=== PATIENT | male | born 1950 | race Caucasian/White ===

== ENCOUNTER 2021-06-22 22:54 | Inpatient (IN) | payer MEDICARE, SELFPAY ==
[2021-06-22 22:56] VITALS: BP 96/82; PULSE 131; RESP 24; TEMP 36.8; O2SAT 100; BMI 24.2
--- NOTE | 2021-06-22 23:10 | EKG12_ITS ---
Test Reason : DYSRHYTHMIA Blood Pressure : / mmHG Vent. Rate : 132 BPM Atrial Rate : 144 BPM P-R Int : 000 ms QRS Dur : 082 ms QT Int : 326 ms P-R-T Axes : 000 063 031 degrees QTc Int : 483 ms Atrial fibrillation Abnormal ECG Confirmed by BRIAN WALTER, PABLITO ([id number]), editor sound LOAN WILKS ([id number]) on 06/23/2021 1:55:57 P M Referred By: TOMMIE Confirmed By:JUDY TORRES MD
[2021-06-22] MEDS: 0.9% Normal Saline 1,000 ML 1000 ML IV (23:27)
[2021-06-22 23:36] LABS: Absolute Lymphocyte Count 0.37 X10^3/uL (0.83-4.51); Absolute Neutrophil Count 10.5 X10^3/uL (2.0-7.7); Basophil# 0.01 X10^3/uL; Basophil% 0.1 % (0-1); Eosinophil# 0.03 X10^3/uL; Eosinophils% 0.3 % (0-5); Hematocrit 20.4 % (40-54); Hemoglobin 6.8 g/dL (13.0-16.5); Lymphocyte # 0.37 X10^3/ul (0.83-4.51); Lymphocyte % 3.2 % (19-41); Mean Corp Hgb Conc 33.3 g/dL (32-36); Mean Corpuscular Hgb 27.5 pg (27.0-32.0); Mean Corpuscular Volume 82.6 fL (80-94); Mean Platelet Vol. 11.2 fl (6.2-12.0); Monocyte# 0.51 X10^3/uL; Monocyte% 4.4 % (0-10); NRBC Flagged by Analyzer 0 % (0-5); Neutrophil # 10.53 X10^3/uL (2.7-7.7); Neutrophil % 91.1 % (47-70); POSITIVE DIFFERENTIAL YES; Platelet Count 137 K/mm3 (150-450); RBC Distribution Width CV 16.3 % (11.6-14.6); RBC Distribution Width SD 49.6 fl (35.1-43.9); Red Blood Count 2.47 M/mm3 (4.6-6.2); White Blood Count 11.6 K/mm3 (4.4-11.0)
--- NOTE | 2021-06-22 23:48 | EDS_ITS ---
HPI HPI - GI History of Present Illness Chief Complaint: GI Bleed Informant: EMS and SNF Abdominal Pain/Flank Pain Onset: Today Worsened by: Nothing Relieved by: Nothing Nausea/Vomiting/Emesis GI Symptom: Positive for Nausea and Vomiting Quality: Positive for Hematemesis Diarrhea/Melena/Hematochezia GI Symptom: Positive for Hematochezia Stool Quality: Positive for BRB per rectum Narrative Narrative: Patient presents with gastrointestinal bleeding that was noticed today. Patient is from a [facility] facility. Patient was noted to have hematemesis and bright red rectal bleeding today. Patient is nonverbal and is a poor historian. Patient was also noted to have a low blood pressure upon arrival to the emergency department. [facility] Medical History A-fib CKD (chronic kidney disease) Diabetes type 2, controlled Diabetic nephropathy Diabetic retinopathy Gout Hyperlipemia Hypertension Irregular heart beat Nephrolithiasis Home Medications doxazosin 2 mg PO QHS 06/27/17 [History Last Taken Unknown] metoprolol succinate 50 mg PO DAILY 06/27/17 [History Last Taken 07/04/17 07:30] simvastatin 20 mg PO QHS 06/27/17 [History Last Taken Unknown] albuterol sulfate 2.5 mg INHALATION Q2H PRN 06/22/21 [History Last Taken Unknown] apixaban [Eliquis] 2.5 mg PO BID 06/22/21 [History Last Taken Unknown] dexamethasone 6 mg PO DAILY 06/22/21 [History Last Taken Unknown] diltiazem HCl 180 mg PO DAILY 06/22/21 [History Last Taken Unknown] fluoxetine [Prozac] 20 mg PO DAILY 06/22/21 [History Last Taken Unknown] lisinopril 40 mg PO DAILY 06/22/21 [History Last Taken Unknown] melatonin 3 mg PO QHS 06/22/21 [History Last Taken Unknown] ergocalciferol (vitamin D2) 1,250 mcg PO QWEEK 06/23/21 [History Last Taken Unknown] Allergy/AdvReac Type Severity Reaction Status Date / Time Iodinated Contrast Media Allergy Hives Verified 06/22/21 22:55 [Iodinated Contrast- Oral and IV Dye] Family History (Updated 06/23/21 @ 04:[address] Sheridan Sheridan MD) Mother Heart disease Father Heart disease Surgical History Hx of appendectomy Hx of arteriovenostomy for renal dialysis Hx of cholecystectomy Hx of shoulder surgery Social History (Updated 06/23/21 @ 04:[address] Sheridan Sheridan MD) housing: halfway Smoking Status: Former smoker second hand exposure: No alcohol intake: never substance use type: does not use caffeine: Yes what type of physical activity do you participate in: none seatbelt use: always ROS ROS ED Review of Systems ROS Unobtainable: due to mental condition and due to mental status EXAM Physical Exam Const Vital Signs: 06/22/21 22:56 06/23/21 00:27 06/23/21 02:11 Temperature 98.2 F 96.8 F L Temperature Source Oral Temporal Pulse Rate 131 H 123 H 109 H Respiratory Rate 24 H 21 H 22 H Blood Pressure 96/82 H 78/56 L 60/43 L Blood Pressure Mean 86 63 48 Blood Pressure Source Monitor Blood Pressure Position Pulse Ox 100 100 100 Oxygen Delivery Method Room Air Nasal Cannula Oxygen Flow Rate (L/min) 5 06/23/21 02:24 06/23/21 02:25 06/23/21 02:26 Temperature 96.8 F L 96.2 F L Temperature Source Temporal Temporal Pulse Rate 115 H 115 H 120 H Respiratory Rate 19 H 19 H 24 H Blood Pressure 56/34 L 56/34 L 78/52 L Blood Pressure Mean 41 41 60 Blood Pressure Source Blood Pressure Position Semi-Fowlers Pulse Ox 100 100 100 Oxygen Delivery Method Nasal Cannula Nasal Cannula Nasal Cannula Oxygen Flow Rate (L/min) 5 5 5 06/23/21 03:01 Temperature Temperature Source Pulse Rate 129 H Respiratory Rate 24 H Blood Pressure 96/49 L Blood Pressure Mean 64 Blood Pressure Source Blood Pressure Position Pulse Ox 100 Oxygen Delivery Method Nasal Cannula Oxygen Flow Rate (L/min) Positive well nourished and well developed General Appearance ED: well developed and pallor HEENT Reports moist mucous membranes Neck supple and no JVD Resp normal respiratory effort and clear to auscultation bilaterally Cardio Rate: tachycardic Rhythm: abnormal rhythm irregularly irregular GI non-tender Palpation: soft Neuro CN's II-XII intact bilaterally Sensorium / Orientation: alert and confused Skin General Skin Exam: pallor MDM MDM MDM Narrative Medical decision making narrative: Patient was given IV fluids. CBC shows a hemoglobin of 6.8 and hematocrit of 20.4. White blood cell count is slightly elevated at 11.6. PT with INR were 16.7 and 1.4. PTT was 42.2. Comprehensive metabolic profile showed a BUN of 88 and creatinine of 5.13. EKG was obtained. On my interpretation, it showed atrial fibrillation with a rate of 132. QRS was normal. QTC was normal. Berkley was normal. There are no acute ST or T wave changes. Patient was given a dose of Protonix here. Patient was typed and crossed for a unit of blood. Transfusion was started. Case was discussed with the . She is agreeable to having the patient get a transfusion of blood and endoscopy if needed. She is agreeable to having the patient started on vasopressors. Because of this, a right internal jugular triple-lumen catheter was placed. The right internal jugular area was cleaned and prepped in a sterile manner. 1% lidocaine was infiltrated locally. A triple-lumen catheter was inserted under sterile conditions using ultrasound guidance and Seldinger technique. Patient tolerated the procedure well. Postprocedure chest x-ray was ordered. Case was discussed with the hospitalist. She will admit the patient to ICU. Lab Data Attestation: I reviewed the patient's lab results. Labs: Laboratory Results - last 24 hr 06/22/21 06/22/21 06/22/21 22:34 22:34 22:34 WBC 11.6 H RBC 2.47 L Hgb 6.8 L Hct 20.4 L MCV 82.6 MCH 27.5 MCHC 33.3 RDW Std Deviation 49.6 H RDW Coeff of Rose 16.3 H Plt Count 137 L MPV 11.2 Immature Gran % (Auto) 0.900 Neut % (Auto) 91.1 H Lymph % (Auto) 3.2 L [place] % (Auto) 4.4 Eos % (Auto) 0.3 Baso % (Auto) 0.1 Absolute Neuts (auto) 10.5 H Absolute Lymphs (auto) 0.37 L Nucleated RBC % 0 Hypochromasia 1+ Anisocytosis 1+ Acanthocytes (Spur) RARE PT 16.7 H INR 1.4 APTT 42.2 H Sodium 134 L Potassium 4.2 Chloride 93 L Carbon Dioxide 33.0 H Anion Gap 8 BUN 88 H Creatinine 5.13 H Estim Creat Clear Calc 13.21 Est GFR (MDRD) Af Amer 14 L Est GFR (MDRD) Non-Af 12 L BUN/Creatinine Ratio 17.2 Glucose 266 H Calcium 6.9 L Total Bilirubin 0.40 AST 8 L ALT 7 L Alkaline Phosphatase 69 Troponin I High Sens 7 Total Protein 4.3 L Albumin 1.0 L Globulin 3.3 Albumin/Globulin Ratio 0.3 L Lipase 34 L Blood Type Antibody Screen Crossmatch 06/22/21 23:35 WBC RBC Hgb Hct MCV MCH MCHC RDW Std Deviation RDW Coeff of Rose Plt Count MPV Immature Gran % (Auto) Neut % (Auto) Lymph % (Auto) [place] % (Auto) Eos % (Auto) Baso % (Auto) Absolute Neuts (auto) Absolute Lymphs (auto) Nucleated RBC % Hypochromasia Anisocytosis Acanthocytes (Spur) PT INR APTT Sodium Potassium Chloride Carbon Dioxide Anion Gap BUN Creatinine Estim Creat Clear Calc Est GFR (MDRD) Af Amer Est GFR (MDRD) Non-Af BUN/Creatinine Ratio Glucose Calcium Total Bilirubin AST ALT Alkaline Phosphatase Troponin I High Sens Total Protein Albumin Globulin Albumin/Globulin Ratio Lipase Blood Type O POSITIVE Antibody Screen NEGATIVE Crossmatch See Detail Radiography Diagnostic Testing: Clinical Impression(s) from Imaging Studies Chest X-Ray 06/23/21 03:00 IMPRESSION: Right IJ central catheter terminates over the superior cavoatrial junction. Multifocal pneumonia versus pulmonary edema. Electronically Signed: Lloyd Samuel MD at 4:47 EDT Tel , Service support , Treatment and Re-Evaluation Vital Sign Attestation:: Vital signs were reviewed prior to admission. Patient's blood pressure is improving. Heart rate is improving. Respirations are stable. Patient is afebrile. Procedures Other Procedures Procedure(s): The right anterior neck was cleaned and draped in a sterile manner. 1% lidocaine was infiltrated subcutaneously. Under ultrasound guidance, the right internal jugular vein was cannulated and a guidewire was inserted. A venous dilator was placed over the guidewire and removed. A triple-lumen catheter was then inserted over the guidewire. The guidewire was removed. The triple-lumen catheter was sutured in place. The ports were aspirated and flushed. There is good blood return. Sterile dressing was applied. Patient tolerated the procedure well. Postprocedure chest x-ray was obtained. Discharge Plan Dx/Rx/DC Orders Clinical Impression: Gastrointestinal bleeding, Anemia Disposition Disposition: Acute Care Hospital [facility] Discharge Date/Time: 06/23/21 04:32
[2021-06-22 23:51] LABS: ALB/GLOB Ratio 0.3 RATIO (0.9-2.4); AST(SGOT) 8 U/L (15-37); Alanine Aminotransfer ALT/SGPT 7 U/L (16-61); Alkaline Phosphatase 69 U/L (45-117); Anion Gap 8 (5-15); BUN 88 mg/dL (7-18); BUN/Creat Ratio 17.2 RATIO (10-20); Calcium,Total 6.9 mg/dL (8.5-10.1); Chloride 93 mmol/L (98-107); Creatinine, Serum 5.13 mg/dL (0.70-1.30); EST Glomerular Filtration Rate 12 mL/min (>60); Est Glom Filt Rate - Afr Amer 14 mL/min (>60); Estimated Creatinine Clearance 13.21 ml/min; Globulin 3.3 g/dL (2.2-4.2); Glucose 266 mg/dL (74-106); Lipase 34 U/L (73-393); Potassium 4.2 mmol/L (3.5-5.1); Protein, Total 4.3 g/dL (6.4-8.2); Sodium Level 134 mmol/L (136-145); Troponin-I HS 7 pg/mL (3.0-78.0)
[2021-06-22 23:56] LABS: Differential Indicated SCAN CRITERIA MET
[2021-06-23] VITALS (45 sets, daily range): BP systolic 56–126; BP diastolic 34–72; PULSE 100–147; RESP 15–33; TEMP 35.7–37.1; O2SAT 2–100; BMI 22.4
--- NOTE | 2021-06-23 | IMM_PTH ---
PATIENT: VALENTINA MAHONEY LOC: [facility] U#:[id number] AGE/SX: 70/M ROOM: [facility] RE06/23/[address]: Dr. Janusz Peralta MD : 1950 BED: 1 DIS: 06/30/2021 SPEC #: [id number] RECD: 06/27/21 12:44 STATUS: TRU REQ #: [id number] KENYATTA: 06/23/21 00:[address]: Hermes Interiano DEPT: IMMUNOHISTOCHEMISTRY RECD BY: Yolanda Talamantes ENTERED: 06/27/21 12:45 SP TYPE: IMMUNO OTHR DR: MD Dr. Sheridan Parry MD Dr. Derek Brown, DO Dr. Nicholas F Kotsonis, MD Dr. Paul Nielsen, MD Tissues: Stomach, NOS Procedures: H Pylori (initial) PHYSICIAN & INSTITUTION [place] [id number] SPECIMEN INFORMATION: Tissue Source: 2.1 cm crater ulcer at incisura Clinical Info: GI bleed Specimen Number: [id number] CPT code: 97925 METHODOLOGY: Deparaffinized sections of prefer/formalin-fixed tissue or PAP/DQ stained slides are incubated with monoclonal/polyclonal antibodies/oligonucleotide probes. Localization is made via biotin free immunoperoxidase method. Appropriate controls are performed and reacted as expected. Results on target cell population are indicated in the following table: RESULTS: ANTIBODY / CLONE RESULT H Pylori (polyclonal) negative These tests were developed and their performance characteristics determined by [facility]. They may not have been cleared or approved by the U.S. Food and Drug Administration. The FDA has determined that such clearance or approval is not necessary. The above immunohistochemical/dualISH markers are ordered and reviewed by the Pathologist. INTERPRETATION: Gastric biopsy, ulcer at incisura: Negative for Helicobacter pylori organisms. SJ:cj 06/28/2021
[2021-06-23 00:04] LABS: International Normalized Ratio 1.4; Prothrombin Time (Protime)PT. 16.7 SECONDS (11.7-14.9)
[2021-06-23 00:05] LABS: Partial Thromboplast Time 42.2 Seconds (24.1-36.2)
--- NOTE | 2021-06-23 01:15 | PCM.HP.STD ---
HPI - General General Date of Admission: 06/23/21 Date of Service: 06/23/21 Chief Complaint: Hematemesis, rectal bleeding, hematuria HPI Narrative The patient is a 70 y/o M w/ PMHx: ESRD on HD, HTN, HLD, PAF, Diabetes mellitus type II, Former tobacco use who presents to the [facility] ED on 06/23/21 from [facility] with history of onset significant bouts of hematemesis noted to be bright red as well as bright red rectal bleeding and possibly hematuria with lower blood pressures as well as increased fatigue, malaise and confusion prompting ED referral. No reported history of any fevers, chills, cough or dyspnea at facility. Work-up in the ED included T 98.2, heart rate 131, BP initially 96/82 with most recent repeat 78/56, respiratory rate 24, on her percent on room air, CBC with WBC 11.6, hemoglobin 6.8, platelet 137 with left shift and lymphopenia, coags with PT 16.7, INR 1.4, PTT 42.2, CMP with sodium 134, chloride 93, carbon oxide 33, BUN/creatinine 88/5.13, glucose 266, not marked hepatic profile, lipase 34, type and cross performed per ED physician for 1 unit and discussed with ED with request for 2nd unit also. In the ED patient administered pantoprazole 80 mg IV bolus x1 as well as 1 L normal saline. Also discussed plan for ED to discuss case with Gastroenterology and Kcentra ordered/discussed with Pharmacy. Patient became increasingly hypotension in the ED with central line placement and NEP initiated. [facility] Medical History (Updated 06/23/21 @ 04:[address] Sheridan Sheridan MD) A-fib CKD (chronic kidney disease) Diabetes type 2, controlled Diabetic nephropathy Diabetic retinopathy Gout Hyperlipemia Hypertension Irregular heart beat Nephrolithiasis Home Medications doxazosin 2 mg PO QHS 06/27/17 [History Last Taken Unknown] metoprolol succinate 50 mg PO DAILY 06/27/17 [History Last Taken 07/04/17 07:30] simvastatin 20 mg PO QHS 06/27/17 [History Last Taken Unknown] albuterol sulfate 2.5 mg INHALATION Q2H PRN 06/22/21 [History Last Taken Unknown] apixaban [Eliquis] 2.5 mg PO BID 06/22/21 [History Last Taken Unknown] dexamethasone 6 mg PO DAILY 06/22/21 [History Last Taken Unknown] diltiazem HCl 180 mg PO DAILY 06/22/21 [History Last Taken Unknown] fluoxetine [Prozac] 20 mg PO DAILY 06/22/21 [History Last Taken Unknown] lisinopril 40 mg PO DAILY 06/22/21 [History Last Taken Unknown] melatonin 3 mg PO QHS 06/22/21 [History Last Taken Unknown] Allergy/AdvReac Type Severity Reaction Status Date / Time Iodinated Contrast Media Allergy Hives Verified 06/22/21 22:55 [Iodinated Contrast- Oral and IV Dye] Family History (Updated 06/23/21 @ 04:[address] Sheridan Sheridan MD) Mother Heart disease Father Heart disease Surgical History Hx of appendectomy Hx of arteriovenostomy for renal dialysis Hx of cholecystectomy Hx of shoulder surgery Social History (Updated 06/23/21 @ 04:[address] Sheridan Sheridan MD) housing: [facility] Smoking Status: Former smoker second hand exposure: No alcohol intake: never substance use type: does not use caffeine: Yes what type of physical activity do you participate in: none seatbelt use: always ROS Review of Systems ROS Unobtainable: due to encephalopathy Vital Signs Vital Signs Vital Signs: 06/22/21 22:56 06/23/21 00:27 Temperature 98.2 F Temperature Source Oral Pulse Rate 131 H 123 H Respiratory Rate 24 H 21 H Blood Pressure 96/82 H 78/56 L Blood Pressure Mean 86 63 Pulse Ox 100 100 Oxygen Delivery Method Room Air Weight Weight: 164 lb 0.383 oz Body Mass Index (BMI) 24.2 Physical Exam Narrative Physical Examination: General: Patient awakens to stimuli, not markedly alert, lethargic, not answering orientation questions secondary to fatigue, remains cooperative and following some commands, laying in the ED bed, significantly ill and poor appearing. Skin: Normal color, normal turgor, no icterus, no cyanosis. HEENT: AT/NC, EOMI, PERRLA, dry MM, no carotid bruits or JVD noted. Lungs: Diminished, greater bases, increased respiratory rate, no rales, ronchi or wheezing. Heart: Irregular irregular; no gallop, rub audible. Abdomen: Soft, NTTP, ND, hyperactive BS, no HSM. Extremities: No cyanosis, clubbing, or edema. Neurological: Patient awakens to stimuli, not markedly alert, lethargic, not answering orientation questions secondary to fatigue, remains cooperative and following some commands, cognitive function not baseline intact; pupils equally reactive to light and accommodation, cranial nerves II-XII grossly normal, moving all 4 extremities, no focal deficits, strength severely global decrease secondary to acute presentation. Psychiatric: Affect appears ill-appearing, flat, lethargic no acute evidence of depressive or anxiety feelings. Results Lab / Micro Data Result Diagrams: 06/22/21 22:34 06/22/21 22:34 Labs: Laboratory Results - last 24 hr 06/22/21 22:34: WBC 11.6 H, RBC 2.47 L, Hgb 6.8 L, Hct 20.4 L, MCV 82.6, MCH 27.5, MCHC 33.3, RDW Std Deviation 49.6 H, RDW Coeff of Rose 16.3 H, Plt Count 137 L, MPV 11.2, Immature Gran % (Auto) 0.900, Neut % (Auto) 91.1 H, Lymph % (Auto) 3.2 L, [place] % (Auto) 4.4, Eos % (Auto) 0.3, Baso % (Auto) 0.1, Absolute Neuts (auto) 10.5 H, Absolute Lymphs (auto) 0.37 L, Nucleated RBC % 0 06/22/21 22:34: PT 16.7 H, INR 1.4, APTT 42.2 H 06/22/21 22:34: Sodium 134 L, Potassium 4.2, Chloride 93 L, Carbon Dioxide 33.0 H, Anion Gap 8, BUN 88 H, Creatinine 5.13 H, Estim Creat Clear Calc 13.21, Est GFR (MDRD) Af Amer 14 L, Est GFR (MDRD) Non-Af 12 L, BUN/Creatinine Ratio 17.2, Glucose 266 H, Calcium 6.9 L, Total Bilirubin 0.40, AST 8 L, ALT 7 L, Alkaline Phosphatase 69, Troponin I High Sens 7, Total Protein 4.3 L, Albumin 1.0 L, Globulin 3.3, Albumin/Globulin Ratio 0.3 L, Lipase 34 L 06/22/21 23:35: Blood Type O POSITIVE, Antibody Screen NEGATIVE, Crossmatch See Detail Assessment & Plan Assessment/Plan (1) Hemorrhagic shock: (2) Gastrointestinal bleeding: QUALIFIERS: GI bleed type/associated pathology: unspecified gastrointestinal hemorrhage type Qualified Code(s): K92.2 - Gastrointestinal hemorrhage, unspecified PLAN: The patient is a 70 y/o M w/ PMHx: ESRD on HD, HTN, HLD, PAF, Diabetes mellitus type II, Former tobacco use who presents to the [facility] ED on 06/23/21 from [facility] with history of onset significant bouts of hematemesis noted to be bright red as well as bright red rectal bleeding and possibly hematuria with lower blood pressures as well as increased fatigue, malaise and confusion prompting ED referral. 1. Acute Hemorrhagic Shock secondary to Acute GI Bleed and possibly hematuria w/ resultant Acute Blood Loss Anemia on Chronic Anemia/AOCD and Acute Encephalopathy: Will admit to the ICU, continue consultation with gastroenterology and melter caster, given currently MAP less than 65 will attempt additional aggressive IV fluid bolus, continue planned total 2 u PRBC administration, continue NEP given MAP < 65, maintain on IVFs, will continue IV PPI, n.p.o. status. Holding patient home Eliquis therapy. 2. Paroxysmal atrial fibrillation with RVR: EKG in ED w/ atrial fibrillation with RVR. Will maintain on telemetry, obtain cardiac enzyme serial set, obtain magnesium level, obtain ECHO, obtain TSH level, holding patient Eliquis given presentation as noted above #1, given blood pressure will initiate amnio bolus and drip with continued close vital sign monitoring. 3. Pneumonia, Possible Aspiration, Possible GN/GP Organism: CXR in the ED w/ infiltrate, concern for aspiration given current presentation, obtained following central line placement, awaiting final read. Will maintain on oxygen with wean as tolerated to room air, PRN albuterol, maintained on IV Zosyn and Vancomycin w/ pending MRSA screen and de-escalation as able, HOB, IS parameters w/ pending sputum cultures and urine antigens. Bld cx x 2 requested. This may possibly be related to the hypotension in addition to #1. 4. Diabetes mellitus type II: Hold oral home regimen, continue home insulin regimen, NPO status w/ q 6 hour accu checks w/ ISS. 5. ESRD: Patient with recent dialysis on day prior to current presentation, Sunday, will consult nephrology. 6. Hypertension: Given presentation holding all patient hypertensive regimen, add back once appropriate. 7. Hyperlipidemia: Continue home statin regimen. 8. Anxiety and depression: We will continue patient home fluoxetine regimen. 9. DVT prophylaxis: SCDs, holding patient home Eliquis regimen given acute presentation as noted #1. 10. CODE status: Patient at facility is DNR CCA no intubation status which was discussed with patient's spouse who confirmed this. Discussed CODE status at length including difference between FULL code, DNR-CCA and DNR-CC status. Following discussions about the differences in these status, requested DNR CCA?no intubation however patient's would like patient to receive medical interventions including placement of central line, pressor therapy, potential endoscopies. Advanced Care Planning Face to Face Time: 16 minutes. Charges/Coding Visit Charges Inpatient E&M: 25658 Init Hosp L3 Procedures Hospitalists Procedures: 13917 Advncd Care Plan 30 Min
[2021-06-23 01:30] LABS: Acanthocytes RARE; Anisocytosis 1+; Hypochromasia 1+
--- NOTE | 2021-06-23 02:24 | ED.RN ---
PT NOW HAVING LOW GI BLEED. PT SLOWLY OOZING BLOODY FECAL MATERIAL WHEN NEW BRIEF WAS APPLIED.
--- NOTE | 2021-06-23 03:00 | RAD_ITS ---
STUDY: X-RAY CHEST REASON FOR EXAM: Male, 70 years old. LINE PLACEMENT TECHNIQUE: Portable, semierect, AP chest radiograph COMPARISON: None. FINDINGS: Bilateral perihilar and infrahilar pulmonary infiltrates. There is no demonstrated pleural abnormality. There is borderline cardiomegaly. Normal mediastinum and astrid. Normal visualized pulmonary arteries. Normal visualized aortic arch and descending thoracic aorta. There is no demonstrated abnormality of the visualized soft tissue structures of the upper abdomen. RAD/CXR for Line Placement IMPRESSION: Right IJ central catheter terminates over the superior cavoatrial junction. Multifocal pneumonia versus pulmonary edema. Electronically Signed: Lloyd Samuel MD at 4:47 EDT Tel , Service support ,
[2021-06-23] MEDS: HUMAN PROTHROMBIN COMPLX(PCC) 3,500 UNIT in Viaflex Bag 1 BAG 500 UNIT IV (04:15)
[2021-06-23 04:17] LABS: Magnesium 1.7 mg/dL (1.6-2.6); Phosphorus 1.1 mg/dL (2.5-4.9)
--- NOTE | 2021-06-23 04:48 | ECHOD_ITS ---
Reason For Study: PAF Procedure This was a 2D Doppler, Color Flow transthoracic echocardiogram. Exam performed portable in ICU/CCU. Left Ventricle Normal LV size. The estimated ejection fraction is 60 %. Unable to assess diastolic dysfunction. No regional wall motion abnormalities noted. Right Ventricle Normal RV size. Normal systolic function. Atria The left atrium is mildly enlarged. Normal right atrium. No doppler evidence for ASD. Mitral Valve There is no mitral valve stenosis. Trivial mitral valve insufficiency. Tricuspid Valve There is no tricuspid stenosis. No tricuspid valve insufficiency. Unable to estimate RV systolic pressure due to inadequate jet, pulmonary artery pressure probably normal. Aortic Valve Trisinus/trileaflet aortic valve. Aortic sclerosis, no stenosis. There is no aortic stenosis. No aortic valve insufficiency. Pulmonic Valve There is no pulmonic valvular stenosis. No pulmonic valve insufficiency. Great Vessels Normal aortic root. Pericardium/Pleural No pericardial effusion. MMode/2D Measurements & Calculations LVIDd: 4.3 cm IVSd: 1.1 cm Ao root diam: 3.6 cm LVIDs: 3.0 cm LVPWd: 1.1 cm RVDd: 3.5 cm FS: 31.1 % LAV(MOD-bp): 92.6 ml LVAd ap4: 33.0 cm2 LVAd ap2: 35.9 cm2 LAV(MOD-bp) Indexed: 50.4 ml/m2 LVLd ap4: 9.5 cm LVLd ap2: 10.0 cm LAV(MOD-sp2): 72.1 ml EDV(MOD-sp4): 96.5 ml EDV(MOD-sp2): 108.7 ml LAV(MOD-sp4): 120.1 ml EDV(sp4-el): 96.8 ml EDV(sp2-el): 109.7 ml LVAs ap4: 21.0 cm2 LVAs ap2: 23.9 cm2 LVLs ap4: 8.7 cm LVLs ap2: 8.8 cm ESV(MOD-sp4): 45.3 ml ESV(MOD-sp2): 55.8 ml ESV(sp4-el): 43.2 ml ESV(sp2-el): 54.9 ml EF(MOD-sp4): 53.1 % EF(MOD-sp2): 48.7 % EF(sp4-el): 55.4 % SV(MOD-sp4): 51.2 ml SV(MOD-sp2): 52.9 ml SV(sp4-el): 53.6 ml LA dimension(2D): 3.6 cm LA A4 area: 30.2 cm2 RA A4 area: 17.7 cm2 Doppler Measurements & Calculations MV E max lucius: 91.5 cm/sec Ao V2 max: 160.0 cm/sec LV V1 max: 106.1 cm/sec Ao max P.2 mmHg LV V1 max P.5 mmHg Ao V2 mean: 107.7 cm/sec LV V1 mean P.6 mmHg Ao mean P.2 mmHg LV V1 mean: 77.0 cm/sec Ao V2 VTI: 24.3 cm LV V1 VTI: 17.9 cm PA V2 max: 80.1 cm/sec ECHO/Echo Complete Interpretation Summary The estimated ejection fraction is 60 %. Unable to assess diastolic dysfunction. The left atrium is mildly enlarged. Trivial mitral valve insufficiency. Aortic sclerosis, no stenosis. Ordering Physician: Sheridan Sheridan Referring Physician: Lloyd Bernal Performed By: Berna Barry RDCS
[2021-06-23 05:13] LABS: Absolute Lymphocyte Count 0.55 X10^3/uL (0.83-4.51); Absolute Neutrophil Count 13.1 X10^3/uL (2.0-7.7); Basophil# 0.03 X10^3/uL; Basophil% 0.2 % (0-1); Eosinophil# 0.01 X10^3/uL; Eosinophils% 0.1 % (0-5); Hematocrit 19.7 % (40-54); Hemoglobin 6.7 g/dL (13.0-16.5); Lymphocyte # 0.55 X10^3/ul (0.83-4.51); Lymphocyte % 3.8 % (19-41); Mean Corpuscular Hgb 28.4 pg (27.0-32.0); Mean Corpuscular Volume 83.5 fL (80-94); Mean Platelet Vol. 9.5 fl (6.2-12.0); Monocyte# 0.47 X10^3/uL; Monocyte% 3.3 % (0-10); NRBC Flagged by Analyzer 0 % (0-5); Neutrophil # 13.11 X10^3/uL (2.7-7.7); Neutrophil % 91.7 % (47-70); POSITIVE DIFFERENTIAL YES; Platelet Count 139 K/mm3 (150-450); RBC Distribution Width CV 16.7 % (11.6-14.6); Red Blood Count 2.36 M/mm3 (4.6-6.2); White Blood Count 14.3 K/mm3 (4.4-11.0)
[2021-06-23] MEDS: 0.9% Normal Saline 1,000 ML 100 ML IV (05:18)
[2021-06-23 05:21] LABS: Differential Indicated SCAN CRITERIA MET
[2021-06-23 05:35] LABS: ALB/GLOB Ratio 0.3 RATIO (0.9-2.4); AST(SGOT) 7 U/L (15-37); Alanine Aminotransfer ALT/SGPT 8 U/L (16-61); Albumin, Serum 0.9 g/dL (3.2-5.0); Alkaline Phosphatase 66 U/L (45-117); Anion Gap 9 (5-15); BUN 95 mg/dL (7-18); BUN/Creat Ratio 18.3 RATIO (10-20); Calcium,Total 6.8 mg/dL (8.5-10.1); Chloride 94 mmol/L (98-107); EST Glomerular Filtration Rate 12 mL/min (>60); Est Glom Filt Rate - Afr Amer 14 mL/min (>60); Estimated Creatinine Clearance 12.72 ml/min; Globulin 3.2 g/dL (2.2-4.2); Glucose 274 mg/dL (74-106); Potassium 4.2 mmol/L (3.5-5.1); Protein, Total 4.1 g/dL (6.4-8.2); Sodium Level 134 mmol/L (136-145)
[2021-06-23 05:36] LABS: Anisocytosis 1+
[2021-06-23 05:38] LABS: Procalcitonin 0.97 ng/mL (0.00-0.09)
--- NOTE | 2021-06-23 05:46 | EX.PCM.CONCC ---
Assessment & Plan Assessment/Plan (1) Hemorrhagic shock: PLAN: RECOMMENDATIONS: 1. Transfuse 2 units of packed red blood cells. Check H&H posttransfusion. 2. Continue PPI therapy twice daily. 3. Continue Levophed to maintain a mean arterial pressure at or above 65 mmHg. 4. Discontinue IV fluids. 5. Continue empiric antimicrobials for now. 6. GI and nephrology consultations are pending. IMPRESSIONS: 1. Hemorrhagic shock The patient presented with acute blood loss anemia, with a drop in hemoglobin from 12 on June 15 to a hemoglobin of 6.8 on presentation. The patient had been on systemic anticoagulation with Eliquis. He did receive Kcentra and vitamin K. The patient was also started on PPI therapy. To date, he is only received 1 unit of packed red blood cells. Hemoglobin remains less than 7 g/dL. Therefore, we will plan to type and cross for 2 additional units of packed red blood cells. The patient will be continued on Levophed to maintain a mean arterial pressure at or above 65 mmHg. 2. Recent diagnosis of COVID-19/residual bilateral infiltrates on chest imaging It is unclear whether the patient's chest imaging study demonstrates an acute process versus residual findings from his prior Covid infection. I do not have any outside chest imaging studies to be able to compare to. For now, it is reasonable to continue empiric antimicrobials for now. 3. Paroxysmal atrial fibrillation with RVR Initial troponin was unremarkable. Echocardiogram is pending. Continue amiodarone as ordered for now. 4. End-stage renal disease on hemodialysis Consultation placed to nephrology to assist with ongoing hemodialysis needs. 5. Diabetes mellitus/hypertension/hyperlipidemia/anxiety/depression Complicates care, management, recovery and prognosis. Continue to hold home antihypertensives for now. TIME: 40 minutes of critical care time, independent of procedures, was spent addressing the patient's hemorrhagic shock, bilateral infiltrates on chest imaging, paroxysmal atrial fibrillation with RVR, end-stage renal disease, review of all data and collaboration with the care team. ([id number]) HPI Consult Data Date of Consult: 06/23/21 HPI Narrative Reason for Consultation: Hemorrhagic shock HPI Narrative: The patient is a 70-year-old male, with a history as outlined below, who presented to the emergency department [facility] with hematemesis and lower GI bleeding. The patient was recently admitted at [facility] at the beginning of June after having been diagnosed with COVID-19 on June 04. As an outpatient, the patient was prescribed Eliquis. The patient last had a hemoglobin documented to be 12.0 on June 15 through [facility]. On presentation to the emergency department, the patient was noted to be afebrile and hypotensive. The patient was also notably tachycardic and tachypneic. Initial laboratory evaluation revealed a white blood cell count of 12,000 with a hemoglobin of 6.8 g/dL and platelet count of 137,000. Coagulation profile revealed an INR of 1.4. Chemistry profile was notable for a sodium of 134, chloride of 93, bicarbonate of 33 and creatinine of 5.13. Phosphorus was low at 1.9. Although the patient did receive supplemental IV fluid hydration, he remains hypotensive, necessitating central venous catheter placement. Follow-up chest x-ray revealed an appropriately positioned right IJ triple-lumen catheter with bilateral airspace disease. The patient was started on broad-spectrum antimicrobials, after having received Kcentra and vitamin K. The patient was started on a PPI and amiodarone. He was transferred to the medical intensive care unit for further management. The patient currently remains in atrial fibrillation. He is on Levophed at 10 mcg/min to maintain hemodynamic stability. [facility] Medical History A-fib CKD (chronic kidney disease) Diabetes type 2, controlled Diabetic nephropathy Diabetic retinopathy Gout Hyperlipemia Hypertension Irregular heart beat Nephrolithiasis Home Medications doxazosin 2 mg PO QHS 06/27/17 [History Last Taken Unknown] metoprolol succinate 50 mg PO DAILY 06/27/17 [History Last Taken 07/04/17 07:30] simvastatin 20 mg PO QHS 06/27/17 [History Last Taken Unknown] albuterol sulfate 2.5 mg INHALATION Q2H PRN 06/22/21 [History Last Taken Unknown] apixaban [Eliquis] 2.5 mg PO BID 06/22/21 [History Last Taken Unknown] dexamethasone 6 mg PO DAILY 06/22/21 [History Last Taken Unknown] diltiazem HCl 180 mg PO DAILY 06/22/21 [History Last Taken Unknown] fluoxetine [Prozac] 20 mg PO DAILY 06/22/21 [History Last Taken Unknown] lisinopril 40 mg PO DAILY 06/22/21 [History Last Taken Unknown] melatonin 3 mg PO QHS 06/22/21 [History Last Taken Unknown] ergocalciferol (vitamin D2) 1,250 mcg PO QWEEK 06/23/21 [History Last Taken Unknown] Allergy/AdvReac Type Severity Reaction Status Date / Time Iodinated Contrast Media Allergy Hives Verified 06/22/21 22:55 [Iodinated Contrast- Oral and IV Dye] Family History (Updated 06/23/21 @ 04:[address] Sheridan Sheridan MD) Mother Heart disease Father Heart disease Surgical History Hx of appendectomy Hx of arteriovenostomy for renal dialysis Hx of cholecystectomy Hx of shoulder surgery Social History (Updated 06/23/21 @ 04:[address] Sheridan Sheridan MD) housing: half-way Smoking Status: Former smoker second hand exposure: No alcohol intake: never substance use type: does not use caffeine: Yes what type of physical activity do you participate in: none seatbelt use: always ROS Review of Systems ROS Unobtainable: due to encephalopathy Physical Exam Const no apparent distress; Negative for healthy appearing General Appearance: lethargic HEENT normocephalic and head/scalp atraumatic Eyes PERRL Neck supple General: trachea midline Chest inspection of chest normal Resp Auscultation: diminished lung sounds; Negative for rales, rhonchi or wheezes Cardio S1 normal heart sound and S2 normal heart sound Rhythm: abnormal rhythm GI normal to inspection, nondistended, normoactive bowel sounds Extremity no clubbing, cyanosis or edema Neuro no focal motor deficits Psych Mood & Affect: flat affect Lab / Micro Data Result Diagrams: 06/23/21 05:00 06/23/21 05:00 Labs: Laboratory Results - last 24 hr 06/22/21 22:34: WBC 11.6 H, RBC 2.47 L, Hgb 6.8 L, Hct 20.4 L, MCV 82.6, MCH 27.5, MCHC 33.3, RDW Std Deviation 49.6 H, RDW Coeff of Rose 16.3 H, Plt Count 137 L, MPV 11.2, Immature Gran % (Auto) 0.900, Neut % (Auto) 91.1 H, Lymph % (Auto) 3.2 L, [place] % (Auto) 4.4, Eos % (Auto) 0.3, Baso % (Auto) 0.1, Absolute Neuts (auto) 10.5 H, Absolute Lymphs (auto) 0.37 L, Nucleated RBC % 0, Hypochromasia 1+, Anisocytosis 1+, Acanthocytes (Spur) RARE 06/22/21 22:34: PT 16.7 H, INR 1.4, APTT 42.2 H 06/22/21 22:34: Sodium 134 L, Potassium 4.2, Chloride 93 L, Carbon Dioxide 33.0 H, Anion Gap 8, BUN 88 H, Creatinine 5.13 H, Estim Creat Clear Calc 13.21, Est GFR (MDRD) Af Amer 14 L, Est GFR (MDRD) Non-Af 12 L, BUN/Creatinine Ratio 17.2, Glucose 266 H, Calcium 6.9 L, Total Bilirubin 0.40, AST 8 L, ALT 7 L, Alkaline Phosphatase 69, Troponin I High Sens 7, Total Protein 4.3 L, Albumin 1.0 L, Globulin 3.3, Albumin/Globulin Ratio 0.3 L, Lipase 34 L 06/22/21 23:35: Blood Type O POSITIVE, Antibody Screen NEGATIVE, Crossmatch See Detail 06/23/21 05:00: Procalcitonin 0.97 H 06/23/21 05:00: WBC 14.3 H, RBC 2.36 L, Hgb 6.7 L, Hct 19.7 L, MCV 83.5, MCH 28.4, MCHC 34.0, RDW Std Deviation 51.0 H, RDW Coeff of Rose 16.7 H, Plt Count 139 L, MPV 9.5, Immature Gran % (Auto) 0.900, Neut % (Auto) 91.7 H, Lymph % (Auto) 3.8 L, [place] % (Auto) 3.3, Eos % (Auto) 0.1, Baso % (Auto) 0.2, Absolute Neuts (auto) 13.1 H, Absolute Lymphs (auto) 0.55 L, Nucleated RBC % 0, Anisocytosis 1+ 06/23/21 05:00: Sodium 134 L, Potassium 4.2, Chloride 94 L, Carbon Dioxide 31.0, Anion Gap 9, BUN 95 H, Creatinine 5.20 H, Estim Creat Clear Calc 12.72, Est GFR (MDRD) Af Amer 14 L, Est GFR (MDRD) Non-Af 12 L, BUN/Creatinine Ratio 18.3, Glucose 274 H, Calcium 6.8 L, Total Bilirubin 0.40, AST 7 L, ALT 8 L, Alkaline Phosphatase 66, Total Protein 4.1 L, Albumin 0.9 L, Globulin 3.2, Albumin/Globulin Ratio 0.3 L 06/23/21 : Phosphorus 1.1 L*, Magnesium 1.7 Radiology Impression Chest X-Ray 06/23/21 03:00 IMPRESSION: Right IJ central catheter terminates over the superior cavoatrial junction. Multifocal pneumonia versus pulmonary edema. Electronically Signed: Lloyd Samuel MD at 4:47 EDT Tel , Service support , Charges/Coding Procedures Hospitalists Procedures: [id number] Critial Care 1st Hr
[2021-06-23 05:48] LABS: Phosphorus 1.9 mg/dL (2.5-4.9)
[2021-06-23] MEDS: Insulin Lispro 100 UNIT/ML INSULN.PEN SC ×3 (06:55→18:47)
--- NOTE | 2021-06-23 07:00 | EX.PCM.CON.G ---
HPI Consult Data Date of Consult: 06/23/21 HPI Narrative HPI Narrative: VALENTINA MAHONEY, is a 70 M with history of A. fib on Eliquis, diabetes, CKD, see the ED who presents with gastrointestinal bleeding that was noticed today. Patient is from a intermediate facility. Patient was noted to have hematemesis and bright red rectal bleeding today. Patient is nonverbal and is a poor historian. Patient was also noted to have a low blood pressure upon arrival to the emergency department. Due to persistent hypotension with rapid A. fib and RVR he was started on pressor therapy. I was consulted for management of GI bleed. [facility] Medical History (Updated 06/23/21 @ 13:58 by DONNA Espino) A-fib CKD (chronic kidney disease) Diabetes type 2, controlled Diabetic nephropathy Diabetic retinopathy Gout Hyperlipemia Hypertension Irregular heart beat Nephrolithiasis Home Medications doxazosin 2 mg PO QHS 06/27/17 [History Last Taken Unknown] metoprolol succinate 50 mg PO DAILY 06/27/17 [History Last Taken 07/04/17 07:30] simvastatin 20 mg PO QHS 06/27/17 [History Last Taken Unknown] albuterol sulfate 2.5 mg INHALATION Q2H PRN 06/22/21 [History Last Taken Unknown] apixaban [Eliquis] 2.5 mg PO BID 06/22/21 [History Last Taken Unknown] dexamethasone 6 mg PO DAILY 06/22/21 [History Last Taken Unknown] diltiazem HCl 180 mg PO DAILY 06/22/21 [History Last Taken Unknown] fluoxetine [Prozac] 20 mg PO DAILY 06/22/21 [History Last Taken Unknown] lisinopril 40 mg PO DAILY 06/22/21 [History Last Taken Unknown] melatonin 3 mg PO QHS 06/22/21 [History Last Taken Unknown] ergocalciferol (vitamin D2) 1,250 mcg PO QWEEK 06/23/21 [History Last Taken Unknown] Allergy/AdvReac Type Severity Reaction Status Date / Time Iodinated Contrast Media Allergy Hives Verified 06/22/21 22:55 [Iodinated Contrast- Oral and IV Dye] Family History (Updated 06/23/21 @ 04:[address] Sheridan Sheridan MD) Mother Heart disease Father Heart disease Surgical History Hx of appendectomy Hx of arteriovenostomy for renal dialysis Hx of cholecystectomy Hx of shoulder surgery Social History (Updated 06/23/21 @ 04:[address] Sheridan Sheridan MD) housing: halfway Smoking Status: Former smoker second hand exposure: No alcohol intake: never substance use type: does not use caffeine: Yes what type of physical activity do you participate in: none seatbelt use: always ROS Review of Systems ROS Unobtainable: other Constitutional Constitutional: Denies fatigue, fever(s), poor appetite, weight gain or weight loss ENT HEENT: Denies mouth lesions Cardiovascular Cardiovascular: Denies abdominal bloating, abdominal edema or abdominal pain Respiratory/Chest Respiratory/Chest: Denies change in mental status, change in phlegm color, chest congestion or chest tightness Gastrointestinal Gastrointestinal: Denies belching, bloating, change in bowel habits, change in stool character, chewing difficulty, coffee ground emesis, constipation, cramping, diarrhea, dyspepsia, dysphagia, early satiety, excessive flatus, fecal incontinence, heartburn, hematemesis, hematochezia, hemorrhoids, loose stools, melena, nausea, odynophagia, rectal bleeding, tenesmus, vomiting or weight changes Genitourinary Genitourinary: Denies abdominal discomfort, burning urination or itching Musculoskeletal Musculoskeletal: Reports as per HPI; Denies muscle weakness or myalgias Integumentary Integumentary: Denies jaundice Neurologic Neurologic: Denies lack of coordination or weakness Psychiatric Psychiatric: Denies confusion, depression, memory loss, mood swings, paranoia or suicidal ideation Endocrine Endocrinology: Denies systems reviewed and no addt'l complaints, except as documented Hematologic/Lymphatic Hematologic/Lymphatic: Denies anemia, easy bleeding, easy bruising or lymphadenopathy Allergic/Immunologic Allergic/Immunologic: Denies systems reviewed and no addt'l complaints, except as documented Physical Exam Const alert General Appearance: cooperative Orientation / Consciousness: oriented to person HEENT hearing grossly normal bilaterally Head and Scalp: normal to inspection Face and Sinus: face symmetric Nose: external nose normal Mouth: oral and palatal mucosa normal Eyes conjunctivae normal General Eye: normal appearance of both eyes Neck full ROM General: normal visual inspection Lymph Lymphatic: no lymphadenopathy noted Chest inspection of chest normal and palpation of chest normal Chest: symmetrical chest wall rise Resp normal respiratory effort Effort and Inspection: able to speak in complete sentences Cardio regular rate GI non-distended Percussion: normal to percussion Rectal Exam: deferred Neuro Speech: speech normal Gait (Neuro): normal gait Lab / Micro Data Result Diagrams: 06/23/21 05:00 06/23/21 05:00 Labs: Laboratory Results - last 24 hr 06/22/21 22:34: WBC 11.6 H, RBC 2.47 L, Hgb 6.8 L, Hct 20.4 L, MCV 82.6, MCH 27.5, MCHC 33.3, RDW Std Deviation 49.6 H, RDW Coeff of Rose 16.3 H, Plt Count 137 L, MPV 11.2, Immature Gran % (Auto) 0.900, Neut % (Auto) 91.1 H, Lymph % (Auto) 3.2 L, [place] % (Auto) 4.4, Eos % (Auto) 0.3, Baso % (Auto) 0.1, Absolute Neuts (auto) 10.5 H, Absolute Lymphs (auto) 0.37 L, Nucleated RBC % 0, Hypochromasia 1+, Anisocytosis 1+, Acanthocytes (Spur) RARE 06/22/21 22:34: PT 16.7 H, INR 1.4, APTT 42.2 H 06/22/21 22:34: Sodium 134 L, Potassium 4.2, Chloride 93 L, Carbon Dioxide 33.0 H, Anion Gap 8, BUN 88 H, Creatinine 5.13 H, Estim Creat Clear Calc 13.21, Est GFR (MDRD) Af Amer 14 L, Est GFR (MDRD) Non-Af 12 L, BUN/Creatinine Ratio 17.2, Glucose 266 H, Calcium 6.9 L, Total Bilirubin 0.40, AST 8 L, ALT 7 L, Alkaline Phosphatase 69, Troponin I High Sens 7, Total Protein 4.3 L, Albumin 1.0 L, Globulin 3.3, Albumin/Globulin Ratio 0.3 L, Lipase 34 L 06/22/21 23:35: Blood Type O POSITIVE, Antibody Screen NEGATIVE, Crossmatch See Detail 06/22/21 23:35: Crossmatch See Detail 06/23/21 05:00: Procalcitonin 0.97 H 06/23/21 05:00: WBC 14.3 H, RBC 2.36 L, Hgb 6.7 L, Hct 19.7 L, MCV 83.5, MCH 28.4, MCHC 34.0, RDW Std Deviation 51.0 H, RDW Coeff of Rose 16.7 H, Plt Count 139 L, MPV 9.5, Immature Gran % (Auto) 0.900, Neut % (Auto) 91.7 H, Lymph % (Auto) 3.8 L, [place] % (Auto) 3.3, Eos % (Auto) 0.1, Baso % (Auto) 0.2, Absolute Neuts (auto) 13.1 H, Absolute Lymphs (auto) 0.55 L, Nucleated RBC % 0, Anisocytosis 1+ 06/23/21 05:00: Sodium 134 L, Potassium 4.2, Chloride 94 L, Carbon Dioxide 31.0, Anion Gap 9, BUN 95 H, Creatinine 5.20 H, Estim Creat Clear Calc 12.72, Est GFR (MDRD) Af Amer 14 L, Est GFR (MDRD) Non-Af 12 L, BUN/Creatinine Ratio 18.3, Glucose 274 H, Calcium 6.8 L, Total Bilirubin 0.40, AST 7 L, ALT 8 L, Alkaline Phosphatase 66, Total Protein 4.1 L, Albumin 0.9 L, Globulin 3.2, Albumin/Globulin Ratio 0.3 L 06/23/21 05:00: Phosphorus 1.9 L 06/23/21 06:50: POC Glucose 279 H 06/23/21 12:34: POC Glucose 289 H 06/23/21 : Phosphorus 1.1 L*, Magnesium 1.7 Micro: Microbiology 06/23/21 04:40 Mucosa - Nose Respiratory Panel (PCR) - Final Radiology Impression Chest X-Ray 06/23/21 03:00 IMPRESSION: Right IJ central catheter terminates over the superior cavoatrial junction. Multifocal pneumonia versus pulmonary edema. Electronically Signed: Lloyd Samuel MD at 4:47 EDT Tel , Service support , Echocardiogram 06/23/21 04:48 Interpretation Summary The estimated ejection fraction is 60 %. Unable to assess diastolic dysfunction. The left atrium is mildly enlarged. Trivial mitral valve insufficiency. Aortic sclerosis, no stenosis. Ordering Physician: Sheridan Sheridan Referring Physician: Lloyd Bernal Performed By: Berna Barry RDCS Assessment & Plan Assessment/Plan (1) Gastrointestinal bleeding: QUALIFIERS: GI bleed type/associated pathology: unspecified gastrointestinal hemorrhage type Qualified Code(s): K92.2 - Gastrointestinal hemorrhage, unspecified PLAN: The differential diagnosis for GI bleed in this patient would be peptic ulcer disease secondary to NSAIDs. Serena-Walker tear, peptic ulcer disease. H. pylori associated disease. (2) Hemorrhagic shock: PLAN: Patient will remain on present therapy. His hemoglobin is 6. Will transfuse 1 unit packed red blood cells. He will need to undergo emergent endoscopy. Charges/Coding Visit Charges Inpatient E&M: 42559 Init Hosp L2
[2021-06-23 07:01] LABS: Bedside Glucose 279 mg/dL (70-110)
[2021-06-23] MEDS: 0.9 % NaCl (Sterile) Posiflush 10 mL IV (10:30)
[2021-06-23] MEDS: CHLORHEXIDINE GLUC 2% CLOTH 1 EACH TOWELETTE TOPICAL (10:30)
--- NOTE | 2021-06-23 11:53 | NURSING ---
Updated via phone.
--- NOTE | 2021-06-23 12:00 | WOUNDNOTE ---
wound photo: sacrum
--- NOTE | 2021-06-23 12:17 | CASEMGMT ---
Addendum entered by Maxine Davis 06/23/21 13:57: Updates faxed to [facility]. CASSI Carmen Original Note: SW participated in ICU rounds. SW called , confirmed plan is for pt to return to [facility] at discharge. states pt has been there about 2 weeks, and their ultimate goal is to get pt back home. SW called [facility] and also confirmed w/Kylah at [facility] that pt came in from [facility] and can return. SW will fax updates once the internet/faSwypeShieldg capabilities have been restored. SW will continue to follow. CASSI Carmen
--- NOTE | 2021-06-23 13:41 | PCM.CONS.R ---
Documented by User: DONNA Espino 06/23/21 14:15 Assessment & Plan Assessment/Plan (1) Hemorrhagic shock: (2) ESRD (end stage renal disease): (3) A-fib: (4) COVID-19: PLAN: At this time there is no acute indication for SKEIN INSPECTOR. No overt fluid overload noted and potassium and acid/bace acceptable. CXR reviewed. He is to receive 2 units PRBC today. We will give AYANNA with HD and adjust as needed. Likely plan for dialysis tomorrow. Patient is hypotensive, on levophed. He is also on IV fluids. Patient is essentially anuric and recommend cautious rate of IVF. ECHO: EF 60%, normal LV size. GI has been consulted, patient is going for EGD later today. He is on PPI gtt. Blood cultures pending, he is on IV antibiotics. Further orders forthcoming as hospitalization evolves. Thank you for allowing up to participate in the care of Mr. Mahoney. Please contact as needed. HPI Consult Data Date of Consult: 06/23/21 HPI Narrative HPI Narrative: VALENTINA MAHONEY, is a 70 M with past medical history significant for HTN, AFib, DM type 2, ESRD from diabetic nephropathy (on HD since at least 2018) who has been dialyzing at [facility] [place] on a Sunday schedule under the direction of Dr. Edwards who unfortunately was recently diagnosed with COVID-19 infection (at [facility]). Last week patient was accepted to [facility] for therapy/rehab and had been dialyzing isolation due to recent Covid + infection. His dialysis is arranged at [facility], on a MWF schedule. He was brought to the emergency room last evening as [facility] staff noted patient to have bright red rectal bleeding and hematemesis. Patient last dialyzed 06/22 with only 500ml UF due to low Bps. His hemoglobin was 11 on June 17. Patient is alert to self, having difficult time recalling recent events. He complains of dry mouth. Patient was admitted to ICU for acute hemorrhagic shock. Hemoglobin in the emergency room was 6.8. Patient did receive 1 unit PRBC, started on IV fluids and IV PPI. Patient noted to be in A. fib with RVR started on amiodarone drip. [facility] Medical History (Updated 06/23/21 @ 13:58 by DONNA Espino) A-fib CKD (chronic kidney disease) Diabetes type 2, controlled Diabetic nephropathy Diabetic retinopathy Gout Hyperlipemia Hypertension Irregular heart beat Nephrolithiasis Home Medications doxazosin 2 mg PO QHS 06/27/17 [History Last Taken Unknown] metoprolol succinate 50 mg PO DAILY 06/27/17 [History Last Taken 07/04/17 07:30] simvastatin 20 mg PO QHS 06/27/17 [History Last Taken Unknown] albuterol sulfate 2.5 mg INHALATION Q2H PRN 06/22/21 [History Last Taken Unknown] apixaban [Eliquis] 2.5 mg PO BID 06/22/21 [History Last Taken Unknown] dexamethasone 6 mg PO DAILY 06/22/21 [History Last Taken Unknown] diltiazem HCl 180 mg PO DAILY 06/22/21 [History Last Taken Unknown] fluoxetine [Prozac] 20 mg PO DAILY 06/22/21 [History Last Taken Unknown] lisinopril 40 mg PO DAILY 06/22/21 [History Last Taken Unknown] melatonin 3 mg PO QHS 06/22/21 [History Last Taken Unknown] ergocalciferol (vitamin D2) 1,250 mcg PO QWEEK 06/23/21 [History Last Taken Unknown] Allergy/AdvReac Type Severity Reaction Status Date / Time Iodinated Contrast Media Allergy Hives Verified 06/22/21 22:55 [Iodinated Contrast- Oral and IV Dye] Family History (Updated 06/23/21 @ 04:[address] Sheridan Sheridan MD) Mother Heart disease Father Heart disease Surgical History Hx of appendectomy Hx of arteriovenostomy for renal dialysis Hx of cholecystectomy Hx of shoulder surgery Social History (Updated 06/23/21 @ 04:[address] Sheridan Sheridan MD) housing: [facility] Smoking Status: Former smoker second hand exposure: No alcohol intake: never substance use type: does not use caffeine: Yes what type of physical activity do you participate in: none seatbelt use: always Physical Exam Narrative NAD Head is normocephalic atraumatic, pupils equal round reactive to light accommodation, oral mucosa dry, lips dry Respiratory: Lung sounds clear anteriorly, diminished breath sounds bases. No rales S1-S2, rhythm irregular, rate controlled. No lower extremity edema noted Left forearm AV fistula positive thrill and bruit Lab / Micro Data Result Diagrams: 06/23/21 05:00 06/23/21 05:00 Labs: Laboratory Results - last 24 hr 06/22/21 22:34: WBC 11.6 H, RBC 2.47 L, Hgb 6.8 L, Hct 20.4 L, MCV 82.6, MCH 27.5, MCHC 33.3, RDW Std Deviation 49.6 H, RDW Coeff of Rose 16.3 H, Plt Count 137 L, MPV 11.2, Immature Gran % (Auto) 0.900, Neut % (Auto) 91.1 H, Lymph % (Auto) 3.2 L, Mathews % (Auto) 4.4, Eos % (Auto) 0.3, Baso % (Auto) 0.1, Absolute Neuts (auto) 10.5 H, Absolute Lymphs (auto) 0.37 L, Nucleated RBC % 0, Hypochromasia 1+, Anisocytosis 1+, Acanthocytes (Spur) RARE 06/22/21 22:34: PT 16.7 H, INR 1.4, APTT 42.2 H 06/22/21 22:34: Sodium 134 L, Potassium 4.2, Chloride 93 L, Carbon Dioxide 33.0 H, Anion Gap 8, BUN 88 H, Creatinine 5.13 H, Estim Creat Clear Calc 13.21, Est GFR (MDRD) Af Amer 14 L, Est GFR (MDRD) Non-Af 12 L, BUN/Creatinine Ratio 17.2, Glucose 266 H, Calcium 6.9 L, Total Bilirubin 0.40, AST 8 L, ALT 7 L, Alkaline Phosphatase 69, Troponin I High Sens 7, Total Protein 4.3 L, Albumin 1.0 L, Globulin 3.3, Albumin/Globulin Ratio 0.3 L, Lipase 34 L 06/22/21 23:35: Blood Type O POSITIVE, Antibody Screen NEGATIVE, Crossmatch See Detail 06/23/21 05:00: Procalcitonin 0.97 H 06/23/21 05:00: WBC 14.3 H, RBC 2.36 L, Hgb 6.7 L, Hct 19.7 L, MCV 83.5, MCH 28.4, MCHC 34.0, RDW Std Deviation 51.0 H, RDW Coeff of Rose 16.7 H, Plt Count 139 L, MPV 9.5, Immature Gran % (Auto) 0.900, Neut % (Auto) 91.7 H, Lymph % (Auto) 3.8 L, Mathews % (Auto) 3.3, Eos % (Auto) 0.1, Baso % (Auto) 0.2, Absolute Neuts (auto) 13.1 H, Absolute Lymphs (auto) 0.55 L, Nucleated RBC % 0, Anisocytosis 1+ 06/23/21 05:00: Sodium 134 L, Potassium 4.2, Chloride 94 L, Carbon Dioxide 31.0, Anion Gap 9, BUN 95 H, Creatinine 5.20 H, Estim Creat Clear Calc 12.72, Est GFR (MDRD) Af Amer 14 L, Est GFR (MDRD) Non-Af 12 L, BUN/Creatinine Ratio 18.3, Glucose 274 H, Calcium 6.8 L, Total Bilirubin 0.40, AST 7 L, ALT 8 L, Alkaline Phosphatase 66, Total Protein 4.1 L, Albumin 0.9 L, Globulin 3.2, Albumin/Globulin Ratio 0.3 L 06/23/21 05:00: Phosphorus 1.9 L 06/23/21 06:50: POC Glucose 279 H 06/23/21 : Phosphorus 1.1 L*, Magnesium 1.7 Micro: Microbiology 06/23/21 04:40 Mucosa - Nose Respiratory Panel (PCR) - Final Radiology Impression Chest X-Ray 06/23/21 03:00 IMPRESSION: Right IJ central catheter terminates over the superior cavoatrial junction. Multifocal pneumonia versus pulmonary edema. Electronically Signed: Lloyd Saumel MD at 4:47 EDT Tel , Service support , Echocardiogram 06/23/21 04:48 Interpretation Summary The estimated ejection fraction is 60 %. Unable to assess diastolic dysfunction. The left atrium is mildly enlarged. Trivial mitral valve insufficiency. Aortic sclerosis, no stenosis. Ordering Physician: Sheridan Sheridan Referring Physician: Lloyd Bernal Performed By: Berna Barry RDCS Documented by User: Dr. Josep Duenas MD 06/23/21 18:18 HPI Consult Data Date of Consult: 06/23/21 [facility] Medical History (Updated 06/23/21 @ 13:58 by Sarah Diane NP-Julia) A-fib CKD (chronic kidney disease) Diabetes type 2, controlled Diabetic nephropathy Diabetic retinopathy Gout Hyperlipemia Hypertension Irregular heart beat Nephrolithiasis Home Medications doxazosin 2 mg PO QHS 06/27/17 [History Last Taken Unknown] metoprolol succinate 50 mg PO DAILY 06/27/17 [History Last Taken 07/04/17 07:30] simvastatin 20 mg PO QHS 06/27/17 [History Last Taken Unknown] albuterol sulfate 2.5 mg INHALATION Q2H PRN 06/22/21 [History Last Taken Unknown] apixaban [Eliquis] 2.5 mg PO BID 06/22/21 [History Last Taken Unknown] dexamethasone 6 mg PO DAILY 06/22/21 [History Last Taken Unknown] diltiazem HCl 180 mg PO DAILY 06/22/21 [History Last Taken Unknown] fluoxetine [Prozac] 20 mg PO DAILY 06/22/21 [History Last Taken Unknown] lisinopril 40 mg PO DAILY 06/22/21 [History Last Taken Unknown] melatonin 3 mg PO QHS 06/22/21 [History Last Taken Unknown] ergocalciferol (vitamin D2) 1,250 mcg PO QWEEK 06/23/21 [History Last Taken Unknown] Allergy/AdvReac Type Severity Reaction Status Date / Time Iodinated Contrast Media Allergy Hives Verified 06/22/21 22:55 [Iodinated Contrast- Oral and IV Dye] Family History (Updated 06/23/21 @ 04:[address] Sheridan Sheridan MD) Mother Heart disease Father Heart disease Surgical History Hx of appendectomy Hx of arteriovenostomy for renal dialysis Hx of cholecystectomy Hx of shoulder surgery Social History (Updated 06/23/21 @ 04:[address] Sheridan Sheridan MD) housing: [facility] Smoking Status: Former smoker second hand exposure: No alcohol intake: never substance use type: does not use caffeine: Yes what type of physical activity do you participate in: none seatbelt use: always Lab / Micro Data Result Diagrams: 06/23/21 05:00 06/23/21 05:00
--- NOTE | 2021-06-23 16:00 | EGD_PTH ---
PATIENT: VALENTINA MAHONEY LOC: [facility] U#:[id number] AGE/SX: 70/M ROOM: [facility] RE06/23/[address]: Dr. Janusz Peralta MD : 1950 BED: 1 DIS: 06/30/2021 SPEC #: [id number] RECD: 06/23/21 18:36 STATUS: TRU MARLOW #: [id number] KENYATTA: 06/23/21 16:[address]: Hermes Interiano DEPT: SURGICAL PATHOLOGY RECD BY: Shayla Long ENTERED: 06/24/21 08:54 SP TYPE: EGD BIOPSY OTHR DR: MD Dr. Sheridan Parry MD Dr. Derek Brown, DO Dr. Nicholas F Kotsonis, MD Dr. Paul Nielsen, MD Tissues: ULCER Procedures: Surgery Specimen Level IV Comments: @ Ordering doctor for SUIV edited from to @ by RGORICKY at 06/24/21 142 @ Submitting doctor edited from to @ by RGOOD at 06/24/21 1428 HEADER OPERATION: [place] [place] PRE-[place] DIAGNOSIS: GI bleed TISSUE SUBMITTED: 2.1 cm crater ulcer at incisura MICROSCOPIC DIAGNOSIS Gastric biopsy, ulcer at incisura: Fragments of gastric mucosa with extensive ulceration and associated acute inflammation. Negative for malignancy. See comment. MARIA DE JESUS:cj 06/27/2021 COMMENT The results of immunohistochemistry for Helicobacter pylori will be reported separately ([id number]). The results are reported to Ms. Abel, ICU nurse, on 06/27/2021. Correlation with clinical, endoscopic findings and appropriate follow up are necessary. MICROSCOPIC DESCRIPTION Slides are reviewed. GROSS DESCRIPTION Received in fixative is one container labeled with the patient's name and designated 2.1 cm crater ulcer at incisura. The specimen consists of multiple irregular fragments of light leggett soft tissue that in aggregate measure 1 x 0.6 x 0.1 cm. The specimen is totally submitted in one cassette. / MARIA DE JESUS:cj 06/24/21 TC:2 CPT: 78541
[2021-06-23 16:31] LABS: Bedside Glucose 289 mg/dL (70-110)
[2021-06-23] MEDS: 0.9% Normal Saline (Pres. free 10 ML Vial ×2 (17:30→17:35)
[2021-06-23] MEDS: Epinephrine (1 mg/ml) 1 MG/ML VIAL ×2 (17:30→17:35)
[2021-06-23 19:00] LABS: Bedside Glucose 267 mg/dL (70-110)
[2021-06-23] MEDS: 0.9% Saline Lock 10 ML Syringe IV (21:54)
[2021-06-23 22:10] LABS: Hematocrit 22.6 % (40-54); Hemoglobin 7.8 g/dL (13.0-16.5)
[2021-06-24] VITALS (80 sets, daily range): BP systolic 63–127; BP diastolic 30–88; PULSE 110–159; RESP 13–26; TEMP 35.8–37.1; O2SAT 90–100
[2021-06-24] MEDS: Insulin Lispro 100 UNIT/ML INSULN.PEN SC ×4 (00:35→23:41)
[2021-06-24 01:01] LABS: Bedside Glucose 251 mg/dL (70-110)
[2021-06-24 04:59] LABS: Absolute Lymphocyte Count 1.09 X10^3/uL (0.83-4.51); Absolute Neutrophil Count 9.8 X10^3/uL (2.0-7.7); Basophil# 0.04 X10^3/uL; Basophil% 0.3 % (0-1); Eosinophil# 0.26 X10^3/uL; Eosinophils% 2.2 % (0-5); Hematocrit 19.6 % (40-54); Hemoglobin 6.8 g/dL (13.0-16.5); Lymphocyte # 1.09 X10^3/ul (0.83-4.51); Lymphocyte % 9.2 % (19-41); Mean Corp Hgb Conc 34.7 g/dL (32-36); Mean Corpuscular Hgb 29.1 pg (27.0-32.0); Mean Corpuscular Volume 83.8 fL (80-94); NRBC Flagged by Analyzer 0 % (0-5); Neutrophil # 9.84 X10^3/uL (2.7-7.7); Neutrophil % 82.6 % (47-70); Platelet Count 147 K/mm3 (150-450); RBC Distribution Width CV 15.8 % (11.6-14.6); RBC Distribution Width SD 47.8 fl (35.1-43.9); Red Blood Count 2.34 M/mm3 (4.6-6.2); White Blood Count 11.9 K/mm3 (4.4-11.0)
[2021-06-24 05:35] LABS: Anion Gap 9 (5-15); BUN 131 mg/dL (7-18); BUN/Creat Ratio 23.3 RATIO (10-20); Calcium,Total 6.5 mg/dL (8.5-10.1); Chloride 99 mmol/L (98-107); Creatinine, Serum 5.62 mg/dL (0.70-1.30); EST Glomerular Filtration Rate 11 mL/min (>60); Est Glom Filt Rate - Afr Amer 13 mL/min (>60); Estimated Creatinine Clearance 11.77 ml/min; Glucose 191 mg/dL (74-106); Potassium 4.1 mmol/L (3.5-5.1); Sodium Level 136 mmol/L (136-145)
--- NOTE | 2021-06-24 05:43 | PCM.PN.INT ---
Assessment & Plan Assessment/Plan (1) Hemorrhagic shock: PLAN: RECOMMENDATIONS: 1. Transfuse additional 2 units of packed red blood cells this morning. Check H&H posttransfusion. 2. Continue PPI therapy twice daily. 3. Continue Levophed to maintain a mean arterial pressure at or above 65 mmHg. 4. Continue empiric antimicrobials for now. 5. Schedule dialysis support per nephrology recommendations. 6. Await additional recommendations from GI. IMPRESSIONS: 1. Hemorrhagic shock The patient presented with acute blood loss anemia, with a drop in hemoglobin from 12 on June 15 to a hemoglobin of 6.8 on presentation. The patient had been on systemic anticoagulation with Eliquis. He did receive Kcentra and vitamin K. The patient was also started on PPI therapy. To date, he has received 3 unit of packed red blood cells. The patient was scoped by GI. However, the procedure report is not currently available. Given that the patient continues to have a hemoglobin less than 7 g/dL, will transfuse an additional 2 units of packed red blood cells this morning. The patient will remain on Levophed for hemodynamic stability. 2. Recent diagnosis of COVID-19/residual bilateral infiltrates on chest imaging It is unclear whether the patient's chest imaging study demonstrates an acute process versus residual findings from his prior Covid infection. I do not have any outside chest imaging studies to be able to compare to. For now, it is reasonable to continue empiric antimicrobials for now. 3. Paroxysmal atrial fibrillation with RVR Initial troponin was unremarkable. Echocardiogram revealed intact systolic function. Plan to continue amiodarone for now. 4. End-stage renal disease on hemodialysis Continue hemodialysis support per nephrology recommendations. 5. Diabetes mellitus/hypertension/hyperlipidemia/anxiety/depression Complicates care, management, recovery and prognosis. Continue to hold home antihypertensives for now. TIME: 33 minutes of critical care time, independent of procedures, was spent addressing the patient's hemorrhagic shock, bilateral infiltrates on chest imaging, paroxysmal atrial fibrillation with RVR, end-stage renal disease, review of all data and collaboration with the care team. ([id number]) Subjective Subjective The patient was seen and examined at the bedside this morning. Events from the last 24 hours have been reviewed. The patient is currently afebrile, but remains tachycardic and tachypneic. The patient remains on Levophed at 10 mcg/min to maintain hemodynamic stability. The patient's amiodarone infusion has completed. The patient did undergo upper endoscopy yesterday (report is still pending.). The patient has been transfused a total of 3 units of packed red blood cells, to date. Hemoglobin is down to 6.8 g/dL this morning. Platelet count is low to 147,000. BUN and creatinine are elevated. However, the patient is due for dialysis today. The patient is currently documented to be overall net +4.8 L for the hospitalization. Objective Data Objective Data The patient's most recent lab work, culture data and imaging studies have all been personally reviewed. Surface echocardiogram revealed normal LV size and function with an ejection fraction of 60%. Respiratory viral panel was negative. Blood cultures are pending. Vital Signs: Vital Signs Temp Pulse Resp BP Pulse Ox 97.1 F L 129 H 23 H 121/49 H 99 06/24/21 00:00 06/24/21 02:00 06/24/21 02:00 06/24/21 02:00 06/24/21 02:00 Oxygen Flow Rate (L/min) 1 Oxygen Delivery Method Nasal Cannula Weight: 69 kg Body Mass Index (BMI) 22.4 Intake & Output: Intake and Output for Last 24 Hours 06/22/21 06/23/21 06/24/21 23:59 23:59 23:59 Intake Total 4626.76 / 4645.56 260.88 / 260.88 Output Total 0 / 0 Balance 4626.76 / 4645.56 260.88 / 260.88 Lab / Micro Data Attestation: I reviewed the patient's lab results. Result Diagrams: 06/24/21 04:55 06/24/21 04:55 Labs: Laboratory Results - last 24 hr 06/22/21 23:35: Crossmatch See Detail 06/22/21 23:35: Crossmatch See Detail 06/23/21 05:00: Phosphorus 1.9 L 06/23/21 06:50: POC Glucose 279 H 06/23/21 12:34: POC Glucose 289 H 06/23/21 18:46: POC Glucose 267 H 06/23/21 22:00: Hgb 7.8 L, Hct 22.6 L 06/24/21 00:34: POC Glucose 251 H 06/24/21 04:55: WBC 11.9 H, RBC 2.34 L, Hgb 6.8 L, Hct 19.6 L, MCV 83.8, MCH 29.1, MCHC 34.7, RDW Std Deviation 47.8 H, RDW Coeff of Rose 15.8 H, Plt Count 147 L, MPV 9.0, Immature Gran % (Auto) 0.700, Neut % (Auto) 82.6 H, Lymph % (Auto) 9.2 L, Alexander % (Auto) 5.0, Eos % (Auto) 2.2, Baso % (Auto) 0.3, Absolute Neuts (auto) 9.8 H, Absolute Lymphs (auto) 1.09, Nucleated RBC % 0 06/24/21 04:55: Sodium 136, Potassium 4.1, Chloride 99, Carbon Dioxide 28.0, Anion Gap 9, BUN 131 H*, Creatinine 5.62 H, Estim Creat Clear Calc 11.77, Est GFR (MDRD) Af Amer 13 L, Est GFR (MDRD) Non-Af 11 L, BUN/Creatinine Ratio 23.3 H, Glucose 191 H, Calcium 6.5 L* Micro: Microbiology 06/23/21 04:40 Mucosa - Nose Respiratory Panel (PCR) - Final Radiography Diagnostic Testing: Radiology Impression Echocardiogram 06/23/21 04:48 Interpretation Summary The estimated ejection fraction is 60 %. Unable to assess diastolic dysfunction. The left atrium is mildly enlarged. Trivial mitral valve insufficiency. Aortic sclerosis, no stenosis. Ordering Physician: Sheridan Sheridan Referring Physician: Lloyd Bernal Performed By: Berna Barry RDCS Physical Exam Const no apparent distress and healthy appearing Constitutional Narrative: Unkempt in appearance. Appears older than stated age. General Appearance: lethargic HEENT normocephalic and head/scalp atraumatic Eyes PERRL Neck supple General: trachea midline Chest inspection of chest normal Resp Auscultation: diminished lung sounds; Negative for rales, rhonchi or wheezes Cardio S1 normal heart sound and S2 normal heart sound Rhythm: abnormal rhythm GI normal to inspection, nondistended, normoactive bowel sounds Extremity no clubbing, cyanosis or edema Neuro no focal motor deficits Psych Mood & Affect: flat affect Charges/Coding Procedures Hospitalists Procedures: 55518 Critial Care 1st Hr
[2021-06-24 06:41] LABS: Bedside Glucose 179 mg/dL (70-110)
[2021-06-24] MEDS: TITRATION PARAMETER CHANGE 1 EACH IV ×2 (06:54)
--- NOTE | 2021-06-24 09:35 | PN.HOSP_ITS ---
Subjective Subjective No issues overnight, remains hemodynamically stable on pressor support. He was transfused 3 units overall and his hemoglobin is still back down to 6.8 Objective Data Objective Data Vital Signs: Vital Signs Temp Pulse Resp BP Pulse Ox 98.7 F 130 H 25 H 107/69 95 06/24/21 04:00 06/24/21 06:00 06/24/21 06:00 06/24/21 06:00 06/24/21 06:55 Oxygen Flow Rate (L/min) 0 Oxygen Delivery Method Room Air Weight: 158 lb 15.253 oz Body Mass Index (BMI) 22.4 Intake & Output: Intake and Output for Last 24 Hours 06/23/21 06/24/21 06/25/21 03:59 03:59 03:59 Intake Total 1435 / 1435 3316.96 / 3335.76 285.98 / 285.98 Output Total 0 / 0 0 / 0 Balance 1435 / 1435 3316.96 / 3335.76 285.98 / 285.98 Lab / Micro Data Result Diagrams: 06/24/21 04:55 06/24/21 04:55 Labs: Laboratory Results - last 24 hr 06/22/21 23:35: Crossmatch See Detail 06/22/21 23:35: Crossmatch See Detail 06/22/21 23:35: Crossmatch See Detail 06/23/21 12:34: POC Glucose 289 H 06/23/21 18:46: POC Glucose 267 H 06/23/21 22:00: Hgb 7.8 L, Hct 22.6 L 06/24/21 00:34: POC Glucose 251 H 06/24/21 04:55: WBC 11.9 H, RBC 2.34 L, Hgb 6.8 L, Hct 19.6 L, MCV 83.8, MCH 29.1, MCHC 34.7, RDW Std Deviation 47.8 H, RDW Coeff of Rose 15.8 H, Plt Count 147 L, MPV 9.0, Immature Gran % (Auto) 0.700, Neut % (Auto) 82.6 H, Lymph % (Auto) 9.2 L, [place] % (Auto) 5.0, Eos % (Auto) 2.2, Baso % (Auto) 0.3, Absolute Neuts (auto) 9.8 H, Absolute Lymphs (auto) 1.09, Nucleated RBC % 0 06/24/21 04:55: Sodium 136, Potassium 4.1, Chloride 99, Carbon Dioxide 28.0, Anion Gap 9, BUN 131 H*, Creatinine 5.62 H, Estim Creat Clear Calc 11.77, Est GFR (MDRD) Af Amer 13 L, Est GFR (MDRD) Non-Af 11 L, BUN/Creatinine Ratio 23.3 H , Glucose 191 H, Calcium 6.5 L* 06/24/21 06:30: POC Glucose 179 H Micro: Microbiology 06/23/21 04:40 Mucosa - Nose Respiratory Panel (PCR) - Final Radiography Diagnostic Testing: Radiology Impression Echocardiogram 06/23/21 04:48 Interpretation Summary The estimated ejection fraction is 60 %. Unable to assess diastolic dysfunction. The left atrium is mildly enlarged. Trivial mitral valve insufficiency. Aortic sclerosis, no stenosis. Ordering Physician: Sheridan Sheridan Referring Physician: Lloyd Bernal Performed By: Berna Barry GORDY Physical Exam Const no apparent distress General Appearance: cooperative Orientation / Consciousness: lethargic HEENT normocephalic and moist oral mucous membranes Eyes PERRL, EOMs intact bilaterally and conjunctivae normal Neck supple and no JVD Resp normal respiratory effort, no retractions, no use of accessory muscles and clear to auscultation bilaterally Auscultation: Negative for crackles, rales, rhonchi or wheezes Cardio regular rate, regular rhythm, S1 normal heart sound, S2 normal heart sound and no murmurs GI soft to palpation, non-tender and non-distended; Negative for hepatosplenomegaly Extremity no clubbing, cyanosis or edema Skin no rashes or lesions noted Neuro no focal motor deficits and no sensory deficits noted Psych Appearance: appropriate Mood & Affect: flat affect Assessment & Plan Assessment/Plan (1) Hemorrhagic shock: (2) Gastrointestinal bleeding: QUALIFIERS: GI bleed type/associated pathology: unspecified gastrointestinal hemorrhage type Qualified Code(s): K92.2 - Gastrointestinal hemorrhage, unspecified PLAN: 1. Acute Hemorrhagic Shock secondary to Acute GI Bleed and possibly hematuria w/ resultant Acute Blood Loss Anemia on Chronic Anemia/AOCD and Acute Encephalopathy: Will admit to the ICU, continue consultation with g astroenterology and associate product integrity engineer, given currently MAP less than 65 will attempt additional aggressive IV fluid bolus, continue planned total 2 u PRBC administration, continue NEP given MAP < 65, maintain on IVFs, will continue IV PPI, n.p.o. status. Holding patient home Eliquis therapy. -06/24/2021: He was transfused 3 units yesterday and still hemoglobin of 6.8 therefore will receive 2 more units today. Levophed is up to 12 mcg/h 2. Paroxysmal atrial fibrillation with RVR: EKG in ED w/ atrial fibrillation with RVR. Will maintain on telemetry, obtain cardiac enzyme serial set, obtain magnesium level, obtain ECHO, obtain TSH level, holding patient Eliquis given presentation as noted above #1, given blood pressure will initiate amnio bolus and drip with continued close vital sign monitoring. -06/24/2021: Continue with amiodarone with concrement pressor support 3. Pneumonia, Possible Aspiration, Possible GN/GP Organism: CXR in the ED w/ infiltrate, concern for aspiration given current presentation, obtained following central line placement, awaiting final read. Will maintain on oxygen with wean as tolerated to room air, PRN albuterol, maintained on IV Zosyn and Vancomycin w/ pending MRSA screen and de-escalation as able, HOB, IS parameters w/ pending sputum cultures and urine antigens. Bld cx x 2 requested. This may possibly be related to the hypotension in addition to #1. -06/24/2021, will continue with empiric antibiotics for now, blood cultures are pending 4. Diabetes mellitus type II: Hold oral home regimen, continue home insulin regimen, NPO status w/ q 6 hour accu checks w/ ISS. 5. ESRD: Patient with recent dialysis on day prior to current presentation, Sunday, will consult nephrology. 6. Hypertension: Given presentation holding all patient hypertensive regimen, add back once appropriate. 7. Hyperlipidemia: Continue home statin regimen. 8. Anxiety and depression: We will continue patient home fluoxetine regimen. DVT: SCDs Charges/Coding Visit Charges Inpatient E&M: 55046 Subs Hosp L2
--- NOTE | 2021-06-24 10:09 | OP.EGD_ITS ---
Patient Name: Tucker Cartwright Procedure Date: 06/23/2021 5:04 PM Date of : 1950 Age: 70 Procedure: Upper GI endoscopy Indications: Acute post hemorrhagic anemia Providers: Hermes Interiano DO Medicines: Monitored Anesthesia Care Patient Profile: This is a 70 year old male. Refer to note in patient chart for documentation of history and physical. Patient has symptoms. The symptoms first began 01,. Complications: No immediate complications. Procedure: Pre-Anesthesia Assessment: - Prior to the procedure, a History and Physical was performed, and patient medications and allergies were reviewed. The patient is competent. The risks and benefits of the procedure and the sedation options and risks were discussed with the patient. All questions were answered and informed consent was obtained. Patient identification and proposed procedure were verified by the physician in the pre-procedure area. Mental Status Examination: alert and oriented. Respiratory Examination: clear to auscultation. CV Examination: normal. Prophylactic Antibiotics: The patient does not require prophylactic antibiotics. Prior Anticoagulants: The patient has taken no previous anticoagulant or antiplatelet agents. ASA Grade Assessment: II - A patient with mild systemic disease. After reviewing the risks and benefits, the patient was deemed in satisfactory condition to undergo the procedure. The anesthesia plan was to use moderate sedation / analgesia (conscious sedation). Immediately prior to administration of medications, the patient was re-assessed for adequacy to receive sedatives. The heart rate, respiratory rate, oxygen saturations, blood pressure, adequacy of pulmonary ventilation, and response to care were monitored throughout the procedure. The physical status of the patient was re-assessed after the procedure. After obtaining informed consent, the endoscope was passed under direct vision. Throughout the procedure, the patient's blood pressure, pulse, and oxygen saturations were monitored continuously. The Endoscope was introduced through the mouth, and advanced to the second part of duodenum. The upper GI endoscopy was accomplished without difficulty. The patient tolerated the procedure well. Moderate Sedation: Moderate (conscious) sedation was administered by the endoscopy nurse and supervised by the endoscopist. The patient's oxygen saturation, heart rate, blood pressure and response to care were monitored. Total physician intraservice time was 15 minutes. Scope In: 5:18:41 PM Scope Out: 5:48:05 PM Total Procedure Duration Time 0 hours 29 minutes 24 seconds Findings: The examined esophagus was normal. The exam was otherwise without abnormality. Red blood was found in the entire examined stomach. The second portion of the duodenum was normal. LA Grade D (one or more mucosal breaks involving at least 75% of esophageal circumference) esophagitis with no bleeding was found 34 to 35 cm from the incisors. One non-bleeding cratered gastric ulcer with no stigmata of bleeding was found at the incisura. The lesion was 20 mm in largest dimension. Biopsies were taken with a cold forceps for histology. Verification of patient identification for the specimen was done. Estimated blood loss was minimal. Four oozing linear gastric ulcers with a visible vessel were found at the pylorus. The largest lesion was 6 mm in largest dimension. Area was successfully injected with 5 mL of a 1:10,000 solution of epinephrine for drug delivery. Coagulation for hemostasis using heater probe was successful. Estimated blood loss was minimal. Four spurting linear duodenal ulcers with a visible vessel were found in the second portion of the duodenum. The largest lesion was 5 mm in largest dimension. Area was successfully injected with 5 mL of a 1:10,000 solution of epinephrine for hemostasis. Estimated blood loss was minimal. Few oozing cratered duodenal ulcers with adherent clot were found in the duodenal bulb. The largest lesion was 4 mm in largest dimension. Area was successfully injected with 5 mL of a 1:10,000 solution of epinephrine for hemostasis. Estimated blood loss was minimal. Coagulation for hemostasis using heater probe was successful. Estimated blood loss was minimal. Three non-bleeding cratered duodenal ulcers with no stigmata of bleeding were found in the first portion of the duodenum. The largest lesion was 8 mm in largest dimension. Scattered mild inflammation with hemorrhage characterized by congestion (edema), erythema, friability, granularity and linear erosions was found in the duodenal bulb. Coagulation for bleeding prevention using heater probe was successful. Estimated blood loss was minimal. Impression: - Normal esophagus. - The examination was otherwise normal. - Red blood in the entire stomach. - Normal second portion of the duodenum. - No specimens collected. -Large ulcer in the stomach likely secondary to H. pylori and highly suspicious for adenocarcinoma. Recommend to check CEA and await pathology Recommendation: - [facility] the [facility]. - NPO. - Continue present medications. - Await pathology results. - Repeat upper endoscopy in 1 month for surveillance based on pathology results. - Return to GI office in 2 weeks. - Give Protonix (pantoprazole): initiate therapy with 80 mg IV bolus, then 8 mg/hr IV by continuous infusion. Procedure Code(s): --- Professional --- 53023, Esophagogastroduodenoscopy, flexible, transoral; with biopsy, single or multiple G0500, Moderate sedation services provided by the same physician or other qualified health senior resident care director performing a gastrointestinal endoscopic service that sedation supports, requiring the presence of an independent trained observer to assist in the monitoring of the patient's level of consciousness and physiological status; initial 15 minutes of intra-service time; patient age 5 years or older (additional time may be reported with 88045, as appropriate) CPT copyright 2017 [employer]. All rights reserved. The codes documented in this report are preliminary and upon dye beck reel operator review may be revised to meet current compliance requirements. Hermes Interiano DO 06/24/2021 10:08:51 AM This report has been signed electronically. Number of Addenda: 1 Note Initiated On: 06/23/2021 5:04 PM Addendum Number: 1 Addendum Date: 05/04/2022 4:42:42 PM MAC was used instead of moderate sedation for this patient. Hermes Interiano DO 05/04/2022 4:42:46 PM This report has been signed electronically.
--- NOTE | 2021-06-24 10:09 | OP.CCLET_ITS ---
05/04/2022 Lloyd Bernal MD [address] [id number] Re : Upper GI endoscopy procedure for Tucker Cartwright Dear Dr. Bernal This procedure was performed on June. My impressions and recommendations are as follows: Impressions : - Normal esophagus. - The examination was otherwise normal. - Red blood in the entire stomach. - Normal second portion of the duodenum. - No specimens collected. -Large ulcer in the stomach likely secondary to H. pylori and highly suspicious for adenocarcinoma. Recommend to check CEA and await pathology Recommendations : - Ad[facility] the [facility]. - NPO. - Continue present medications. - Await pathology results. - Repeat upper endoscopy in 1 month for surveillance based on pathology results. - Return to GI office in 2 weeks. - Give Protonix (pantoprazole): initiate therapy with 80 mg IV bolus, then 8 mg/hr IV by continuous infusion. My findings are described in the full procedure note, which is enclosed. If I can be of further assistance, please feel free to contact me at . Sincerely, Hermes Interiano DO 06/24/2021 10:08:51 AM This report has been signed electronically.
--- NOTE | 2021-06-24 10:27 | PCM.RX.CS ---
Consult Pharmacy has been consulted to manage selected antiobiotic: Vancomycin Type of Consult: New start Suspected Infection: Pneumonia Prior Doses of Antibiotics Received/Current Regimen: Received 1750mg iv x 1 on 06.23.21. Labs: Sodium 136 mmol/L (136-145) 06/24/21 04:55 Potassium 4.1 mmol/L (3.5-5.1) 06/24/21 04:55 Chloride 99 mmol/L (98-107) 06/24/21 04:55 Carbon Dioxide 28.0 mmol/L (21.0-32.0) 06/24/21 04:55 Anion Gap 9 (5-15) 06/24/21 04:55 BUN 131 mg/dL (7-18) H* 06/24/21 04:55 Creatinine 5.62 mg/dL (0.70-1.30) H 06/24/21 04:55 Est GFR (MDRD) Af Amer 13 mL/min (>60) L 06/24/21 04:55 Est GFR (MDRD) Non-Af 11 mL/min (>60) L 06/24/21 04:55 BUN/Creatinine Ratio 23.3 RATIO (10-20) H 06/24/21 04:55 Glucose 191 mg/dL (74-106) H 06/24/21 04:55 Microbiology: Microbiology 06/23/21 04:40 Mucosa - Nose Respiratory Panel (PCR) - Final Weight used for dosin kg Estimated Creatinine Clearance: 12 ml/min Goal Trough: 15-20 mcg/mL Pharmacy Plan for Drug Dosing: Have ordered 500mg iv x 1 to be given post dialysis today. Random level ordered for Mon 06.27.21 in AM. Pharmacy Service will continue to monitor and adjust dosing as required. Follow-Up Labs: Trough Vancomycin - random level 06.27.21 @0600
--- NOTE | 2021-06-24 11:03 | CASEMGMT ---
As per , pt has healthcare POA papers, and she has a copy at home. SW encouraged to bring to the correction when he returns, and to bring to hospital once pt is out of ICU. states understanding. CASSI Carmen
--- NOTE | 2021-06-24 11:30 | NURSING ---
1 unit PRBC being infused with dialysis
[2021-06-24] MEDS: Lactated Ringers 1,000 ML 999 ML IV (11:51)
--- NOTE | 2021-06-24 12:50 | NURSING ---
1 unit PRBC infusing with dialysis
[2021-06-24 13:10] LABS: Bedside Glucose 145 mg/dL (70-110)
--- NOTE | 2021-06-24 13:59 | CASEMGMT ---
Green sheet placed on chart in event pt would be ready for discharge back to [facility] on the weekend. SW did let Kylah at [facility] know that there is a possibility, though unlikely, pt could return on the weekend. CASSI Carmen
[2021-06-24] MEDS: Sucralfate 1 GM Tablet PO (14:06)
[2021-06-24] MEDS: CHLORHEXIDINE GLUC 2% CLOTH 1 EACH TOWELETTE TOPICAL (14:06)
--- NOTE | 2021-06-24 14:16 | PCM.PN.REN ---
Subjective Subjective Patient resting in bed, just finished his dialysis session. More awake and alert today. Denies any complaints. Objective Data Objective Data Vital Signs: Vital Signs Temp Pulse Resp BP Pulse Ox 97.0 F L 139 H 21 H 123/88 H 99 06/24/21 14:00 06/24/21 14:00 06/24/21 14:00 06/24/21 14:00 06/24/21 14:00 Oxygen Flow Rate (L/min) 1 Oxygen Delivery Method Nasal Cannula Weight: 72.1 kg Body Mass Index (BMI) 22.4 Intake & Output: Intake and Output for Last 24 Hours 06/22/21 06/23/21 06/24/21 23:59 23:59 23:59 Intake Total 4626.76 / 4645.56 2367.19 / 2367.19 Output Total 0 / 0 0 / 0 Balance 4626.76 / 4645.56 2367.19 / 2367.19 Lab / Micro Data Result Diagrams: 06/24/21 04:55 06/24/21 04:55 Labs: Laboratory Results - last 24 hr 06/22/21 23:35: Crossmatch See Detail 06/22/21 23:35: Crossmatch See Detail 06/22/21 23:35: Crossmatch See Detail 06/23/21 12:34: POC Glucose 289 H 06/23/21 18:46: POC Glucose 267 H 06/23/21 22:00: Hgb 7.8 L, Hct 22.6 L 06/24/21 00:34: POC Glucose 251 H 06/24/21 04:55: WBC 11.9 H, RBC 2.34 L, Hgb 6.8 L, Hct 19.6 L, MCV 83.8, MCH 29.1, MCHC 34.7, RDW Std Deviation 47.8 H, RDW Coeff of Rose 15.8 H, Plt Count 147 L, MPV 9.0, Immature Gran % (Auto) 0.700, Neut % (Auto) 82.6 H, Lymph % (Auto) 9.2 L, Ritchie % (Auto) 5.0, Eos % (Auto) 2.2, Baso % (Auto) 0.3, Absolute Neuts (auto) 9.8 H, Absolute Lymphs (auto) 1.09, Nucleated RBC % 0 06/24/21 04:55: Sodium 136, Potassium 4.1, Chloride 99, Carbon Dioxide 28.0, Anion Gap 9, BUN 131 H*, Creatinine 5.62 H, Estim Creat Clear Calc 11.77, Est GFR (MDRD) Af Amer 13 L, Est GFR (MDRD) Non-Af 11 L, BUN/Creatinine Ratio 23.3 H, Glucose 191 H, Calcium 6.5 L* 06/24/21 06:30: POC Glucose 179 H 06/24/21 13:04: POC Glucose 145 H Micro: Microbiology 06/23/21 04:40 Mucosa - Nose Respiratory Panel (PCR) - Final Physical Exam Narrative HEENT; head is normocephalic atraumatic pupils equal reactive light, nasal mucosa moist, lips dry Respiratory; lung sounds clear anteriorly; no rales, rhonchi noted Cardiovascular; S1-S2, rhythm irregular rate 130s -140s Extremities; no pitting edema noted Left forearm AV fistula positive thrill and bruit Assessment & Plan Assessment/Plan (1) ESRD (end stage renal disease): (2) Hemorrhagic shock: (3) A-fib: (4) Pneumonia: PLAN: -Dialysis schedule Sunday. Patient tolerated dialysis today over 3 hours, blood flow rate 350, 3K bath, UF 600 mL. Old EDW was 71 kg. Patient will have a new lowered dry weight by time of discharge. BUN 88 on admission, up to 131 today. Outpatient BUN 40s to 50s. Disproportionately elevated BUN possibly from acute anemia. Patient did not receive steroids. He has not been on any enteral feedings. Likely plan fo next dialysis Sunday. -Hemoglobin 6.8 on admission and again today. Patient received 2 units PRBC on HD today. Total 5 units PRBC since admission. AYANNA 86897 units today. -Blood pressure is low, but has improved since admission, on Levophed drip. ECHO EF 60%, normal LV size. On amiodarone drip. Eliquis on hold. -Presumed aspiration pneumonia. Currently NPO. Blood cultures pending, on Zosyn and Vanco. -On pantoprazole drip. He is NPO. EGD 06/23: Normal esophagus, red blood in the entire stomach, normal second portion of the duodenum, large ulcer in the stomach likely secondary to H. pylori and highly suspicious for adenocarcinoma. Recommend to check CEA and await pathology - low phos, not on binders. Received replacement, will check phos tomorrow.
[2021-06-24 15:20] LABS: Hematocrit 20.6 % (40-54); Hemoglobin 7.2 g/dL (13.0-16.5)
[2021-06-24] MEDS: Epoetin Alfa epbx 10,000 UNITS/ML 20000 UNIT SC (15:32)
--- NOTE | 2021-06-24 17:43 | EKG12_ITS ---
Test Reason : TACHYCARDIA Blood Pressure : / mmHG Vent. Rate : 154 BPM Atrial Rate : 182 BPM P-R Int : 000 ms QRS Dur : 070 ms QT Int : 272 ms P-R-T Axes : 000 058 154 degrees QTc Int : 435 ms Atrial fibrillation Low voltage QRS (Limb Leads) ST & T wave abnormality, consider anterolateral ischemia or digitalis effect Abnormal ECG Confirmed by MICHAEL WALTER, ABIMAEL ([id number]), scientific editor LOAN WILKS ([id number]) on 06/29/2021 9:39:31 AM Referred By: Frances FULLER Confirmed By:ABIMAEL RODRIGUEZ MD
[2021-06-24] MEDS: Vancomycin IV 500 MG/100 ML BAG 100 MG IV (18:10)
[2021-06-24 18:27] LABS: Troponin-I HS 7 pg/mL (3.0-78.0)
[2021-06-24] MEDS: Calcium Gluconate 1 GM/10 ML Vial IV (18:50)
--- NOTE | 2021-06-24 18:56 | NURSING ---
3 etomidate removed from the accudose per Dr. Carver instructions.
[2021-06-24 19:00] LABS: Bedside Glucose 194 mg/dL (70-110)
[2021-06-24] MEDS: 0.9% Normal Saline (Pres. free 10 ML Vial (19:15)
[2021-06-24] MEDS: Epinephrine (1 mg/ml) 1 MG/ML VIAL (19:15)
--- NOTE | 2021-06-24 19:58 | DIALYSIS ---
HD tx 3 hrs completed without complications, pt tolerated well. Pt stable post tx. Total UF removed 600ml. See tx sheet in chart.
[2021-06-24 23:50] LABS: Bedside Glucose 235 mg/dL (70-110)
[2021-06-25] VITALS (73 sets, daily range): BP systolic 83–140; BP diastolic 37–93; PULSE 72–131; RESP 16–25; TEMP 35.9–36.3; O2SAT 97–100
[2021-06-25 01:48] LABS: Hematocrit 24.3 % (40-54); Hemoglobin 8.4 g/dL (13.0-16.5)
[2021-06-25 05:29] LABS: Absolute Lymphocyte Count 1.58 X10^3/uL (0.83-4.51); Absolute Neutrophil Count 5.5 X10^3/uL (2.0-7.7); Basophil# 0.03 X10^3/uL; Basophil% 0.4 % (0-1); Eosinophil# 0.17 X10^3/uL; Eosinophils% 2.2 % (0-5); Hematocrit 22.8 % (40-54); Hemoglobin 7.8 g/dL (13.0-16.5); Lymphocyte # 1.58 X10^3/ul (0.83-4.51); Lymphocyte % 20.1 % (19-41); Mean Corp Hgb Conc 34.2 g/dL (32-36); Mean Corpuscular Hgb 30.5 pg (27.0-32.0); Mean Corpuscular Volume 89.1 fL (80-94); Mean Platelet Vol. 9.5 fl (6.2-12.0); Monocyte# 0.55 X10^3/uL; NRBC Flagged by Analyzer 0 % (0-5); Neutrophil % 69.8 % (47-70); POSITIVE MORPHOLOGY YES; Platelet Count 104 K/mm3 (150-450); RBC Distribution Width CV 14.2 % (11.6-14.6); RBC Distribution Width SD 46.5 fl (35.1-43.9); Red Blood Count 2.56 M/mm3 (4.6-6.2); White Blood Count 7.9 K/mm3 (4.4-11.0)
[2021-06-25 05:31] LABS: Differential Indicated SCAN CRITERIA MET
[2021-06-25 05:46] LABS: Differential Comment SCANNED
--- NOTE | 2021-06-25 05:52 | PCM.PN.INT ---
Assessment & Plan Assessment/Plan (1) Hemorrhagic shock: PLAN: RECOMMENDATIONS: 1. Continue combination of Levophed and vasopressin to maintain hemodynamic stability. 2. Transfuse additional packed red blood cells. Check H&H posttransfusion. 3. Continue PPI therapy as ordered. 4. Continue amiodarone. 5. Continue hemodialysis support per nephrology recommendations. 6. Continue empiric antimicrobials. IMPRESSIONS: 1. Hemorrhagic shock The patient presented with acute blood loss anemia, with a drop in hemoglobin from 12 on June 15 to a hemoglobin of 6.8 on presentation. The patient had been on systemic anticoagulation with Eliquis. He did receive Kcentra and vitamin K. The patient was also started on PPI therapy. To date, he has received 7 unit of packed red blood cells. The patient was scoped by GI. Given that the patient remains hemodynamically and clinically unstable, will transfuse additional packed red blood cells. Check H&H posttransfusion. Continue combination of vasopressin and Levophed to maintain hemodynamic stability. 2. Recent diagnosis of COVID-19/residual bilateral infiltrates on chest imaging It is unclear whether the patient's chest imaging study demonstrates an acute process versus residual findings from his prior Covid infection. I do not have any outside chest imaging studies to be able to compare to. For now, it is reasonable to continue empiric antimicrobials for now. 3. Paroxysmal atrial fibrillation with RVR Initial troponin was unremarkable. Echocardiogram revealed intact systolic function. Plan to continue amiodarone for now. 4. End-stage renal disease on hemodialysis Continue hemodialysis support per nephrology recommendations. 5. Diabetes mellitus/hypertension/hyperlipidemia/anxiety/depression Complicates care, management, recovery and prognosis. Continue to hold home antihypertensives for now. TIME: 35 minutes of critical care time, independent of procedures, was spent addressing the patient's hemorrhagic shock, bilateral infiltrates on chest imaging, paroxysmal atrial fibrillation with RVR, end-stage renal disease, review of all data and collaboration with the care team. ([id number]) Subjective Subjective The patient was seen and examined at the bedside this morning. Events from the last 24 hours have been reviewed. The patient did undergo dialysis yesterday with 600 mL of fluid removed. Last evening, the patient developed bloody bowel movements. He remained anemic, despite transfusion of blood products. To date, the patient has received a total of 7 units of packed red blood cells. Gastroenterology reevaluated the patient at the bedside and performed a repeat upper endoscopy. A large ulcer was noted in the stomach likely secondary to H. pylori and highly suspicious for adenocarcinoma. Oozing gastric ulcers were also noted which were treated with a heater probe and epinephrine. Nursing staff does report ongoing bloody bowel movements. The patient remains on Levophed at 12 mcg/min along with vasopressin to maintain hemodynamic stability. The patient also remains on amiodarone due to his atrial fibrillation. He is currently documented to be overall net +9.3 L for the hospitalization. Hemoglobin this morning was noted to be 7.8 g/dL. Platelet count is down to 104,000. The patient's corrected calcium for hypoalbuminemia is 8.9 mg/dL. Objective Data Objective Data The patient's most recent lab work, culture data and imaging studies have all been personally reviewed. Surface echocardiogram revealed normal LV size and function with an ejection fraction of 60%. Respiratory viral panel was negative. Blood cultures are pending. Vital Signs: Vital Signs Temp Pulse Resp BP Pulse Ox 97.3 F L 123 H 20 H 109/59 L 99 06/25/21 04:00 06/25/21 05:15 06/25/21 05:00 06/25/21 05:15 06/25/21 05:00 Oxygen Flow Rate (L/min) 1 Oxygen Delivery Method Nasal Cannula Weight: 72.1 kg Body Mass Index (BMI) 22.4 Intake & Output: Intake and Output for Last 24 Hours 06/23/21 06/24/21 06/25/21 23:59 23:59 23:59 Intake Total 4626.76 / 4645.56 3821.32 / 3863.55 730.68 / 730.68 Output Total 0 / 0 0 / 0 Balance 4626.76 / 4645.56 3821.32 / 3863.55 730.68 / 730.68 Lab / Micro Data Result Diagrams: 06/25/21 05:08 06/25/21 05:08 Labs: Laboratory Results - last 24 hr 06/22/21 23:35: Crossmatch See Detail 06/22/21 23:35: Crossmatch See Detail 06/24/21 00:00: Crossmatch See Detail 06/24/21 06:30: POC Glucose 179 H 06/24/21 13:04: POC Glucose 145 H 06/24/21 15:00: Hgb 7.2 L, Hct 20.6 L 06/24/21 18:00: Troponin I High Sens 7 06/24/21 18:21: POC Glucose 194 H 06/24/21 23:40: POC Glucose 235 H 06/25/21 01:39: Hgb 8.4 L, Hct 24.3 L 06/25/21 05:08: WBC 7.9, RBC 2.56 L, Hgb 7.8 L, Hct 22.8 L, MCV 89.1 D, MCH 30.5, MCHC 34.2, RDW Std Deviation 46.5 H, RDW Coeff of Rose 14.2, Plt Count 104 L, MPV 9.5, Immature Gran % (Auto) 0.500, Neut % (Auto) 69.8, Lymph % (Auto) 20.1, [place] % (Auto) 7.0, Eos % (Auto) 2.2, Baso % (Auto) 0.4, Absolute Neuts (auto) 5.5, Absolute Lymphs (auto) 1.58, Nucleated RBC % 0, Differential Comment SCANNED Micro: Microbiology 06/23/21 04:40 Mucosa - Nose Respiratory Panel (PCR) - Final Physical Exam Const no apparent distress Constitutional Narrative: Unkempt in appearance. Appears older than stated age. General Appearance: lethargic HEENT normocephalic and head/scalp atraumatic Eyes PERRL Neck supple General: trachea midline Chest inspection of chest normal Resp Auscultation: diminished lung sounds; Negative for rales, rhonchi or wheezes Cardio S1 normal heart sound and S2 normal heart sound Rate: tachycardic Rhythm: abnormal rhythm GI normal to inspection, nondistended, normoactive bowel sounds Extremity no clubbing, cyanosis or edema Neuro no focal motor deficits Psych Mood & Affect: flat affect Charges/Coding Procedures Hospitalists Procedures: 38364 Critial Care 1st Hr
[2021-06-25 05:59] LABS: Anion Gap 7 (5-15); BUN 67 mg/dL (7-18); BUN/Creat Ratio 19.8 RATIO (10-20); Calcium,Total 6.4 mg/dL (8.5-10.1); Chloride 102 mmol/L (98-107); Creatinine, Serum 3.38 mg/dL (0.70-1.30); EST Glomerular Filtration Rate 19 mL/min (>60); Est Glom Filt Rate - Afr Amer 23 mL/min (>60); Estimated Creatinine Clearance 20.05 ml/min; Glucose 199 mg/dL (74-106); Potassium 4.1 mmol/L (3.5-5.1); Sodium Level 137 mmol/L (136-145)
[2021-06-25] MEDS: Insulin Lispro 100 UNIT/ML INSULN.PEN SC ×3 (06:28→17:52)
[2021-06-25] MEDS: Sucralfate 1 GM Tablet PO ×4 (07:30→20:26)
[2021-06-25] MEDS: CHLORHEXIDINE GLUC 2% CLOTH 1 EACH TOWELETTE TOPICAL (10:12)
[2021-06-25 12:25] LABS: Bedside Glucose 154 mg/dL (70-110)
[2021-06-25 12:39] LABS: Hematocrit 25.1 % (40-54); Hemoglobin 8.9 g/dL (13.0-16.5)
--- NOTE | 2021-06-25 13:07 | PN.HOSP_ITS ---
Subjective Subjective We will transfuse another unit today secondary to a drop in his hemoglobin from 8.4 yesterday to 7.8 this morning. He did have a repeat endoscopy last evening at bedside which demonstrated multiple ulcers needing injection and cautery Objective Data Objective Data Vital Signs: Vital Signs Temp Pulse Resp BP Pulse Ox 97.0 F L 121 H 20 H 115/64 100 06/25/21 12:00 06/25/21 12:45 06/25/21 12:45 06/25/21 12:45 06/25/21 12:45 Oxygen Flow Rate (L/min) 1 Oxygen Delivery Method Nasal Cannula Weight: 160 lb 0.889 oz Body Mass Index (BMI) 22.4 Intake & Output: Intake and Output for Last 24 Hours 06/24/21 06/25/21 06/26/21 03:59 03:59 03:59 Intake Total 3316.96 / 3335.76 4312.64 / 4317.34 1065.65 / 1065.65 Output Total 0 / 0 0 / 0 0 / 0 Balance 3316.96 / 3335.76 4312.64 / 4317.34 1065.65 / 1065.65 Lab / Micro Data Result Diagrams: 06/25/21 12:20 06/25/21 05:08 Labs: Laboratory Results - last 24 hr 06/22/21 23:35: Crossmatch See Detail 06/24/21 00:00: Crossmatch See Detail 06/24/21 13:04: POC Glucose 145 H 06/24/21 15:00: Hgb 7.2 L, Hct 20.6 L 06/24/21 18:00: Troponin I High Sens 7 06/24/21 18:21: POC Glucose 194 H 06/24/21 23:40: POC Glucose 235 H 06/25/21 01:39: Hgb 8.4 L, Hct 24.3 L 06/25/21 05:08: Sodium 137, Potassium 4.1, Chloride 102, Carbon Dioxide 28.0, Anion Gap 7, BUN 67 H, Creatinine 3.38 H, Estim Creat Clear Calc 20.05, Est GFR (MDRD) Af Amer 23 L, Est GFR (MDRD) Non-Af 19 L, BUN/Creatinine Ratio 19.8, Glucose 199 H, Calcium 6.4 L*, Phosphorus 3.0 06/25/21 05:08: WBC 7.9, RBC 2.56 L, Hgb 7.8 L, Hct 22.8 L, MCV 89.1 D, MCH 30.5, MCHC 34.2, RDW Std Deviation 46.5 H, RDW Coeff of Rose 14.2, Plt Count 104 L, MPV 9.5, Immature Gran % (Auto) 0.500, Neut % (Auto) 69.8, Lymph % (Auto) 20.1, [place] % (Auto) 7.0, Eos % (Auto) 2.2, Baso % (Auto) 0.4, Absolute Neuts (auto) 5.5, Absolute Lymphs (auto) 1.58, Nucleated RBC % 0, Differential Comment SCANNED 06/25/21 12:20: Hgb 8.9 L, Hct 25.1 L 06/25/21 12:20: POC Glucose 154 H Micro: Microbiology 06/23/21 05:15 Blood Culture (Wb) - Anticubital Right Blood Culture - Preliminary No growth in 48 hours. 06/23/21 05:15 Blood Culture (Wb) - Line Draw Blood Culture - Preliminary No growth in 48 hours. 06/23/21 04:40 Mucosa - Nose Respiratory Panel (PCR) - Final Physical Exam Const no apparent distress General Appearance: cooperative Orientation / Consciousness: lethargic HEENT normocephalic and moist oral mucous membranes Eyes PERRL, EOMs intact bilaterally and conjunctivae normal Neck supple and no JVD Resp normal respiratory effort, no retractions, no use of accessory muscles and clear to auscultation bilaterally Auscultation: Negative for crackles, rales, rhonchi or wheezes Cardio regular rhythm, S1 normal heart sound, S2 normal heart sound and no murmurs Rate: tachycardic GI soft to palpation, non-tender and non-distended; Negative for hepatosplenomegaly Extremity no clubbing, cyanosis or edema Skin no rashes or lesions noted Neuro no focal motor deficits and no sensory deficits noted Psych Appearance: appropriate Mood & Affect: flat affect Assessment & Plan Assessment/Plan (1) Hemorrhagic shock: (2) Gastrointestinal bleeding: QUALIFIERS: GI bleed type/associated pathology: unspecified gastrointestinal hemorrhage type Qualified Code(s): K92.2 - Gastrointestinal hemorrhage, unspecified PLAN: 1. Acute Hemorrhagic Shock secondary to Acute GI Bleed and possibly hematuria w/ resultant Acute Blood Loss Anemia on Chronic Anemia/AOCD and Acute Encephalopathy: Will admit to the ICU, continue consultation with gastroenterology and senior supply chain analyst, given currently MAP less than 65 will attempt additional aggressive IV fluid bolus, continue planned total 2 u PRBC administration, continue NEP given MAP < 65, maintain on IVFs, will continue IV PPI, n.p.o. status. Holding patient home Eliquis therapy. -06/24/2021: He was transfused 3 units yesterday and still hemoglobin of 6.8 therefore will receive 2 more units today. Levophed is up to 12 mcg/h -06/25/2021: This morning his Levophed has a drip to 20mcg/min, he was transfused another unit this morning and now is down to 14 mcg/min, is also on vasopressin. Repeat hemoglobin this morning when he was 8.9 after his transfusion. 2. Paroxysmal atrial fibrillation with RVR: EKG in ED w/ atrial fibrillation with RVR. Will maintain on telemetry, obtain cardiac enzyme serial set, obtain magnesium level, obtain ECHO, obtain TSH level, holding patient Eliquis given presentation as noted above #1, given blood pressure will initiate amnio bolus and drip with continued close vital sign monitoring. -06/24/2021: Continue with amiodarone with pressor support 3. Pneumonia, Possible Aspiration, Possible GN/GP Organism: CXR in the ED w/ infiltrate, concern for aspiration given current presentation, obtained following central line placement, awaiting final read. Will maintain on oxygen with wean as tolerated to room air, PRN albuterol, maintained on IV Zosyn and Vancomycin w/ pending MRSA screen and de-escalation as able, HOB, IS parameters w/ pending sputum cultures and urine antigens. Bld cx x 2 requested. This may possibly be related to the hypotension in addition to #1. -06/24/2021, will continue with empiric antibiotics for now, blood cultures are pending 4. Diabetes mellitus type II: Hold oral home regimen, continue home insulin regimen, NPO status w/ q 6 hour accu checks w/ ISS. 5. ESRD: Patient with recent dialysis on day prior to current presentation, Sunday, will consult nephrology. 6. Hypertension: Given presentation holding all patient hypertensive regimen, add back once appropriate. 7. Hyperlipidemia: Continue home statin regimen. 8. Anxiety and depression: We will continue patient home fluoxetine regimen. DVT: SCDs Charges/Coding Visit Charges Inpatient E&M: 11927 Subs Hosp L2
[2021-06-25 18:01] LABS: Bedside Glucose 154 mg/dL (70-110)
--- NOTE | 2021-06-25 19:00 | PN.RENAL_ITS ---
Subjective Subjective Following for ESRD. The patient denies abdominal pain. He denies chest pain or shortness of breath. Objective Data Objective Data Vital Signs: Vital Signs Temp Pulse Resp BP Pulse Ox 97.2 F L 85 16 112/48 L 100 06/25/21 16:15 06/25/21 18:00 06/25/21 18:00 06/25/21 18:00 06/25/21 18:00 Oxygen Flow Rate (L/min) 1 Oxygen Delivery Method Nasal Cannula Weight: 72.6 kg Body Mass Index (BMI) 22.4 Intake & Output: Intake and Output for Last 24 Hours 06/23/21 06/24/21 06/25/21 23:59 23:59 23:59 Intake Total 4626.76 / 4645.56 3821.32 / 3863.55 2159.33 / 2159.33 Output Total 0 / 0 0 / 0 0 / 0 Balance 4626.76 / 4645.56 3821.32 / 3863.55 2159.33 / 2159.33 Lab / Micro Data Result Diagrams: 06/25/21 12:20 06/25/21 05:08 Labs: Laboratory Results - last 24 hr 06/22/21 23:35: Crossmatch See Detail 06/24/21 00:00: Crossmatch See Detail 06/24/21 18:21: POC Glucose 194 H 06/24/21 23:40: POC Glucose 235 H 06/25/21 01:39: Hgb 8.4 L, Hct 24.3 L 06/25/21 05:08: Sodium 137, Potassium 4.1, Chloride 102, Carbon Dioxide 28.0, Anion Gap 7, BUN 67 H, Creatinine 3.38 H, Estim Creat Clear Calc 20.05, Est GFR (MDRD) Af Amer 23 L, Est GFR (MDRD) Non-Af 19 L, BUN/Creatinine Ratio 19.8, Glucose 199 H, Calcium 6.4 L*, Phosphorus 3.0 06/25/21 05:08: WBC 7.9, RBC 2.56 L, Hgb 7.8 L, Hct 22.8 L, MCV 89.1 D, MCH 30.5, MCHC 34.2, RDW Std Deviation 46.5 H, RDW Coeff of Rose 14.2, Plt Count 104 L, MPV 9.5, Immature Gran % (Auto) 0.500, Neut % (Auto) 69.8, Lymph % (Auto) 20.1, [place] % (Auto) 7.0, Eos % (Auto) 2.2, Baso % (Auto) 0.4, Absolute Neuts (auto) 5.5, Absolute Lymphs (auto) 1.58, Nucleated RBC % 0, Differential Comment SCANNED 06/25/21 12:20: Hgb 8.9 L, Hct 25.1 L 06/25/21 12:20: POC Glucose 154 H 06/25/21 17:51: POC Glucose 154 H Micro: Microbiology 06/23/21 05:15 Blood Culture (Wb) - Anticubital Right Blood Culture - Preliminary No growth in 48 hours. 06/23/21 05:15 Blood Culture (Wb) - Line Draw Blood Culture - Preliminary No growth in 48 hours. 06/23/21 04:40 Mucosa - Nose Respiratory Panel (PCR) - Final Physical Exam Narrative General: No apparent distress Respiratory: lung sounds clear anteriorly; no rales, rhonchi noted Cardiovascular: S1-S2, rhythm irregular rate 130s -140s Extremities:no pitting edema noted Left forearm AV fistula positive thrill and bruit Assessment & Plan Assessment/Plan (1) ESRD (end stage renal disease): (2) Hemorrhagic shock: (3) A-fib: (4) Pneumonia: PLAN: -Dialysis schedule Sunday. -Tolerated dialysis well yesterday. No need for dialysis today. -The patient received more blood transfusion today. Continue AYANNA with dialysis. -Blood pressure is low, but has improved since admission. Pressor requirement has been coming down. -Current medications are reviewed and are appropriately dosed for ESRD patient. -Patient presented with low phosphorus. Phosphorus level is better after replacement yesterday. He is not on phosphorus binders with meals. Continue to monitor calcium and phosphorus level.
--- NOTE | 2021-06-25 19:07 | EKG12_ITS ---
Test Reason : RHYTHM CHANGE Blood Pressure : / mmHG Vent. Rate : 086 BPM Atrial Rate : 086 BPM P-R Int : 130 ms QRS Dur : 086 ms QT Int : 438 ms P-R-T Axes : 026 039 015 degrees QTc Int : 524 ms Normal sinus rhythm Low voltage QRS (Limb Leads) Borderline ECG Confirmed by MICHAEL WALTER, ABIMAEL ([id number]), purchase request editor LOAN WILKS ([id number]) on 06/29/2021 9:47:16 AM Referred By: BARB Confirmed By:ABIMAEL RODRIGUEZ MD
[2021-06-25 20:34] LABS: Hematocrit 23.3 % (40-54)
[2021-06-26] VITALS (35 sets, daily range): BP systolic 86–136; BP diastolic 38–62; PULSE 52–78; RESP 10–22; TEMP 35.7–36.8; O2SAT 97–100
[2021-06-26 00:31] LABS: Bedside Glucose 145 mg/dL (70-110)
[2021-06-26 05:15] LABS: Absolute Lymphocyte Count 1.05 X10^3/uL (0.83-4.51); Absolute Neutrophil Count 6.6 X10^3/uL (2.0-7.7); Basophil# 0.03 X10^3/uL; Basophil% 0.4 % (0-1); Eosinophil# 0.21 X10^3/uL; Eosinophils% 2.5 % (0-5); Hematocrit 23.4 % (40-54); Lymphocyte # 1.05 X10^3/ul (0.83-4.51); Lymphocyte % 12.6 % (19-41); Mean Corp Hgb Conc 34.2 g/dL (32-36); Mean Corpuscular Hgb 30.3 pg (27.0-32.0); Mean Corpuscular Volume 88.6 fL (80-94); Mean Platelet Vol. 9.6 fl (6.2-12.0); Monocyte# 0.39 X10^3/uL; Monocyte% 4.7 % (0-10); NRBC Flagged by Analyzer 0 % (0-5); Neutrophil # 6.59 X10^3/uL (2.7-7.7); Neutrophil % 79.2 % (47-70); Platelet Count 134 K/mm3 (150-450); RBC Distribution Width CV 14.8 % (11.6-14.6); Red Blood Count 2.64 M/mm3 (4.6-6.2); White Blood Count 8.3 K/mm3 (4.4-11.0)
--- NOTE | 2021-06-26 05:33 | PCM.PN.INT ---
Assessment & Plan Assessment/Plan (1) Hemorrhagic shock: PLAN: RECOMMENDATIONS: 1. Continue Levophed to maintain hemodynamic stability. 2. Continue to monitor H&H and transfuse if hemoglobin drops below 7 g/dL. 3. Continue PPI therapy as ordered. 4. Continue hemodialysis support per nephrology recommendations. 5. Continue empiric antimicrobials. IMPRESSIONS: 1. Hemorrhagic shock The patient presented with acute blood loss anemia, with a drop in hemoglobin from 12 on June 15 to a hemoglobin of 6.8 on presentation. The patient had been on systemic anticoagulation with Eliquis. He did receive Kcentra and vitamin K. The patient was also started on PPI therapy. To date, he has received 8 unit of packed red blood cells. The patient was scoped by GI and interventions performed. The patient is clinically improving. He will be continued on Levophed to maintain hemodynamic stability. We will continue to monitor H&H and transfuse if hemoglobin drops below 7 g/dL. 2. Recent diagnosis of COVID-19/residual bilateral infiltrates on chest imaging It is unclear whether the patient's chest imaging study demonstrates an acute process versus residual findings from his prior Covid infection. I do not have any outside chest imaging studies to be able to compare to. For now, it is reasonable to continue empiric antimicrobials for now. 3. Paroxysmal atrial fibrillation with RVR Initial troponin was unremarkable. Echocardiogram revealed intact systolic function. The patient has been weaned from amiodarone and is now in normal sinus rhythm. 4. End-stage renal disease on hemodialysis Continue hemodialysis support per nephrology recommendations. 5. Diabetes mellitus/hypertension/hyperlipidemia/anxiety/depression Complicates care, management, recovery and prognosis. Continue to hold home antihypertensives for now. TIME: 32 minutes of critical care time, independent of procedures, was spent addressing the patient's hemorrhagic shock, bilateral infiltrates on chest imaging, paroxysmal atrial fibrillation with RVR, end-stage renal disease, review of all data and collaboration with the care team. ([id number]) Subjective Subjective The patient was seen and examined at the bedside this morning. Events from the last 24 hours have been reviewed. The patient appears to have stabilized clinically over the last 24 hours. To date, the patient has received 8 units of packed red blood cells. Vasopressor requirement has improved. The patient is no longer on vasopressin. He is currently requiring Levophed at 11 mcg/min to maintain hemodynamic stability. The patient did convert from atrial fibrillation to normal sinus rhythm overnight as well. Nursing staff did report 1 bowel movement this morning which was dark and melanotic in appearance. The patient is currently documented to be overall net +11 L for the hospital admission. The patient remains on empiric antimicrobials and PPI therapy as well. Hemoglobin is stable at 8.0 g/dL. Platelet count is stable at 134,000. Objective Data Objective Data The patient's most recent lab work, culture data and imaging studies have all been personally reviewed. Surface echocardiogram revealed normal LV size and function with an ejection fraction of 60%. Respiratory viral panel was negative. Blood cultures have demonstrated no growth to date. Vital Signs: Vital Signs Temp Pulse Resp BP Pulse Ox 97.2 F L 67 15 105/38 L 100 06/26/21 03:00 06/26/21 05:30 06/26/21 05:00 06/26/21 05:30 06/26/21 05:00 Oxygen Flow Rate (L/min) 1 Oxygen Delivery Method Nasal Cannula Weight: 72.6 kg Body Mass Index (BMI) 22.4 Intake & Output: Intake and Output for Last 24 Hours 06/24/21 06/25/21 06/26/21 23:59 23:59 23:59 Intake Total 3821.32 / 3863.55 2262.33 / 2267.33 281.67 / 281.67 Output Total 0 / 0 0 / 0 0 / 0 Balance 3821.32 / 3863.55 2262.33 / 2267.33 281.67 / 281.67 Lab / Micro Data Attestation: I reviewed the patient's lab results. Result Diagrams: 06/26/21 04:50 06/26/21 04:50 Labs: Laboratory Results - last 24 hr 06/22/21 23:35: Crossmatch See Detail 06/24/21 00:00: Crossmatch See Detail 06/25/21 05:08: Sodium 137, Potassium 4.1, Chloride 102, Carbon Dioxide 28.0, Anion Gap 7, BUN 67 H, Creatinine 3.38 H, Estim Creat Clear Calc 20.05, Est GFR (MDRD) Af Amer 23 L, Est GFR (MDRD) Non-Af 19 L, BUN/Creatinine Ratio 19.8, Glucose 199 H, Calcium 6.4 L*, Phosphorus 3.0 06/25/21 05:08: WBC 7.9, RBC 2.56 L, Hgb 7.8 L, Hct 22.8 L, MCV 89.1 D, MCH 30.5, MCHC 34.2, RDW Std Deviation 46.5 H, RDW Coeff of Rose 14.2, Plt Count 104 L, MPV 9.5, Immature Gran % (Auto) 0.500, Neut % (Auto) 69.8, Lymph % (Auto) 20.1, [place] % (Auto) 7.0, Eos % (Auto) 2.2, Baso % (Auto) 0.4, Absolute Neuts (auto) 5.5, Absolute Lymphs (auto) 1.58, Nucleated RBC % 0, Differential Comment SCANNED 06/25/21 12:20: Hgb 8.9 L, Hct 25.1 L 06/25/21 12:20: POC Glucose 154 H 06/25/21 17:51: POC Glucose 154 H 06/25/21 20:12: Hgb 8.0 L, Hct 23.3 L 06/26/21 00:22: POC Glucose 145 H 06/26/21 04:50: WBC 8.3, RBC 2.64 L, Hgb 8.0 L, Hct 23.4 L, MCV 88.6, MCH 30.3, MCHC 34.2, RDW Std Deviation 48.0 H, RDW Coeff of Rose 14.8 H, Plt Count 134 L, MPV 9.6, Immature Gran % (Auto) 0.600, Neut % (Auto) 79.2 H, Lymph % (Auto) 12.6 L, [place] % (Auto) 4.7, Eos % (Auto) 2.5, Baso % (Auto) 0.4, Absolute Neuts (auto) 6.6, Absolute Lymphs (auto) 1.05, Nucleated RBC % 0 Micro: Microbiology 06/23/21 05:15 Blood Culture (Wb) - Anticubital Right Blood Culture - Preliminary No growth in 48 hours. 06/23/21 05:15 Blood Culture (Wb) - Line Draw Blood Culture - Preliminary No growth in 48 hours. 06/23/21 04:40 Mucosa - Nose Respiratory Panel (PCR) - Final Physical Exam Const no apparent distress Constitutional Narrative: Unkempt in appearance. Appears older than stated age. General Appearance: lethargic HEENT normocephalic and head/scalp atraumatic Eyes PERRL Neck supple General: trachea midline Chest inspection of chest normal Resp Auscultation: diminished lung sounds; Negative for rales, rhonchi or wheezes Cardio S1 normal heart sound and S2 normal heart sound Rate: tachycardic Rhythm: abnormal rhythm GI normal to inspection, nondistended, normoactive bowel sounds Extremity no clubbing, cyanosis or edema Neuro no focal motor deficits Psych Mood & Affect: flat affect Charges/Coding Procedures Hospitalists Procedures: 89323 Critial Care 1st Hr
[2021-06-26 05:56] LABS: ALB/GLOB Ratio 0.4 RATIO (0.9-2.4); AST(SGOT) 6 U/L (15-37); Alanine Aminotransfer ALT/SGPT 11 U/L (16-61); Alkaline Phosphatase 57 U/L (45-117); Anion Gap 16 (5-15); BUN 67 mg/dL (7-18); BUN/Creat Ratio 16.8 RATIO (10-20); Calcium,Total 6.6 mg/dL (8.5-10.1); Chloride 99 mmol/L (98-107); Creatinine, Serum 3.98 mg/dL (0.70-1.30); EST Glomerular Filtration Rate 16 mL/min (>60); Est Glom Filt Rate - Afr Amer 19 mL/min (>60); Estimated Creatinine Clearance 17.02 ml/min; Globulin 2.7 g/dL (2.2-4.2); Glucose 164 mg/dL (74-106); Potassium 3.9 mmol/L (3.5-5.1); Protein, Total 3.7 g/dL (6.4-8.2); Sodium Level 136 mmol/L (136-145)
[2021-06-26] MEDS: Insulin Lispro 100 UNIT/ML INSULN.PEN SC ×3 (06:05→17:32)
[2021-06-26] MEDS: Sucralfate 1 GM Tablet PO ×4 (06:58→20:47)
--- NOTE | 2021-06-26 08:58 | PN.HOSP_ITS ---
Subjective Subjective No issues overnight, repeat hemoglobin last night was 8 and repeat hemoglobin this morning was also 8. We will recheck it this afternoon and see if he needs any more blood. We were able to move his vasopressin and come down on his Levophed a little Objective Data Objective Data Vital Signs: Vital Signs Temp Pulse Resp BP Pulse Ox 98.2 F 68 16 122/49 H 100 06/26/21 07:00 06/26/21 07:00 06/26/21 07:00 06/26/21 07:00 06/26/21 07:00 Oxygen Flow Rate (L/min) 1 Oxygen Delivery Method Nasal Cannula Weight: 163 lb 2.273 oz Body Mass Index (BMI) 22.4 Intake & Output: Intake and Output for Last 24 Hours 06/25/21 06/26/21 06/27/21 03:59 03:59 03:59 Intake Total 4312.64 / 4317.34 1876.88 / 1897.48 279.67 / 279.67 Output Total 0 / 0 0 / 0 Balance 4312.64 / 4317.34 1876.88 / 1897.48 279.67 / 279.67 Lab / Micro Data Result Diagrams: 06/26/21 04:50 06/26/21 04:50 Labs: Laboratory Results - last 24 hr 06/22/21 23:35: Crossmatch See Detail 06/24/21 00:00: Crossmatch See Detail 06/25/21 12:20: Hgb 8.9 L, Hct 25.1 L 06/25/21 12:20: POC Glucose 154 H 06/25/21 17:51: POC Glucose 154 H 06/25/21 20:12: Hgb 8.0 L, Hct 23.3 L 06/26/21 00:22: POC Glucose 145 H 06/26/21 04:50: WBC 8.3, RBC 2.64 L, Hgb 8.0 L, Hct 23.4 L, MCV 88.6, MCH 30.3, MCHC 34.2, RDW Std Deviation 48.0 H, RDW Coeff of Rose 14.8 H, Plt Count 134 L, MPV 9.6, Immature Gran % (Auto) 0.600, Neut % (Auto) 79.2 H, Lymph % (Auto) 12.6 L, [place] % (Auto) 4.7, Eos % (Auto) 2.5, Baso % (Auto) 0.4, Absolute Neuts (auto) 6.6, Absolute Lymphs (auto) 1.05, Nucleated RBC % 0 06/26/21 04:50: Sodium 136, Potassium 3.9, Chloride 99, Carbon Dioxide 21.0, Anion Gap 16 H, BUN 67 H, Creatinine 3.98 H, Estim Creat Clear Calc 17.02, Est GFR (MDRD) Af Amer 19 L, Est GFR (MDRD) Non-Af 16 L, BUN/Creatinine Ratio 16.8, Glucose 164 H, Calcium 6.6 L, Total Bilirubin 0.30, AST 6 L, ALT 11 L, Alkaline Phosphatase 57, Total Protein 3.7 L, Albumin 1.0 L, Globulin 2.7, Albumin/Globulin Ratio 0.4 L Micro: Microbiology 06/23/21 05:15 Blood Culture (Wb) - Anticubital Right Blood Culture - Preliminary No growth in 48 hours. 06/23/21 05:15 Blood Culture (Wb) - Line Draw Blood Culture - Preliminary No growth in 48 hours. 06/23/21 04:40 Mucosa - Nose Respiratory Panel (PCR) - Final Physical Exam Const no apparent distress General Appearance: cooperative Orientation / Consciousness: lethargic HEENT normocephalic and moist oral mucous membranes Eyes PERRL, EOMs intact bilaterally and conjunctivae normal Neck supple and no JVD Resp normal respiratory effort, no retractions, no use of accessory muscles and clear to auscultation bilaterally Auscultation: Negative for crackles, rales, rhonchi or wheezes Cardio regular rate, regular rhythm, S1 normal heart sound, S2 normal heart sound and no murmurs Rate: tachycardic GI soft to palpation, non-tender and non-distended; Negative for hepatosplenomegaly Extremity no clubbing, cyanosis or edema Skin no rashes or lesions noted Neuro no focal motor deficits and no sensory deficits noted Psych Appearance: appropriate Mood & Affect: flat affect Assessment & Plan Assessment/Plan (1) Hemorrhagic shock: (2) Gastrointestinal bleeding: QUALIFIERS: GI bleed type/associated pathology: unspecified gastrointestinal hemorrhage type Qualified Code(s): K92.2 - Gastrointestinal hemorrhage, unspecified PLAN: 1. Acute Hemorrhagic Shock secondary to Acute GI Bleed and possibly hematuria w/ resultant Acute Blood Loss Anemia on Chronic Anemia/AOCD and Acute Encephalopathy: Will admit to the ICU, continue consultation with gastroenterology and jewelry store manager, given currently MAP less than 65 will attempt additional aggressive IV fluid bolus, continue planned total 2 u PRBC administration, continue NEP given MAP < 65, maintain on IVFs, will continue IV PPI, n.p.o. status. Holding patient home Eliquis therapy. -06/24/2021: He was transfused 3 units yesterday and still hemoglobin of 6.8 therefore will receive 2 more units today. Levophed is up to 12 mcg/h -06/25/2021: This morning his Levophed has a drip to 20mcg/min, he was transfused another unit this morning and now is down to 14 mcg/min, is also on vasopressin. Repeat hemoglobin this morning when he was 8.9 after his transfusion. -06/26/2021: Hemoglobin is 8 this morning, Levophed is down to 11 mcg/min and vasopressin is off, will check a hemoglobin this afternoon 2. Paroxysmal atrial fibrillation with RVR: EKG in ED w/ atrial fibrillation with RVR. Will maintain on telemetry, obtain cardiac enzyme serial set, obtain magnesium level, obtain ECHO, obtain TSH level, holding patient Eliquis given presentation as noted above #1, given blood pressure will initiate amnio bolus and drip with continued close vital sign monitoring. -06/24/2021: Continue with amiodarone with pressor support - 06/26/2021: He spontaneously converted overnight his amiodarone is off 3. Pneumonia, Possible Aspiration, Possible GN/GP Organism: CXR in the ED w/ infiltrate, concern for aspiration given current presentation, obtained following central line placement, awaiting final read. Will maintain on oxygen with wean as tolerated to room air, PRN albuterol, maintained on IV Zosyn and Vancomycin w/ pending MRSA screen and de-escalation as able, HOB, IS parameters w/ pending sputum cultures and urine antigens. Bld cx x 2 requested. This may po ssibly be related to the hypotension in addition to #1. -06/24/2021, will continue with empiric antibiotics for now, blood cultures are pending -06/26/2021: Cultures are negative 4. Diabetes mellitus type II: Hold oral home regimen, continue home insulin regimen, NPO status w/ q 6 hour accu checks w/ ISS. 5. ESRD: Patient with recent dialysis on day prior to current presentation, Sunday, will consult nephrology. 6. Hypertension: Given presentation holding all patient hypertensive regimen, add back once appropriate. 7. Hyperlipidemia: Continue home statin regimen. 8. Anxiety and depression: We will continue patient home fluoxetine regimen. DVT: SCDs Charges/Coding Visit Charges Inpatient E&M: 00077 Subs Hosp L2
[2021-06-26] MEDS: CHLORHEXIDINE GLUC 2% CLOTH 1 EACH TOWELETTE TOPICAL (10:42)
--- NOTE | 2021-06-26 11:01 | NURSING ---
Attempted to get patient out of bed. Patient was a 2 assist to sit up on the edge of the bed and a 2 assist to stand. Patient stood for approximately 5 min. Patient was yelling that he can't move his legs. Patient was able to slide his feet a small amount with much encouragement from nursing staff. Patient sat back on the edge of bed and passive ROM to bilateral lower extremities completed. Patient stated he could not move his legs to lift them. Patient was assisted back to bed and positioned on his side.
[2021-06-26 12:50] LABS: Bedside Glucose 171 mg/dL (70-110)
[2021-06-26 13:57] LABS: Hematocrit 23.7 % (40-54); Hemoglobin 8.2 g/dL (13.0-16.5)
[2021-06-26 17:40] LABS: Bedside Glucose 175 mg/dL (70-110)
[2021-06-26] MEDS: 0.9% Saline Lock 10 ML Syringe IV (20:48)
[2021-06-27] VITALS (38 sets, daily range): BP systolic 94–144; BP diastolic 42–74; PULSE 65–85; RESP 10–21; TEMP 35.7–36.6; O2SAT 94–100
[2021-06-27] MEDS: Insulin Lispro 100 UNIT/ML INSULN.PEN SC (00:53)
[2021-06-27 01:01] LABS: Bedside Glucose 151 mg/dL (70-110)
[2021-06-27 05:41] LABS: Hematocrit 23.5 % (40-54); Hemoglobin 7.9 g/dL (13.0-16.5); Mean Corp Hgb Conc 33.6 g/dL (32-36); Mean Corpuscular Hgb 29.8 pg (27.0-32.0); Mean Corpuscular Volume 88.7 fL (80-94); Mean Platelet Vol. 9.5 fl (6.2-12.0); Platelet Count 165 K/mm3 (150-450); RBC Distribution Width SD 48.3 fl (35.1-43.9); Red Blood Count 2.65 M/mm3 (4.6-6.2); White Blood Count 7.2 K/mm3 (4.4-11.0)
[2021-06-27 05:54] LABS: Anion Gap 16 (5-15); BUN 69 mg/dL (7-18); BUN/Creat Ratio 15.2 RATIO (10-20); Calcium,Total 6.9 mg/dL (8.5-10.1); Chloride 102 mmol/L (98-107); Creatinine, Serum 4.53 mg/dL (0.70-1.30); EST Glomerular Filtration Rate 14 mL/min (>60); Est Glom Filt Rate - Afr Amer 17 mL/min (>60); Estimated Creatinine Clearance 14.96 ml/min; Glucose 144 mg/dL (74-106); Potassium 3.8 mmol/L (3.5-5.1); Sodium Level 136 mmol/L (136-145)
[2021-06-27 06:41] LABS: Bedside Glucose 138 mg/dL (70-110)
--- NOTE | 2021-06-27 07:10 | PN.CC_ITS ---
Assessment & Plan Assessment/Plan (1) Hemorrhagic shock: PLAN: RECOMMENDATIONS: 1. Continue Levophed to maintain hemodynamic stability. Add midodrine 2. Continue to monitor H&H and transfuse if hemoglobin drops below 7 g/dL. 3. Continue PPI therapy as ordered. 4. Continue hemodialysis support per nephrology recommendations. 5. Continue empiric antimicrobials. IMPRESSIONS: 1. Hemorrhagic shock The patient presented with acute blood loss anemia, with a drop in hemoglobin from 12 on June 15 to a hemoglobin of 6.8 on presentation. The patient had been on systemic anticoagulation with Eliquis. He did receive Kcent ra and vitamin K. The patient was also started on PPI therapy. To date, he has received 8 unit of packed red blood cells. The patient was scoped by GI and interventions performed. The patient is clinically improving. He will be continued on Levophed to maintain hemodynamic stability. Will add midodrine therapy to see if this will help with Levophed weaning. Patient has not required a transfusion in over 24 hours. 2. Recent diagnosis of COVID-19/residual bilateral infiltrates on chest imaging It is unclear whether the patient's chest imaging study demonstrates an acute process versus residual findings from his prior Covid infection. I do not have any outside chest imaging studies to be able to compare to. Anticipate continuation of antimicrobials until patient can be taken off of pressors at a minimum. Occult infection can happen in end-stage renal disease. 3. Paroxysmal atrial fibrillation with RVR Initial troponin was unremarkable. Echocardiogram revealed intact systolic function. The patient has been weaned from amiodarone and is now in normal sinus rhythm. 4. End-stage renal disease on hemodialysis Continue hemodialysis support per nephrology recommendations. Chronic dialysis Sunday, Sunday and Sunday. 5. Diabetes mellitus/hypertension/hyperlipidemia/anxiety/depression Complicates care, management, recovery and prognosis. Continue to hold home antihypertensives for now. TIME: 33 minutes of critical care time, independent of procedures, was spent addressing the patient's hemorrhagic shock, bilateral infiltrates on chest imaging, paroxysmal atrial fibrillation with RVR, end-stage renal disease, review of all data and collaboration with the care team. (5:45 AM to 6:45 AM) Subjective Subjective Patient did okay overnight. No acute issues were reported. Patient is no longer having any bleeding and has not required a blood transfusion in the last 24 hours. Patient reports some pain of the right upper extremity along with swelling. Patient states this is not typical. Patient has been doing well on room air, but is still requiring Levophed to maintain adequate blood pressures. Objective Data Objective Data Vital Signs: Vital Signs Temp Pulse Resp BP Pulse Ox 35.7 C L 66 12 130/58 H 100 06/27/21 04:00 06/27/21 07:00 06/27/21 07:00 06/27/21 07:00 06/27/21 07:00 Oxygen Flow Rate (L/min) 1 Oxygen Delivery Method Room Air Weight: 75.4 kg Body Mass Index (BMI) 22.4 Intake & Output: Intake and Output for Last 24 Hours 06/25/21 06/26/21 06/27/21 23:59 23:59 23:59 Intake Total 2262.33 / 2267.33 1178.04 / 1294.94 285.20 / 285.20 Output Total 0 / 0 0 / 0 0 / 0 Balance 2262.33 / 2267.33 1178.04 / 1294.94 285.20 / 285.20 Lab / Micro Data Result Diagrams: 06/27/21 04:35 06/27/21 04:35 Labs: Laboratory Results - last 24 hr 06/26/21 11:43: POC Glucose 171 H 06/26/21 13:45: Hgb 8.2 L, Hct 23.7 L 06/26/21 17:29: POC Glucose 175 H 06/27/21 00:52: POC Glucose 151 H 06/27/21 04:35: WBC 7.2, RBC 2.65 L, Hgb 7.9 L, Hct 23.5 L, MCV 88.7, MCH 29.8, MCHC 33.6, RDW Std Deviation 48.3 H, RDW Coeff of Rose 15.0 H, Plt Count 165, MPV 9.5 06/27/21 04:35: Sodium 136, Potassium 3.8, Chloride 102, Carbon Dioxide 18.0 L, Anion Gap 16 H, BUN 69 H, Creatinine 4.53 H, Estim Creat Clear Calc 14.96, Est GFR (MDRD) Af Amer 17 L, Est GFR (MDRD) Non-Af 14 L, BUN/Creatinine Ratio 15.2, Glucose 144 H, Calcium 6.9 L 06/27/21 06:35: POC Glucose 138 H Micro: Microbiology 06/23/21 05:15 Blood Culture (Wb) - Anticubital Right Blood Culture - Preliminary No growth in 48 hours. 06/23/21 05:15 Blood Culture (Wb) - Line Draw Blood Culture - Preliminary No growth in 48 hours. 06/23/21 04:40 Mucosa - Nose Respiratory Panel (PCR) - Final Physical Exam Const no apparent distress Constitutional Narrative: Unkempt in appearance. Appears older than stated age. General Appearance: cooperative and comfortable HEENT normocephalic and head/scalp atraumatic Eyes PERRL Neck supple General: trachea midline Chest inspection of chest normal Resp Auscultation: diminished lung sounds; Negative for rales, rhonchi or wheezes Cardio S1 normal heart sound and S2 normal heart sound Rate: regular rate Rhythm: abnormal rhythm GI normal to inspection, nondistended, normoactive bowel sounds Extremity General Extremity: edema right (2+) upper extremity; Negative for clubbing or cyanosis Neuro no focal motor deficits Psych Mood & Affect: flat affect Charges/Coding Procedures Hospitalists Procedures: 77676 Critial Care 1st Hr
[2021-06-27 07:32] LABS: Vancomycin, Random Level 14.7 ug/mL (0.0-15.0)
--- NOTE | 2021-06-27 08:11 | PCM.RX.CS ---
Consult Pharmacy has been consulted to manage selected antiobiotic: Vancomycin Type of Consult: Follow-up Suspected Infection: Pneumonia Prior Doses of Antibiotics Received/Current Regimen: Received 500mg iv x 1 after dialysis on 06.24.21. Labs: Sodium 136 mmol/L (136-145) 06/27/21 04:35 Potassium 3.8 mmol/L (3.5-5.1) 06/27/21 04:35 Chloride 102 mmol/L (98-107) 06/27/21 04:35 Carbon Dioxide 18.0 mmol/L (21.0-32.0) L 06/27/21 04:35 Anion Gap 16 (5-15) H 06/27/21 04:35 BUN 69 mg/dL (7-18) H 06/27/21 04:35 Creatinine 4.53 mg/dL (0.70-1.30) H 06/27/21 04:35 Est GFR (MDRD) Af Amer 17 mL/min (>60) L 06/27/21 04:35 Est GFR (MDRD) Non-Af 14 mL/min (>60) L 06/27/21 04:35 BUN/Creatinine Ratio 15.2 RATIO (10-20) 06/27/21 04:35 Glucose 144 mg/dL (74-106) H 06/27/21 04:35 Random Vancomycin 14.7 ug/mL (0.0-15.0) 06/27/21 06:30 Microbiology: Microbiology 06/23/21 05:15 Blood Culture (Wb) - Anticubital Right Blood Culture - Preliminary No growth in 48 hours. 06/23/21 05:15 Blood Culture (Wb) - Line Draw Blood Culture - Preliminary No growth in 48 hours. 06/23/21 04:40 Mucosa - Nose Respiratory Panel (PCR) - Final Weight used for dosin kg Estimated Creatinine Clearance: ~15ml/min Goal Trough: 15-20 mcg/mL Pharmacy Plan for Drug Dosing: Random level this AM was 14.7. Will give 750mg iv x 1 post dialysis today per protocol. Another random level ordered for Sun06.29.21 in AM pre dialysis. Pharmacy Service will continue to monitor and adjust dosing as required. Follow-Up Labs: Trough Vancomycin - random level 06.29.21@0600
[2021-06-27] MEDS: Acetaminophen 325 MG Tablet 650 MG PO (08:16)
[2021-06-27] MEDS: Sucralfate 1 GM Tablet PO ×4 (08:17→21:23)
--- NOTE | 2021-06-27 08:22 | PN.HOSP_ITS ---
Subjective Subjective No issues overnight, still on Levophed. Hemoglobin seems to have stabilized Objective Data Objective Data Vital Signs: Vital Signs Temp Pulse Resp BP Pulse Ox 96.3 F L 66 12 130/58 H 99 06/27/21 04:00 06/27/21 07:00 06/27/21 07:00 06/27/21 07:00 06/27/21 07:03 Oxygen Flow Rate (L/min) 1 Oxygen Delivery Method Room Air Weight: 166 lb 3.657 oz Body Mass Index (BMI) 22.4 Intake & Output: Intake and Output for Last 24 Hours 06/26/21 06/27/21 06/28/21 03:59 03:59 03:59 Intake Total 1876.88 / 1897.48 1164.57 / 1181.47 167.6 / 167.6 Output Total 0 / 0 0 / 0 0 / 0 Balance 1876.88 / 1897.48 1164.57 / 1181.47 167.6 / 167.6 Lab / Micro Data Result Diagrams: 06/27/21 04:35 06/27/21 04:35 Labs: Laboratory Results - last 24 hr 06/26/21 11:43: POC Glucose 171 H 06/26/21 13:45: Hgb 8.2 L, Hct 23.7 L 06/26/21 17:29: POC Glucose 175 H 06/27/21 00:52: POC Glucose 151 H 06/27/21 04:35: WBC 7.2, RBC 2.65 L, Hgb 7.9 L, Hct 23.5 L, MCV 88.7, MCH 29.8, MCHC 33.6, RDW Std Deviation 48.3 H, RDW Coeff of Rose 15.0 H, Plt Count 165, MPV 9.5 06/27/21 04:35: Sodium 136, Potassium 3.8, Chloride 102, Carbon Dioxide 18.0 L, Anion Gap 16 H, BUN 69 H, Creatinine 4.53 H, Estim Creat Clear Calc 14.96, Est GFR (MDRD) Af Amer 17 L, Est GFR (MDRD) Non-Af 14 L, BUN/Creatinine Ratio 15.2, Glucose 144 H, Calcium 6.9 L 06/27/21 06:30: Random Vancomycin 14.7 06/27/21 06:35: POC Glucose 138 H Micro: Microbiology 06/23/21 05:15 Blood Culture (Wb) - Anticubital Right Blood Culture - Preliminary No growth in 48 hours. 06/23/21 05:15 Blood Culture (Wb) - Line Draw Blood Culture - Preliminary No growth in 48 hours. 06/23/21 04:40 Mucosa - Nose Respiratory Panel (PCR) - Final Physical Exam Const no apparent distress General Appearance: cooperative Orientation / Consciousness: lethargic HEENT normocephalic and moist oral mucous membranes Eyes PERRL, EOMs intact bilaterally and conjunctivae normal Neck supple and no JVD Resp normal respiratory effort, no retractions, no use of accessory muscles and clear to auscultation bilaterally Auscultation: Negative for crackles, rales, rhonchi or wheezes Cardio regular rate, regular rhythm, S1 normal heart sound, S2 normal heart sound and no murmurs Rate: tachycardic GI soft to palpation, non-tender and non-distended; Negative for hepatosplenomegaly Extremity no clubbing, cyanosis or edema Skin no rashes or lesions noted Neuro no focal motor deficits and no sensory deficits noted Psych Appearance: appropriate Mood & Affect: flat affect Assessment & Plan Assessment/Plan (1) Hemorrhagic shock: (2) Gastrointestinal bleeding: QUALIFIERS: GI bleed type/associated pathology: unspecified gastrointestinal hemorrhage type Qualified Code(s): K92.2 - Gastrointestinal hemorrhage, unspecified PLAN: 1. Acute Hemorrhagic Shock secondary to Acute GI Bleed and possibly hematuria w/ resultant Acute Blood Loss Anemia on Chronic Anemia/AOCD and Acute Encephalopathy: Will admit to the ICU, continue consultation with gastroenterology and telecommunicator supervisor, given currently MAP less than 65 will attempt additional aggressive IV fluid bolus, continue planned total 2 u PRBC administration, continue NEP given MAP < 65, maintain on IVFs, will continue IV PPI, n.p.o. status. Holding patient home Eliquis therapy. -06/24/2021: He was transfused 3 units yesterday and still hemoglobin of 6.8 therefore will receive 2 more units today. Levophed is up to 12 mcg/h -06/25/2021: This morning his Levophed has a drip to 20mcg/min, he was transfused another unit this morning and now is down to 14 mcg/min, is also on vasopressin. Repeat hemoglobin this morning when he was 8.9 after his transfusion. -06/26/2021: Hemoglobin is 8 this morning, Levophed is down to 11 mcg/min and vasopressin is off, will check a hemoglobin this afternoon -06/27/2021: Hemoglobin is stable at 7.9. Levophed is down to 9 however still struggling to wean it off further. In discussion with telecommunicator supervisor, will add midodrine today 2. Paroxysmal atrial fibrillation with RVR: EKG in ED w/ atrial fibrillation with RVR. Will maintain on telemetry, obtain cardiac enzyme serial set, obtain magnesium level, obtain ECHO, obtain TSH level, holding patient Eliquis given presentation as noted above #1, given blood pressure will initiate amnio bolus and drip with continued close vital sign monitoring. -06/24/2021: Continue with amiodarone with pressor support - 06/26/2021: He spontaneously converted overnight his amiodarone is off 3. Pneumonia, Possible Aspiration, Possible GN/GP Organism: CXR in the ED w/ infiltrate, concern for aspiration given current presentation, obtained following central line placement, awaiting final read. Will maintain on oxygen with wean as tolerated to room air, PRN albuterol, maintained on IV Zosyn and Vancomycin w/ pending MRSA screen and de-escalation as able, HOB, IS parameters w/ pending sputum cultures and urine antigens. Bld cx x 2 requested. This may po ssibly be related to the hypotension in addition to #1. -06/24/2021, will continue with empiric antibiotics for now, blood cultures are pending -06/26/2021: Cultures are negative 4. Diabetes mellitus type II: Hold oral home regimen, continue home insulin regimen, NPO status w/ q 6 hour accu checks w/ ISS. 5. ESRD: Patient with recent dialysis on day prior to current presentation, Sunday, will consult nephrology. 6. Hypertension: Given presentation holding all patient hypertensive regimen, add back once appropriate. 7. Hyperlipidemia: Continue home statin regimen. 8. Anxiety and depression: We will continue patient home fluoxetine regimen. DVT: SCDs Charges/Coding Visit Charges Inpatient E&M: 07784 Subs Hosp L2
[2021-06-27] MEDS: Epoetin Alfa epbx 10,000 UNITS/ML 8000 UNIT IV (10:15)
--- NOTE | 2021-06-27 10:22 | CASEMGMT ---
Addendum entered by Maxine Davis 06/28/21 11:30: SW participated in ICU rounds, confirmed plan is for pt to return to [facility] when ready. [facility] will continue to follow. CASSI Carmen Original Note: SW participated in ICU rounds. SW called Kylah at [facility] to let her know pt is still in ICU, updates faxed. SW will continue to follow. CASSI Carmen
[2021-06-27] MEDS: Midodrine HCl 5 MG Tablet 10 MG PO ×3 (10:26→16:38)
[2021-06-27] MEDS: 0.9% Saline Lock 10 ML Syringe IV (10:27)
--- NOTE | 2021-06-27 14:12 | DIALYSIS ---
HD x 3.5 hours complete. Ran on 3k bath. No fluid removed. See tx sheet for more details. Report was given to WAQAS Abel.
[2021-06-27 14:26] LABS: Bedside Glucose 117 mg/dL (70-110)
--- NOTE | 2021-06-27 14:27 | PN.RENAL_ITS ---
Subjective Subjective Seen at the end of dialysis treatment, patient complains of feeling thirsty. Denies any pain. Objective Data Objective Data Vital Signs: Vital Signs Temp Pulse Resp BP Pulse Ox 97.5 F L 82 11 L 119/57 L 99 06/27/21 08:00 06/27/21 11:00 06/27/21 11:00 06/27/21 11:30 06/27/21 11:00 Oxygen Flow Rate (L/min) 1 Oxygen Delivery Method Room Air Weight: 75.4 kg Body Mass Index (BMI) 22.4 Intake & Output: Intake and Output for Last 24 Hours 06/25/21 06/26/21 06/27/21 23:59 23:59 23:59 Intake Total 2262.33 / 2267.33 1178.04 / 1294.94 601.25 / 601.25 Output Total 0 / 0 0 / 0 0 / 0 Balance 2262.33 / 2267.33 1178.04 / 1294.94 601.25 / 601.25 Lab / Micro Data Result Diagrams: 06/27/21 04:35 06/27/21 04:35 Labs: Laboratory Results - last 24 hr 06/26/21 17:29: POC Glucose 175 H 06/27/21 00:52: POC Glucose 151 H 06/27/21 04:35: WBC 7.2, RBC 2.65 L, Hgb 7.9 L, Hct 23.5 L, MCV 88.7, MCH 29.8, MCHC 33.6, RDW Std Deviation 48.3 H, RDW Coeff of Rose 15.0 H, Plt Count 165, MPV 9.5 06/27/21 04:35: Sodium 136, Potassium 3.8, Chloride 102, Carbon Dioxide 18.0 L, Anion Gap 16 H, BUN 69 H, Creatinine 4.53 H, Estim Creat Clear Calc 14.96, Est GFR (MDRD) Af Amer 17 L, Est GFR (MDRD) Non-Af 14 L, BUN/Creatinine Ratio 15.2, Glucose 144 H, Calcium 6.9 L 06/27/21 06:30: Random Vancomycin 14.7 06/27/21 06:35: POC Glucose 138 H 06/27/21 12:11: POC Glucose 117 H Micro: Microbiology 06/23/21 05:15 Blood Culture (Wb) - Anticubital Right Blood Culture - Preliminary No growth in 48 hours. 06/23/21 05:15 Blood Culture (Wb) - Line Draw Blood Culture - Preliminary No growth in 48 hours. 06/23/21 04:40 Mucosa - Nose Respiratory Panel (PCR) - Final Physical Exam Narrative General: No apparent distress Respiratory: lung sounds clear anteriorly; no rales, rhonchi noted Cardiovascular: S1-S2, rhythm irregular rate 130s -140s Extremities:+1 pitting edema b/l legs and arms Left forearm AV fistula positive thrill and bruit, accessed for HD Assessment & Plan Assessment/Plan (1) ESRD (end stage renal disease): (2) Hemorrhagic shock: (3) A-fib: (4) Pneumonia: PLAN: -Dialysis schedule Sunday. Patient dialyzed today over 3.5 hours with no UF on a 3K bath. Difficult to remove fluid given significant hypotension. In outpatient setting patient had been taking amlodipine, clonidine, minoxidil and Lopressor (all on hold). Confirmed medications with patient's HD clinic. He had not needed Midodrine. Once Bp improves we will attempt more UF with HD. Old EDW was ~71kg. Today's weight 75.4kg. -The patient received multiple PRBC transfusions. Continue AYANNA with dialysis. -Blood pressure is low, but has improved since admission. Pressor requirement i s less. Midodrine 10 mg 3 times daily started today. -Current medications are reviewed and are appropriately dosed for ESRD patient. -Patient presented with low phosphorus. Phosphorus level improved to 3.0. He is not on phosphorus binders with meals. Continue to monitor calcium and phosphorus level. - Gastric biopsy, ulcer at incisura: Fragments of gastric mucosa with extensive ulceration and associated acute inflammation.Negative for malignancy -On antibiotics vancomycin and Zosyn. BC no growth.
[2021-06-27 17:20] LABS: Bedside Glucose 120 mg/dL (70-110)
[2021-06-27 21:31] LABS: Bedside Glucose 148 mg/dL (70-110)
[2021-06-28] VITALS (21 sets, daily range): BP systolic 92–137; BP diastolic 43–65; PULSE 62–101; RESP 11–27; TEMP 36–36.7; O2SAT 93–100
[2021-06-28 05:50] LABS: Absolute Lymphocyte Count 0.72 X10^3/uL (0.83-4.51); Absolute Neutrophil Count 5.3 X10^3/uL (2.0-7.7); Basophil# 0.02 X10^3/uL; Basophil% 0.3 % (0-1); Eosinophil# 0.16 X10^3/uL; Eosinophils% 2.4 % (0-5); Hematocrit 21.4 % (40-54); Hemoglobin 7.4 g/dL (13.0-16.5); Lymphocyte # 0.72 X10^3/ul (0.83-4.51); Lymphocyte % 10.9 % (19-41); Mean Corp Hgb Conc 34.6 g/dL (32-36); Mean Corpuscular Hgb 30.6 pg (27.0-32.0); Mean Corpuscular Volume 88.4 fL (80-94); Mean Platelet Vol. 9.7 fl (6.2-12.0); Monocyte# 0.36 X10^3/uL; Monocyte% 5.5 % (0-10); NRBC Flagged by Analyzer 0 % (0-5); Neutrophil # 5.28 X10^3/uL (2.7-7.7); Neutrophil % 80.3 % (47-70); Platelet Count 148 K/mm3 (150-450); RBC Distribution Width SD 49.1 fl (35.1-43.9); Red Blood Count 2.42 M/mm3 (4.6-6.2); White Blood Count 6.6 K/mm3 (4.4-11.0)
[2021-06-28 06:04] LABS: ALB/GLOB Ratio 0.3 RATIO (0.9-2.4); AST(SGOT) 7 U/L (15-37); Alanine Aminotransfer ALT/SGPT 10 U/L (16-61); Albumin, Serum 0.8 g/dL (3.2-5.0); Alkaline Phosphatase 60 U/L (45-117); Anion Gap 11 (5-15); BUN 29 mg/dL (7-18); BUN/Creat Ratio 10.3 RATIO (10-20); Calcium,Total 6.6 mg/dL (8.5-10.1); Chloride 101 mmol/L (98-107); Creatinine, Serum 2.81 mg/dL (0.70-1.30); EST Glomerular Filtration Rate 24 mL/min (>60); Est Glom Filt Rate - Afr Amer 29 mL/min (>60); Estimated Creatinine Clearance 23.53 ml/min; Globulin 2.8 g/dL (2.2-4.2); Glucose 96 mg/dL (74-106); Potassium 3.1 mmol/L (3.5-5.1); Protein, Total 3.6 g/dL (6.4-8.2); Sodium Level 138 mmol/L (136-145)
[2021-06-28] MEDS: Sucralfate 1 GM Tablet PO ×4 (06:30→22:32)
[2021-06-28 06:35] LABS: Bedside Glucose 83 mg/dL (70-110)
--- NOTE | 2021-06-28 06:44 | PN.CC_ITS ---
Assessment & Plan Assessment/Plan (1) Hemorrhagic shock: PLAN: RECOMMENDATIONS: 1. Continue midodrine for now. Likely wean over the next 5 to 7 days 2. Continue to monitor H&H and transfuse if hemoglobin drops below 7 g/dL. 3. Continue PPI drip for current bag, but likely transition to twice daily tomorrow 4. Continue hemodialysis support per nephrology recommendations. 5. Continue empiric antimicrobials to complete a scheduled course. 6. Okay to leave the intensive care unit from my perspective IMPRESSIONS: 1. Hemorrhagic shock The patient presented with acute blood loss anemia, with a drop in hemoglobin from 12 on June 15 to a hemoglobin of 6.8 on presentation. The patient had been on systemic anticoagulation with Eliquis. He did receive Kcentra and vitamin K. The patient was also started on PPI therapy. To date, he has received 8 unit of packed red blood cells. The patient was scoped by GI and interventions performed. The patient is clinically improving. Patient was able to be discontinued off of Levophed after addition of midodrine therapy. We will likely continue midodrine and wean over the next 5 to 7 days if possible. No active blood loss has been noted. 2. Recent diagnosis of COVID-19/residual bilateral infiltrates on chest imaging It is unclear whether the patient's chest imaging study demonstrates an acute process versus residual findings from his prior Covid infection. I do not have any outside chest imaging studies to be able to compare to. Anticipate continuation of antimicrobials until patient can be taken off of pressors at a minimum. Occult infection can happen in end-stage renal disease. 3. Paroxysmal atrial fibrillation with RVR Initial troponin was unremarkable. Echocardiogram revealed intact systolic function. The patient has been weaned from amiodarone and is now in normal sinus rhythm. 4. End-stage renal disease on hemodialysis Continue hemodialysis support per nephrology recommendations. Chronic dialysis Sunday, Sunday and Sunday. Defer to nephrology on potassium supplementation. No EKG changes noted. 5. Diabetes mellitus/hypertension/hyperlipidemia/anxiety/depression Complicates care, management, recovery and prognosis. Continue to hold home antihypertensives for now. Subjective Subjective Patient did well overnight. Patient has been off Levophed since yesterday. Patient was able to tolerate hemodialysis yesterday, but no fluid was removed. Patient did have a bowel movement. Patient remains on room air and tolerating well. Objective Data Objective Data Vital Signs: Vital Signs Temp Pulse Resp BP Pulse Ox 36.4 C L 72 15 122/59 H 94 06/28/21 04:00 06/28/21 06:00 06/28/21 06:00 06/28/21 06:00 06/28/21 06:00 Oxygen Flow Rate (L/min) 1 Oxygen Delivery Method Room Air Weight: 68.991 kg Body Mass Index (BMI) 22.4 Intake & Output: Intake and Output for Last 24 Hours 06/26/21 06/27/21 06/28/21 23:59 23:59 23:59 Intake Total 1178.04 / 1294.94 1395.42 / 1395.42 148.5 / 148.5 Output Total 0 / 0 0 / 0 Balance 1178.04 / 1294.94 1395.42 / 1395.42 148.5 / 148.5 Lab / Micro Data Result Diagrams: 06/28/21 04:00 06/28/21 04:00 Labs: Laboratory Results - last 24 hr 06/27/21 06:30: Random Vancomycin 14.7 06/27/21 12:11: POC Glucose 117 H 06/27/21 16:43: POC Glucose 120 H 06/27/21 21:23: POC Glucose 148 H 06/28/21 04:00: WBC 6.6, RBC 2.42 L, Hgb 7.4 L, Hct 21.4 L, MCV 88.4, MCH 30.6, MCHC 34.6, RDW Std Deviation 49.1 H, RDW Coeff of Rose 15.0 H, Plt Count 148 L, MPV 9.7, Immature Gran % (Auto) 0.600, Neut % (Auto) 80.3 H, Lymph % (Auto) 10.9 L, Cooper % (Auto) 5.5, Eos % (Auto) 2.4, Baso % (Auto) 0.3, Absolute Neuts (auto) 5.3, Absolute Lymphs (auto) 0.72 L, Nucleated RBC % 0 06/28/21 04:00: Sodium 138, Potassium 3.1 L, Chloride 101, Carbon Dioxide 26.0, Anion Gap 11, BUN 29 H, Creatinine 2.81 H, Estim Creat Clear Calc 23.53, Est GFR (MDRD) Af Amer 29 L, Est GFR (MDRD) Non-Af 24 L, BUN/Creatinine Ratio 10.3, Glucose 96, Calcium 6.6 L, Total Bilirubin 0.30, AST 7 L, ALT 10 L, Alkaline Phosphatase 60, Total Protein 3.6 L, Albumin 0.8 L, Globulin 2.8, Albumin /Globulin Ratio 0.3 L 06/28/21 06:29: POC Glucose 83 Micro: Microbiology 06/23/21 05:15 Blood Culture (Wb) - Anticubital Right Blood Culture - Preliminary No growth in 48 hours. 06/23/21 05:15 Blood Culture (Wb) - Line Draw Blood Culture - Preliminary No growth in 48 hours. 06/23/21 04:40 Mucosa - Nose Respiratory Panel (PCR) - Final Physical Exam Const no apparent distress General Appearance: cooperative, comfortable and well developed HEENT normocephalic and moist oral mucous membranes Eyes PERRL, EOMs intact bilaterally and conjunctivae normal Neck supple and no JVD Resp normal respiratory effort, no retractions, no use of accessory muscles and clear to auscultation bilaterally Auscultation: Negative for crackles, rales, rhonchi or wheezes Cardio regular rate, regular rhythm, S1 normal heart sound, S2 normal heart sound and no murmurs GI soft to palpation, non-tender and non-distended; Negative for hepatosplenomegaly Extremity no clubbing, cyanosis or edema Skin no rashes or lesions noted Neuro no focal motor deficits and no sensory deficits noted Psych Appearance: appropriate Mood & Affect: flat affect Charges/Coding Visit Charges Inpatient E&M: 38608 Subs Hosp L3
[2021-06-28] MEDS: Midodrine HCl 5 MG Tablet 10 MG PO ×3 (08:28→17:04)
[2021-06-28] MEDS: CHLORHEXIDINE GLUC 2% CLOTH 1 EACH TOWELETTE TOPICAL (08:28)
--- NOTE | 2021-06-28 10:16 | PCM.PN.HOSP ---
Subjective Subjective Doing well, no issues overnight. He has been off of Levophed with the addition of midodrine and he was able to tolerate dialysis yesterday with this. Objective Data Objective Data Vital Signs: Vital Signs Temp Pulse Resp BP Pulse Ox 98.0 F 70 11 L 127/55 H 100 06/28/21 08:00 06/28/21 10:00 06/28/21 10:00 06/28/21 10:00 06/28/21 10:00 Oxygen Flow Rate (L/min) 1 Oxygen Delivery Method Room Air Weight: 152 lb 1.6 oz Body Mass Index (BMI) 22.4 Intake & Output: Intake and Output for Last 24 Hours 06/27/21 06/28/21 06/29/21 03:59 03:59 03:59 Intake Total 1164.57 / 1181.47 1326.32 / 1326.32 120 / 120 Output Total 0 / 0 0 / 0 Balance 1164.57 / 1181.47 1326.32 / 1326.32 120 / 120 Lab / Micro Data Result Diagrams: 06/28/21 04:00 06/28/21 04:00 Labs: Laboratory Results - last 24 hr 06/27/21 12:11: POC Glucose 117 H 06/27/21 16:43: POC Glucose 120 H 06/27/21 21:23: POC Glucose 148 H 06/28/21 04:00: WBC 6.6, RBC 2.42 L, Hgb 7.4 L, Hct 21.4 L, MCV 88.4, MCH 30.6, MCHC 34.6, RDW Std Deviation 49.1 H, RDW Coeff of Rose 15.0 H, Plt Count 148 L, MPV 9.7, Immature Gran % (Auto) 0.600, Neut % (Auto) 80.3 H, Lymph % (Auto) 10.9 L, [place] % (Auto) 5.5, Eos % (Auto) 2.4, Baso % (Auto) 0.3, Absolute Neuts (auto) 5.3, Absolute Lymphs (auto) 0.72 L, Nucleated RBC % 0 06/28/21 04:00: Sodium 138, Potassium 3.1 L, Chloride 101, Carbon Dioxide 26.0, Anion Gap 11, BUN 29 H, Creatinine 2.81 H, Estim Creat Clear Calc 23.53, Est GFR (MDRD) Af Amer 29 L, Est GFR (MDRD) Non-Af 24 L, BUN/Creatinine Ratio 10.3, Glucose 96, Calcium 6.6 L, Total Bilirubin 0.30, AST 7 L, ALT 10 L, Alkaline Phosphatase 60, Total Protein 3.6 L, Albumin 0.8 L, Globulin 2.8, Albumin/Globulin Ratio 0.3 L 06/28/21 06:29: POC Glucose 83 Micro: Microbiology 06/23/21 05:15 Blood Culture (Wb) - Anticubital Right Blood Culture - Final No growth in 5 days. 06/23/21 05:15 Blood Culture (Wb) - Line Draw Blood Culture - Final No growth in 5 days. 06/23/21 04:40 Mucosa - Nose Respiratory Panel (PCR) - Final Physical Exam Const alert and no apparent distress General Appearance: cooperative HEENT normocephalic and moist oral mucous membranes Eyes PERRL, EOMs intact bilaterally and conjunctivae normal Neck supple and no JVD Resp normal respiratory effort, no retractions, no use of accessory muscles and clear to auscultation bilaterally Auscultation: Negative for crackles, rales, rhonchi or wheezes Cardio regular rate, regular rhythm, S1 normal heart sound, S2 normal heart sound and no murmurs Rate: tachycardic GI soft to palpation, non-tender and non-distended; Negative for hepatosplenomegaly Extremity no clubbing, cyanosis or edema Skin no rashes or lesions noted Neuro no focal motor deficits and no sensory deficits noted Psych Appearance: appropriate Mood & Affect: flat affect Assessment & Plan Assessment/Plan (1) Hemorrhagic shock: (2) Gastrointestinal bleeding: QUALIFIERS: GI bleed type/associated pathology: unspecified gastrointestinal hemorrhage type Qualified Code(s): K92.2 - Gastrointestinal hemorrhage, unspecified PLAN: 1. Acute Hemorrhagic Shock secondary to Acute GI Bleed and possibly hematuria w/ resultant Acute Blood Loss Anemia on Chronic Anemia/AOCD and Acute Encephalopathy: Will admit to the ICU, continue consultation with gastroenterology and maintenance operator, given currently MAP less than 65 will attempt additional aggressive IV fluid bolus, continue planned total 2 u PRBC administration, continue NEP given MAP < 65, maintain on IVFs, will continue IV PPI, n.p.o. status. Holding patient home Eliquis therapy. -06/24/2021: He was transfused 3 units yesterday and still hemoglobin of 6.8 therefore will receive 2 more units today. Levophed is up to 12 mcg/h -06/25/2021: This morning his Levophed has a drip to 20mcg/min, he was transfused another unit this morning and now is down to 14 mcg/min, is also on vasopressin. Repeat hemoglobin this morning when he was 8.9 after his transfusion. -06/26/2021: Hemoglobin is 8 this morning, Levophed is down to 11 mcg/min and vasopressin is off, will check a hemoglobin this afternoon -06/27/2021: Hemoglobin is stable at 7.9. Levophed is down to 9 however still struggling to wean it off further. In discussion with maintenance operator, will add midodrine today -06/28/2021: Hemoglobin is 7.4, he is off of Levophed with the addition of midodrine. We will recheck his hemoglobin in the morning and if at or below 7, will transfuse as he has been having difficulty maintaining his hemoglobin 2. Paroxysmal atrial fibrillation with RVR: EKG in ED w/ atrial fibrillation with RVR. Will maintain on telemetry, obtain cardiac enzyme serial set, obtain magnesium level, obtain ECHO, obtain TSH level, holding patient Eliquis given presentation as noted above #1, given blood pressure will initiate amnio bolus and drip with continued close vital sign monitoring. -06/24/2021: Continue with amiodarone with pressor support - 06/26/2021: He spontaneously converted overnight his amiodarone is off 3. Pneumonia, Possible Aspiration, Possible GN/GP Organism: CXR in the ED w/ infiltrate, concern for aspiration given current presentation, obtained following central line placement, awaiting final read. Will maintain on oxygen with wean as tolerated to room air, PRN albuterol, maintained on IV Zosyn and Vancomycin w/ pending MRSA screen and de-escalation as able, HOB, IS parameters w/ pending sputum cultures and urine antigens. Bld cx x 2 requested. This may possibly be related to the hypotension in addition to #1. -06/24/2021, will continue with empiric antibiotics for now, blood cultures are pending -06/26/2021: Cultures are negative 4. Diabetes mellitus type II: Hold oral home regimen, continue home insulin regimen, NPO status w/ q 6 hour accu checks w/ ISS. 5. ESRD: Patient with recent dialysis on day prior to current presentation, Sunday, will consult nephrology. 6. Hypertension: Given presentation holding all patient hypertensive regimen, add back once appropriate. 7. Hyperlipidemia: Continue home statin regimen. 8. Anxiety and depression: We will continue patient home fluoxetine regimen. DVT: SCDs Charges/Coding Visit Charges Inpatient E&M: 07300 Subs Hosp L2
[2021-06-28 11:26] LABS: Bedside Glucose 113 mg/dL (70-110)
--- NOTE | 2021-06-28 12:51 | PN.RENAL_ITS ---
Subjective Subjective Sitting in chair. Denies any complaints. Objective Data Objective Data Vital Signs: Vital Signs Temp Pulse Resp BP Pulse Ox 97.1 F L 101 H 27 H 116/61 100 06/28/21 12:00 06/28/21 12:00 06/28/21 12:00 06/28/21 12:00 06/28/21 12:00 Oxygen Flow Rate (L/min) 1 Oxygen Delivery Method Room Air Weight: 68.991 kg Body Mass Index (BMI) 22.4 Intake & Output: Intake and Output for Last 24 Hours 06/26/21 06/27/21 06/28/21 23:59 23:59 23:59 Intake Total 1178.04 / 1294.94 1395.42 / 1395.42 488.5 / 488.5 Output Total 0 / 0 0 / 0 Balance 1178.04 / 1294.94 1395.42 / 1395.42 488.5 / 488.5 Lab / Micro Data Result Diagrams: 06/28/21 04:00 06/28/21 04:00 Labs: Laboratory Results - last 24 hr 06/27/21 12:11: POC Glucose 117 H 06/27/21 16:43: POC Glucose 120 H 06/27/21 21:23: POC Glucose 148 H 06/28/21 04:00: WBC 6.6, RBC 2.42 L, Hgb 7.4 L, Hct 21.4 L, MCV 88.4, MCH 30.6, MCHC 34.6, RDW Std Deviation 49.1 H, RDW Coeff of Rose 15.0 H, Plt Count 148 L, MPV 9.7, Immature Gran % (Auto) 0.600, Neut % (Auto) 80.3 H, Lymph % (Auto) 10.9 L, [place] % (Auto) 5.5, Eos % (Auto) 2.4, Baso % (Auto) 0.3, Absolute Neuts (auto) 5.3, Absolute Lymphs (auto) 0.72 L, Nucleated RBC % 0 06/28/21 04:00: Sodium 138, Potassium 3.1 L, Chloride 101, Carbon Dioxide 26.0, Anion Gap 11, BUN 29 H, Creatinine 2.81 H, Estim Creat Clear Calc 23.53, Est GFR (MDRD) Af Amer 29 L, Est GFR (MDRD) Non-Af 24 L, BUN/Creatinine Ratio 10.3, Glucose 96, Calcium 6.6 L, Total Bilirubin 0.30, AST 7 L, ALT 10 L, Alkaline Phosphatase 60, Total Protein 3.6 L, Albumin 0.8 L, Globulin 2.8, Albumin/Globulin Ratio 0.3 L 06/28/21 06:29: POC Glucose 83 06/28/21 11:08: POC Glucose 113 H Micro: Microbiology 06/23/21 05:15 Blood Culture (Wb) - Anticubital Right Blood Culture - Final No growth in 5 days. 06/23/21 05:15 Blood Culture (Wb) - Line Draw Blood Culture - Final No growth in 5 days. 06/23/21 04:40 Mucosa - Nose Respiratory Panel (PCR) - Final Physical Exam Narrative General: No apparent distress Respiratory: lung sounds clear anteriorly; no rales or rhonchi noted Cardiovascular: S1-S2, rhythm irregular rate 130s -140s Extremities:+1 pitting edema b/l legs and arms Left forearm AV fistula positive thrill and bruit, accessed for HD Assessment & Plan Assessment/Plan (1) ESRD (end stage renal disease): (2) Hemorrhagic shock: (3) A-fib: (4) Pneumonia: PLAN: -Dialysis schedule Sunday. No acute indication for INTERNET MARKETING ANALYST today, plan for dialysis tomorrow over 3.5 hrs/3kbath with UF as pt/bp tolerates. Attempt to remove fluid gently with HD, blood pressures have improved. He is off IV pressors. We will give midodrine 20 mg at start of HD tomorrow. Difficult to remove fluid given significant hypotension. In outpatient setting patient had been taking amlodipine, clonidine, minoxidil and Lopressor (all on hold). Confirmed medications with patient's HD clinic. He had not needed Midodrine in the past. Old EDW was ~71kg -The patient received multiple PRBC transfusions. Continue AYANNA with dialysis, ordered for tomorrow -Blood pressure is low, but has improved and he is off pressors. Midodrine 10 mg 3 times daily started. Will give 20mg midodrine at start of HD tomorrow. -Current medications are reviewed and are appropriately dosed for ESRD patient. -Patient presented with low phosphorus. Phosphorus level improved to 3.0. He is not on phosphorus binders with meals. Continue to monitor calcium and phosphorus level. - Gastric biopsy, ulcer at incisura: Fragments of gastric mucosa with extensive ulceration and associated acute inflammation.Negative for malignancy -On antibiotics vancomycin and Zosyn. BC no growth.
[2021-06-28] MEDS: Acetaminophen 325 MG Tablet 650 MG PO (12:58)
[2021-06-28] MEDS: Ensure Clear 120 ML Liquid PO ×2 (12:59→22:32)
--- NOTE | 2021-06-28 16:49 | CHAPLAIN ---
Type of Pastoral Visit _x__ Initial Visit ___ Follow-up Visit ___ On-call Visit ___ General Patient Visit ___ Spiritual Assessment ___ Family Conference ___ Bereavement ___ Rapid Response ___ Code Blue ___ Other (describe below) Pastoral Care Referral From _x__ Patient ___ Family ___ Nurse ___ Physician ___ Inpatient Care Manager Rn ___ Look Out Tower Fire Watcher ___ Other (describe below) Sacrament/Intervention _x__ Active listening ___ Anointing ___ Shinto ___ Bereavement ___ Communion ___ Katherine exploration ___ ___ Life review _x__ Prayer ___ Reconciliation ___ Sacrament of Sick _x__ Supportive presence ___ Wedding ___ Other (describe below) Pastoral Comments patient expresses the difficulty of last two months and his illness; pt states he was greatly encouraged to see his today on first visit in a long time; pt is member of [employer] and welcomed prayer support
[2021-06-28] MEDS: Insulin Lispro 100 UNIT/ML INSULN.PEN SC (16:58)
[2021-06-28] MEDS: Juven (unflavored) Packet 1 PACKET PO (17:05)
[2021-06-28 17:15] LABS: Bedside Glucose 156 mg/dL (70-110)
[2021-06-28 22:40] LABS: Bedside Glucose 135 mg/dL (70-110)
[2021-06-29] VITALS (11 sets, daily range): BP systolic 111–151; BP diastolic 60–73; PULSE 63–89; RESP 11–18; TEMP 36.2–36.6; O2SAT 96–100
[2021-06-29 05:12] LABS: Absolute Lymphocyte Count 0.81 X10^3/uL (0.83-4.51); Basophil# 0.04 X10^3/uL; Basophil% 0.6 % (0-1); Eosinophil# 0.21 X10^3/uL; Eosinophils% 3.2 % (0-5); Hematocrit 22.3 % (40-54); Hemoglobin 7.8 g/dL (13.0-16.5); Lymphocyte # 0.81 X10^3/ul (0.83-4.51); Lymphocyte % 12.4 % (19-41); Mean Corpuscular Hgb 30.6 pg (27.0-32.0); Mean Corpuscular Volume 87.5 fL (80-94); Monocyte# 0.42 X10^3/uL; Monocyte% 6.4 % (0-10); NRBC Flagged by Analyzer 0 % (0-5); Neutrophil # 5.01 X10^3/uL (2.7-7.7); Neutrophil % 76.8 % (47-70); Platelet Count 164 K/mm3 (150-450); RBC Distribution Width CV 15.3 % (11.6-14.6); RBC Distribution Width SD 48.7 fl (35.1-43.9); Red Blood Count 2.55 M/mm3 (4.6-6.2); White Blood Count 6.5 K/mm3 (4.4-11.0)
[2021-06-29 05:33] LABS: Phosphorus 2.3 mg/dL (2.5-4.9)
[2021-06-29 05:34] LABS: Vancomycin, Random Level 19.4 ug/mL (0.0-15.0)
[2021-06-29 05:36] LABS: Anion Gap 9 (5-15); BUN 35 mg/dL (7-18); BUN/Creat Ratio 9.7 RATIO (10-20); Calcium,Total 6.7 mg/dL (8.5-10.1); Chloride 101 mmol/L (98-107); EST Glomerular Filtration Rate 18 mL/min (>60); Est Glom Filt Rate - Afr Amer 22 mL/min (>60); Estimated Creatinine Clearance 18.37 ml/min; Glucose 117 mg/dL (74-106); Potassium 2.7 mmol/L (3.5-5.1); Sodium Level 137 mmol/L (136-145)
[2021-06-29] MEDS: Sucralfate 1 GM Tablet PO ×3 (06:20→21:25)
[2021-06-29] MEDS: 0.9% Saline Lock 10 ML Syringe IV ×2 (07:00→11:19)
--- NOTE | 2021-06-29 07:18 | PCM.PN.INT ---
Assessment & Plan Assessment/Plan (1) Hemorrhagic shock: PLAN: RECOMMENDATIONS: 1. Continue midodrine for now. If tolerates hemodialysis, could transition to twice daily 2. Continue to monitor H&H and transfuse if hemoglobin drops below 7 g/dL. 3. PPI IV twice daily until discharge, then p.o. 4. Await results of hemodialysis. Continue hemodialysis support per nephrology recommendations. 5. Continue empiric antimicrobials to complete a scheduled course. 6. Hemodynamically stable on room air. Will sign off from a critical care perspective IMPRESSIONS: 1. Hemorrhagic shock The patient presented with acute blood loss anemia, with a drop in hemoglobin from 12 on June 15 to a hemoglobin of 6.8 on presentation. The patient had been on systemic anticoagulation with Eliquis. He did receive Kcentra and vitamin K. The patient was also started on PPI therapy. To date, he has received 8 unit of packed red blood cells. The patient was scoped by GI and interventions performed. The patient is clinically improving. Patient was able to be discontinued off of Levophed after addition of midodrine therapy. Midodrine can likely be weaned to twice daily if patient is able to tolerate hemodialysis. No active blood loss has been noted. Patient hemodynamically stable on room air. Will sign off from a critical care perspective 2. Recent diagnosis of COVID-19/residual bilateral infiltrates on chest imaging It is unclear whether the patient's chest imaging study demonstrates an acute process versus residual findings from his prior Covid infection. I do not have any outside chest imaging studies to be able to compare to. Anticipate continuation of antimicrobials until patient can be taken off of pressors at a minimum. Occult infection can happen in end-stage renal disease. 3. Paroxysmal atrial fibrillation with RVR Initial troponin was unremarkable. Echocardiogram revealed intact systolic function. The patient has been weaned from amiodarone and is now in normal sinus rhythm. 4. End-stage renal disease on hemodialysis Continue hemodialysis support per nephrology recommendations. Chronic dialysis Sunday, Sunday and Sunday. Defer to nephrology on potassium supplementation. No EKG changes noted. 5. Diabetes mellitus/hypertension/hyperlipidemia/anxiety/depression Complicates care, management, recovery and prognosis. Continue to hold home antihypertensives for now. Subjective Subjective Patient did okay overnight. No acute issues were reported. Patient overall feels subjectively unchanged compared to previous. Patient's blood pressure has been stable. No further bleeding has been reported. Patient remains on room air. Objective Data Objective Data Vital Signs: Vital Signs Temp Pulse Resp BP Pulse Ox 36.6 C 68 12 146/60 H 99 06/29/21 05:00 06/29/21 05:00 06/29/21 05:00 06/29/21 05:00 06/29/21 05:00 Oxygen Flow Rate (L/min) 1 Oxygen Delivery Method Room Air Weight: 68.8 kg Body Mass Index (BMI) 22.4 Intake & Output: Intake and Output for Last 24 Hours 06/27/21 06/28/21 06/29/21 23:59 23:59 23:59 Intake Total 1395.42 / 1395.42 638.5 / 638.5 286 / 286 Output Total 0 / 0 Balance 1395.42 / 1395.42 638.5 / 638.5 286 / 286 Lab / Micro Data Result Diagrams: 06/29/21 05:05 06/29/21 05:05 Labs: Laboratory Results - last 24 hr 06/28/21 11:08: POC Glucose 113 H 06/28/21 16:57: POC Glucose 156 H 06/28/21 22:29: POC Glucose 135 H 06/29/21 05:05: WBC 6.5, RBC 2.55 L, Hgb 7.8 L, Hct 22.3 L, MCV 87.5, MCH 30.6, MCHC 35.0, RDW Std Deviation 48.7 H, RDW Coeff of Rose 15.3 H, Plt Count 164, MPV 9.0, Immature Gran % (Auto) 0.600, Neut % (Auto) 76.8 H, Lymph % (Auto) 12.4 L, [place] % (Auto) 6.4, Eos % (Auto) 3.2, Baso % (Auto) 0.6, Absolute Neuts (auto) 5.0, Absolute Lymphs (auto) 0.81 L, Nucleated RBC % 0 06/29/21 05:05: Sodium 137, Potassium 2.7 L*, Chloride 101, Carbon Dioxide 27.0, Anion Gap 9, BUN 35 H, Creatinine 3.60 H, Estim Creat Clear Calc 18.37, Est GFR (MDRD) Af Amer 22 L, Est GFR (MDRD) Non-Af 18 L, BUN/Creatinine Ratio 9.7 L, Glucose 117 H, Calcium 6.7 L 06/29/21 05:05: Phosphorus 2.3 L 06/29/21 05:05: Random Vancomycin 19.4 H Micro: Microbiology 06/23/21 05:15 Blood Culture (Wb) - Anticubital Right Blood Culture - Final No growth in 5 days. 06/23/21 05:15 Blood Culture (Wb) - Line Draw Blood Culture - Final No growth in 5 days. 06/23/21 04:40 Mucosa - Nose Respiratory Panel (PCR) - Final Physical Exam Const no apparent distress General Appearance: cooperative, comfortable and well developed HEENT normocephalic and moist oral mucous membranes Eyes PERRL, EOMs intact bilaterally and conjunctivae normal Neck supple and no JVD Resp normal respiratory effort, no retractions, no use of accessory muscles and clear to auscultation bilaterally Auscultation: Negative for crackles, rales, rhonchi or wheezes Cardio regular rate, regular rhythm, S1 normal heart sound, S2 normal heart sound and no murmurs GI soft to palpation, non-tender and non-distended; Negative for hepatosplenomegaly Extremity no clubbing, cyanosis or edema Skin no rashes or lesions noted Neuro no focal motor deficits and no sensory deficits noted Psych Appearance: appropriate Mood & Affect: flat affect Charges/Coding Visit Charges Inpatient E&M: 90663 Subs Hosp L2
[2021-06-29 07:51] LABS: Magnesium 1.5 mg/dL (1.6-2.6)
--- NOTE | 2021-06-29 08:03 | PCM.RX.CS ---
Consult Pharmacy has been consulted to manage selected antiobiotic: Vancomycin Type of Consult: Follow-up Suspected Infection: Pneumonia Prior Doses of Antibiotics Received/Current Regimen: 750MG IV X 1 ON 06.27.21 Labs: Sodium 137 mmol/L (136-145) 06/29/21 05:05 Potassium 2.7 mmol/L (3.5-5.1) L* 06/29/21 05:05 Chloride 101 mmol/L (98-107) 06/29/21 05:05 Carbon Dioxide 27.0 mmol/L (21.0-32.0) 06/29/21 05:05 Anion Gap 9 (5-15) 06/29/21 05:05 BUN 35 mg/dL (7-18) H 06/29/21 05:05 Creatinine 3.60 mg/dL (0.70-1.30) H 06/29/21 05:05 Est GFR (MDRD) Af Amer 22 mL/min (>60) L 06/29/21 05:05 Est GFR (MDRD) Non-Af 18 mL/min (>60) L 06/29/21 05:05 BUN/Creatinine Ratio 9.7 RATIO (10-20) L 06/29/21 05:05 Glucose 117 mg/dL (74-106) H 06/29/21 05:05 Random Vancomycin 19.4 ug/mL (0.0-15.0) H 06/29/21 05:05 Microbiology: Microbiology 06/23/21 05:15 Blood Culture (Wb) - Anticubital Right Blood Culture - Final No growth in 5 days. 06/23/21 05:15 Blood Culture (Wb) - Line Draw Blood Culture - Final No growth in 5 days. 06/23/21 04:40 Mucosa - Nose Respiratory Panel (PCR) - Final Weight used for dosin kg Estimated Creatinine Clearance: ~18ml/min Goal Trough: 15-20 mcg/mL Pharmacy Plan for Drug Dosing: Today's random level was 19.4. Will give 500mg iv x 1 post dialysis today per protocol. Random level ordered for pre-dialysis on 07.01.21. Pharmacy Service will continue to monitor and adjust dosing as required. Follow-Up Labs: Trough Vancomycin - Random level 07.01.21@06
[2021-06-29] MEDS: Juven (unflavored) Packet 1 PACKET PO ×2 (08:28→19:06)
--- NOTE | 2021-06-29 09:28 | PN.HOSP_ITS ---
Subjective Subjective Feels weak but otherwise doing okay. He is tolerating a little bit of a diet and had a bowel movement last night that was nonbloody. Objective Data Objective Data Vital Signs: Vital Signs Temp Pulse Resp BP Pulse Ox 97.8 F 70 12 146/60 H 99 06/29/21 05:00 06/29/21 08:00 06/29/21 05:00 06/29/21 05:00 06/29/21 05:00 Oxygen Flow Rate (L/min) 1 Oxygen Delivery Method Room Air Weight: 151 lb 10.848 oz Body Mass Index (BMI) 22.4 Intake & Output: Intake and Output for Last 24 Hours 06/28/21 06/29/21 06/30/21 03:59 03:59 03:59 Intake Total 1326.32 / 1326.32 610 / 610 166 / 166 Output Total 0 / 0 Balance 1326.32 / 1326.32 610 / 610 166 / 166 Lab / Micro Data Result Diagrams: 06/29/21 05:05 06/29/21 05:05 Labs: Laboratory Results - last 24 hr 06/28/21 11:08: POC Glucose 113 H 06/28/21 16:57: POC Glucose 156 H 06/28/21 22:29: POC Glucose 135 H 06/29/21 05:05: WBC 6.5, RBC 2.55 L, Hgb 7.8 L, Hct 22.3 L, MCV 87.5, MCH 30.6, MCHC 35.0, RDW Std Deviation 48.7 H, RDW Coeff of Rose 15.3 H, Plt Count 164, MPV 9.0, Immature Gran % (Auto) 0.600, Neut % (Auto) 76.8 H, Lymph % (Auto) 12.4 L, [place] % (Auto) 6.4, Eos % (Auto) 3.2, Baso % (Auto) 0.6, Absolute Neuts (auto) 5.0, Absolute Lymphs (auto) 0.81 L, Nucleated RBC % 0 06/29/21 05:05: Sodium 137, Potassium 2.7 L*, Chloride 101, Carbon Dioxide 27.0, Anion Gap 9, BUN 35 H, Creatinine 3.60 H, Estim Creat Clear Calc 18.37, Est GFR (MDRD) Af Amer 22 L, Est GFR (MDRD) Non-Af 18 L, BUN/Creatinine Ratio 9.7 L, Glucose 117 H, Calcium 6.7 L 06/29/21 05:05: Phosphorus 2.3 L 06/29/21 05:05: Random Vancomycin 19.4 H 06/29/21 05:05: Magnesium 1.5 L Micro: Microbiology 06/23/21 05:15 Blood Culture (Wb) - Anticubital Right Blood Culture - Final No growth in 5 days. 06/23/21 05:15 Blood Culture (Wb) - Line Draw Blood Culture - Final No growth in 5 days. 06/23/21 04:40 Mucosa - Nose Respiratory Panel (PCR) - Final Physical Exam Const alert and no apparent distress General Appearance: cooperative HEENT normocephalic and moist oral mucous membranes Eyes PERRL, EOMs intact bilaterally and conjunctivae normal Neck supple and no JVD Resp normal respiratory effort, no retractions, no use of accessory muscles and clear to auscultation bilaterally Auscultation: Negative for crackles, rales, rhonchi or wheezes Cardio regular rate, regular rhythm, S1 normal heart sound, S2 normal heart sound and no murmurs GI soft to palpation, non-tender and non-distended; Negative for hepatosplenomegaly Extremity no clubbing, cyanosis or edema Skin no rashes or lesions noted Neuro no focal motor deficits and no sensory deficits noted Psych Appearance: appropriate Mood & Affect: flat affect Assessment & Plan Assessment/Plan (1) Hemorrhagic shock: (2) Gastrointestinal bleeding: QUALIFIERS: GI bleed type/associated pathology: unspecified gastrointestinal hemorrhage type Qualified Code(s): K92.2 - Gastrointestinal hemorrhage, unspecified PLAN: 1. Acute Hemorrhagic Shock secondary to Acute GI Bleed and possibly hematuria w/ resultant Acute Blood Loss Anemia on Chronic Anemia/AOCD and Acute Encephalopathy: Will admit to the ICU, continue consultation with gastroenterology and business continuity analyst, given currently MAP less than 65 will attempt additional aggressive IV fluid bolus, continue planned total 2 u PRBC administration, continue NEP given MAP < 65, maintain on IVFs, will continue IV PPI, n.p.o. status. Holding patient home Eliquis therapy. -06/24/2021: He was transfused 3 units yesterday and still hemoglobin of 6.8 t herefore will receive 2 more units today. Levophed is up to 12 mcg/h -06/25/2021: This morning his Levophed has a drip to 20mcg/min, he was transfused another unit this morning and now is down to 14 mcg/min, is also on vasopressin. Repeat hemoglobin this morning when he was 8.9 after his transfusi on. -06/26/2021: Hemoglobin is 8 this morning, Levophed is down to 11 mcg/min and vasopressin is off, will check a hemoglobin this afternoon -06/27/2021: Hemoglobin is stable at 7.9. Levophed is down to 9 however still struggling to wean it off further. In discussion with business continuity analyst, will add mid odrine today -06/28/2021: Hemoglobin is 7.4, he is off of Levophed with the addition of midodrine. We will recheck his hemoglobin in the morning and if at or below 7, will transfuse as he has been having difficulty maintaining his hemoglobin -06/29/2021: Hemoglobin has stabilized and is now up to 7.8. We will continue to monitor. He is not need to be on Levophed since the beginning of midodrine. 2. Paroxysmal atrial fibrillation with RVR: EKG in ED w/ atrial fibrillation with RVR. Will maintain on telemetry, obtain cardiac enzyme serial set, obtain magnesium level, obtain ECHO, obtain TSH level, holding patient Eliquis given presentation as noted above #1, given blood pressure will initiate amnio bolus and drip with continued close vital sign monitoring. -06/24/2021: Continue with amiodarone with pressor support - 06/26/2021: He spontaneously converted overnight his amiodarone is off 3. Pneumonia, Possible Aspiration, Possible GN/GP Organism: CXR in the ED w/ infiltrate, concern for aspiration given current presentation, obtained following central line placement, awaiting final read. Will maintain on oxygen with wean as tolerated to room air, PRN albuterol, maintained on IV Zosyn and Vancomycin w/ pending MRSA screen and de-escalation as able, HOB, IS parameters w/ pending sputum cultures and urine antigens. Bld cx x 2 requested. This may possibly be related to the hypotension in addition to #1. -06/24/2021, will continue with empiric antibiotics for now, blood cultures are pending -06/26/2021: Cultures are negative -06/29/2021: We will discontinue vancomycin and continue with just Zosyn, can be transitioned to Augmentin p.o. on discharge 4. Diabetes mellitus type II: Hold oral home regimen, continue home insulin regimen, NPO status w/ q 6 hour accu checks w/ ISS. 5. ESRD: Patient with recent dialysis on day prior to current presentation, Sunday, will consult nephrology. 6. Hypertension: Given presentation holding all patient hypertensive regimen, add back once appropriate. 7. Hyperlipidemia: Continue home statin regimen. 8. Anxiety and depression: We will continue patient home fluoxetine regimen. DVT: SCDs Charges/Coding Visit Charges Inpatient E&M: 76545 Subs Hosp L2
[2021-06-29] MEDS: CHLORHEXIDINE GLUC 2% CLOTH 1 EACH TOWELETTE TOPICAL (10:00)
--- NOTE | 2021-06-29 10:38 | CASEMGMT ---
Social Work SW spoke with Dr. Peralta who indicates pt may be ready for discharge in the next few days. Phone call to Juliano at [facility] and updated. They are able to accept pt when he is medically ready. Clinical updates faxed to [facility]. SW will continue to follow for SNF placement. ADELINA Sharp
--- NOTE | 2021-06-29 11:42 | PN.RENAL_ITS ---
Subjective Subjective Sitting in chair. Complains pain in coccyx area. Denies any other complaints Objective Data Objective Data Vital Signs: Vital Signs Temp Pulse Resp BP Pulse Ox 97.4 F L 71 11 L 151/73 H 99 06/29/21 08:00 06/29/21 08:00 06/29/21 08:00 06/29/21 08:00 06/29/21 10:08 Oxygen Flow Rate (L/min) 1 Oxygen Delivery Method Room Air Weight: 68.8 kg Body Mass Index (BMI) 22.4 Intake & Output: Intake and Output for Last 24 Hours 06/27/21 06/28/21 06/29/21 23:59 23:59 23:59 Intake Total 1395.42 / 1395.42 638.5 / 638.5 766 / 766 Output Total 0 / 0 Balance 1395.42 / 1395.42 638.5 / 638.5 766 / 766 Lab / Micro Data Result Diagrams: 06/29/21 05:05 06/29/21 05:05 Labs: Laboratory Results - last 24 hr 06/28/21 16:57: POC Glucose 156 H 06/28/21 22:29: POC Glucose 135 H 06/29/21 05:05: WBC 6.5, RBC 2.55 L, Hgb 7.8 L, Hct 22.3 L, MCV 87.5, MCH 30.6, MCHC 35.0, RDW Std Deviation 48.7 H, RDW Coeff of Rose 15.3 H, Plt Count 164, MPV 9.0, Immature Gran % (Auto) 0.600, Neut % (Auto) 76.8 H, Lymph % (Auto) 12.4 L, [place] % (Auto) 6.4, Eos % (Auto) 3.2, Baso % (Auto) 0.6, Absolute Neuts (auto) 5.0, Absolute Lymphs (auto) 0.81 L, Nucleated RBC % 0 06/29/21 05:05: Sodium 137, Potassium 2.7 L*, Chloride 101, Carbon Dioxide 27.0, Anion Gap 9, BUN 35 H, Creatinine 3.60 H, Estim Creat Clear Calc 18.37, Est GFR (MDRD) Af Amer 22 L, Est GFR (MDRD) Non-Af 18 L, BUN/Creatinine Ratio 9.7 L, Glucose 117 H, Calcium 6.7 L 06/29/21 05:05: Phosphorus 2.3 L 06/29/21 05:05: Random Vancomycin 19.4 H 06/29/21 05:05: Magnesium 1.5 L Micro: Microbiology 06/23/21 05:15 Blood Culture (Wb) - Anticubital Right Blood Culture - Final No growth in 5 days. 06/23/21 05:15 Blood Culture (Wb) - Line Draw Blood Culture - Final No growth in 5 days. 06/23/21 04:40 Mucosa - Nose Respiratory Panel (PCR) - Final Physical Exam Narrative General: No apparent distress Respiratory: lung sounds clear anteriorly; no rales or rhonchi noted Cardiovascular: S1-S2 Extremities:+1 pitting edema b/l legs and arms Left forearm AV fistula positive thrill and bruit Assessment & Plan Assessment/Plan (1) ESRD (end stage renal disease): (2) Hemorrhagic shock: (3) A-fib: (4) Pneumonia: PLAN: -Dialysis schedule Sunday. For dialysis today over 3.5 hrs/3kbath with UF ~2Las pt/bp tolerates. Attempt to remove fluid gently with HD, blood pressures have improved. He is off IV pressors. We will give midodrine 20 mg at start of HD today. Recently difficult to remove fluid given significant hypotension. In outpatient setting patient had been taking amlodipine, clonidine, minoxidil and Lopressor (all on hold). Confirmed medications with patient's HD clinic. He had not needed Midodrine in the past. Old EDW was ~71kg -The patient received multiple PRBC transfusions. Continue AYANNA with dialysis -Blood pressure improved, Midodrine 10 mg 3 times daily -Current medications are reviewed and are appropriately dosed for ESRD patient. - Gastric biopsy, ulcer at incisura: Fragments of gastric mucosa with extensive ulceration and associated acute inflammation.Negative for malignancy -BC no growth. Augmentin at discharge. -Hypokalemia, hypophosphatemia, hypomagnesemia all being replaced today. 3k bath with HD today. At this time patient does not need renal diet restrictions. He is on liquid diet. Not on phosphate binders - ok for oxycodone prn pain
[2021-06-29 11:55] LABS: Bedside Glucose 95 mg/dL (70-110)
[2021-06-29] MEDS: oxyCODONE 5 MG Tablet PO (11:58)
[2021-06-29] MEDS: Midodrine HCl 5 MG Tablet 10 MG PO ×2 (12:01→19:05)
[2021-06-29] MEDS: Ensure Clear 120 ML Liquid PO ×2 (14:37→21:26)
--- NOTE | 2021-06-29 15:49 | NURSING ---
06/29/21 @ 1530- Report given to WAQAS Dyer on PCU. Patient transfered to PCU room 101. notified.
[2021-06-29] MEDS: Midodrine HCl 5 MG Tablet 20 MG PO (16:07)
[2021-06-29] MEDS: Epoetin Alfa epbx 10,000 UNITS/ML 10000 UNIT IV (16:49)
--- NOTE | 2021-06-29 20:30 | DIALYSIS ---
Hemodialysis x 3.5hrs. -2300ml UF with use of midodrine. Stable t/o. Hemostasis obtained, Tape/gauze applied. Report to Myra ALAN. See HD flowsheet for details.
[2021-06-29 22:35] LABS: Bedside Glucose 125 mg/dL (70-110)
--- NOTE | 2021-06-29 22:59 | PCS.PANDOC ---
PANDEMIC DOCUMENTATION INITIATED: Date: 04/18/2021 Time: 190
[2021-06-30 02:58] VITALS: PULSE 61
[2021-06-30 03:34] VITALS: BP 141/61; PULSE 75; RESP 16; TEMP 36.3; O2SAT 100
[2021-06-30] MEDS: Sucralfate 1 GM Tablet PO ×3 (05:13→17:27)
[2021-06-30 06:11] LABS: Bedside Glucose 105 mg/dL (70-110)
[2021-06-30 07:00] LABS: Bedside Glucose 121 mg/dL (70-110)
[2021-06-30 07:04] LABS: Absolute Neutrophil Count 4.5 X10^3/uL (2.0-7.7); Basophil# 0.04 X10^3/uL; Basophil% 0.6 % (0-1); Eosinophil# 0.19 X10^3/uL; Hematocrit 26.6 % (40-54); Hemoglobin 8.3 g/dL (13.0-16.5); Mean Corp Hgb Conc 31.2 g/dL (32-36); Mean Corpuscular Hgb 30.2 pg (27.0-32.0); Mean Corpuscular Volume 96.7 fL (80-94); Mean Platelet Vol. 9.7 fl (6.2-12.0); Monocyte# 0.45 X10^3/uL; Monocyte% 7.2 % (0-10); NRBC Flagged by Analyzer 0 % (0-5); Neutrophil # 4.53 X10^3/uL (2.7-7.7); Neutrophil % 72.6 % (47-70); Platelet Count 147 K/mm3 (150-450); RBC Distribution Width CV 15.9 % (11.6-14.6); RBC Distribution Width SD 54.4 fl (35.1-43.9); Red Blood Count 2.75 M/mm3 (4.6-6.2); White Blood Count 6.3 K/mm3 (4.4-11.0)
[2021-06-30 07:05] VITALS: PULSE 73
[2021-06-30 07:29] LABS: Anion Gap 8 (5-15); BUN 27 mg/dL (7-18); BUN/Creat Ratio 9.9 RATIO (10-20); Calcium,Total 6.6 mg/dL (8.5-10.1); Chloride 102 mmol/L (98-107); Creatinine, Serum 2.73 mg/dL (0.70-1.30); EST Glomerular Filtration Rate 25 mL/min (>60); Est Glom Filt Rate - Afr Amer 30 mL/min (>60); Estimated Creatinine Clearance 24.19 ml/min; Glucose 120 mg/dL (74-106); Potassium 3.3 mmol/L (3.5-5.1); Sodium Level 134 mmol/L (136-145)
[2021-06-30 08:21] VITALS: O2SAT 98
--- NOTE | 2021-06-30 09:20 | PCM.PN.REN ---
Subjective Subjective Resting in bed, no complaints. No overnight events. Objective Data Objective Data Vital Signs: Vital Signs Temp Pulse Resp BP Pulse Ox 97.4 F L 73 16 141/61 H 98 06/30/21 03:34 06/30/21 07:05 06/30/21 03:34 06/30/21 03:34 06/30/21 08:21 Oxygen Flow Rate (L/min) 1 Oxygen Delivery Method Room Air Weight: 68.9 kg Body Mass Index (BMI) 22.4 Intake & Output: Intake and Output for Last 24 Hours 06/28/21 06/29/21 06/30/21 23:59 23:59 23:59 Intake Total 638.5 / 638.5 2227.25 / 2227.25 250 / 250 Output Total 2300 / 2300 0 / 0 Balance 638.5 / 638.5 -72.75 / -72.75 250 / 250 Lab / Micro Data Result Diagrams: 06/30/21 06:36 06/30/21 06:36 Labs: Laboratory Results - last 24 hr 06/29/21 08:30: POC Glucose 105 06/29/21 11:50: POC Glucose 95 06/29/21 21:32: POC Glucose 125 H 06/30/21 06:32: POC Glucose 121 H 06/30/21 06:36: WBC 6.3, RBC 2.75 L, Hgb 8.3 L, Hct 26.6 L, MCV 96.7 H D, MCH 30.2, MCHC 31.2 L D, RDW Std Deviation 54.4 H, RDW Coeff of Rose 15.9 H, Plt Count 147 L, MPV 9.7, Immature Gran % (Auto) 0.600, Neut % (Auto) 72.6 H, Lymph % (Auto) 16.0 L, [place] % (Auto) 7.2, Eos % (Auto) 3.0, Baso % (Auto) 0.6, Absolute Neuts (auto) 4.5, Absolute Lymphs (auto) 1.00, Nucleated RBC % 0 06/30/21 06:36: Sodium 134 L, Potassium 3.3 L, Chloride 102, Carbon Dioxide 24.0, Anion Gap 8, BUN 27 H, Creatinine 2.73 H, Estim Creat Clear Calc 24.19, Est GFR (MDRD) Af Amer 30 L, Est GFR (MDRD) Non-Af 25 L, BUN/Creatinine Ratio 9.9 L, Glucose 120 H, Calcium 6.6 L Micro: Microbiology 06/23/21 05:15 Blood Culture (Wb) - Anticubital Right Blood Culture - Final No growth in 5 days. 06/23/21 05:15 Blood Culture (Wb) - Line Draw Blood Culture - Final No growth in 5 days. 06/23/21 04:40 Mucosa - Nose Respiratory Panel (PCR) - Final Physical Exam Narrative General: No apparent distress Respiratory: lung sounds clear anteriorly; no rales or rhonchi noted Cardiovascular: S1-S2 Extremities:+1 pitting edema b/l legs and arms Left forearm AV fistula positive thrill and bruit Assessment & Plan Assessment/Plan (1) ESRD (end stage renal disease): (2) Hemorrhagic shock: (3) A-fib: (4) Pneumonia: PLAN: -Dialysis schedule Sunday. For dialysis tomorrow over 3.5 hrs/3kbath with UF ~2L as pt/bp tolerates. Tolerated HD yesterday with 2.3L UF. Recently difficult to remove fluid given significant hypotension. In outpatient setting patient had been taking amlodipine, clonidine, minoxidil and Lopressor (all on hold). Confirmed medications with patient's HD clinic. He had not needed Midodrine in the past. Old EDW was ~71kg -The patient received multiple PRBC transfusions. Continue AYANNA with dialysis -Blood pressure improved, Midodrine 10 mg 3 times daily. Bps now elevated and will add holding parameters to Midodrine. -Current medications are reviewed and are appropriately dosed for ESRD patient. - Gastric biopsy, ulcer at incisura: Fragments of gastric mucosa with extensive ulceration and associated acute inflammation.Negative for malignancy -BC no growth. Augmentin at discharge. -Hypokalemia, hypophosphatemia, hypomagnesemia received replacement yesterday. 3k bath with HD. At this time patient does not need renal diet restrictions. He is on liquid diet. Will give oral K+ today, he has poor appetite. Not on phosphate binders - ok for oxycodone prn pain
[2021-06-30] MEDS: Juven (unflavored) Packet 1 PACKET PO ×2 (09:52→17:27)
[2021-06-30] MEDS: Potassium Chloride Oral Soln 20 MEQ/15 ML UDC 40 MEQ PO (09:53)
[2021-06-30] MEDS: Ensure Clear 120 ML Liquid PO ×3 (09:54→17:29)
[2021-06-30] MEDS: Nystatin Powder 15gm Bottle 1 APPLIC TOPICAL (09:54)
[2021-06-30 10:08] VITALS: BP 125/55; PULSE 75; RESP 12; TEMP 36.6; O2SAT 96
[2021-06-30] MEDS: Midodrine HCl 5 MG Tablet 10 MG PO ×3 (10:29→17:47)
--- NOTE | 2021-06-30 10:37 | CASEMGMT ---
Physician indicated patient will be discharged today as long as patient can tolerate a diet. TRISTA called Jason at [facility] letting her know patient will be returning today as long as patient can tolerate a diet. Anjana CANTU
--- NOTE | 2021-06-30 11:21 | PCM.TXEXTCAR ---
Diet 06/27/21 10:17 Diet: Clear Liquid Food consistency:: Regular Liquid Consistency:: Regular/Thin Is pt able to select menu?: No Routine Orders/Code Status Routine Lab Work: CBC and BMP Code Status: DNRCC-A Wound(s) SACRUM: Wound Type: Pressure Injury Therapies Physical Therapy: Eval and Treat Occupational Therapy: Eval and Treat Problem/Diagnosis (1) ESRD (end stage renal disease): Status: Acute (2) Hemorrhagic shock: Status: Acute (3) A-fib: Status: Acute (4) Pneumonia: Status: Acute Allergies/Procedures Done in Hospital Allergies Iodinated Contrast Media [Iodinated Contrast- Oral and IV Dye] Allergy (Verified 06/22/21 22:55) Hives Procedures: 2-D Echocardiogram and EGD Type of Care/Length of Stay Estimated LOS: Convalescent Care Less Than 30 days Type of Care Needed: Skilled Rehab Potential: Fair Prognosis: Fair Additional Orders/Day of Discharge Day of Discharge: 06/30/21 Dietary and Speech Recommendations Dietitian Recommendations/Changes: Recommend advance diet as tolerated to Renal, Consistent Carbohydrate, 2000 calorie controlled diet - consistency per [employer]. Giancarlo BID d/t wounds. Will resume Ensure Clear 4x/day w/ medpass if thickened liquids no longer necessary per [employer]. Discharge Plan Admission Admit Date/Time: 06/23/21 03:06 Attending Provider: Janusz Peralta Primary Care Provider: Lloyd Bernal Consulting Providers: Miles Prince ; Josette Valencia Discharge Orders/Prescriptions Prescriptions: New sucralfate 1 gram Tablet 1 g PO 1HR_ACHS Qty: 0 RF: 0 midodrine 5 mg Tablet 10 mg PO TIDCM Qty: 0 RF: 0 amoxicillin-pot clavulanate [Augmentin] 875-125 mg tablet 1 tab PO BID 2 Days Qty: 4 RF: 0 pantoprazole [Protonix] 40 mg tablet,delayed release (DR/EC) 40 mg PO BID Qty: 14 RF: 0 Continued doxazosin 1 MG tablet 2 mg PO QHS RF: 0 simvastatin 40 MG tablet 20 mg PO QHS RF: 0 albuterol sulfate 2.5 mg /3 mL (0.083 %) Solution For Nebulization 2.5 mg INHALATION Q2H PRN (Reason: SOB) RF: 0 melatonin 3 mg Tablet 3 mg PO QHS RF: 0 fluoxetine [Prozac] 20 mg Capsule 20 mg PO DAILY RF: 0 ergocalciferol (vitamin D2) 1,250 mcg (50,000 unit) Capsule 1,250 mcg PO QWEEK RF: 0 Held metoprolol succinate 50 MG tablet extended release 24 hr 50 mg PO DAILY RF: 0 Hold Instructions: Resume on 07/07/21. diltiazem HCl 180 mg Capsule,Extended Release 24hr 180 mg PO DAILY RF: 0 Hold Instructions: Resume on 07/07/21. lisinopril 40 mg Tablet 40 mg PO DAILY RF: 0 Hold Instructions: Resume on 07/07/21. Discontinued dexamethasone 6 mg Tablet 6 mg PO DAILY RF: 0 Eliquis 2.5 mg Tablet 2.5 mg PO BID RF: 0 Referrals / Follow Up: Lloyd Bernal MD [Primary Care Provider] - Within 1 Week Disposition Disposition (needs filled in before D/C Order can be placed): Intermediate Facility
[2021-06-30] MEDS: Epoetin Alfa epbx 10,000 UNITS/ML 10000 UNIT IV (12:28)
[2021-06-30] MEDS: 0.9% Saline Lock 10 ML Syringe IV (12:29)
[2021-06-30 12:45] LABS: Bedside Glucose 134 mg/dL (70-110)
--- NOTE | 2021-06-30 13:50 | WOUNDNOTE ---
Pt is still having frequent loose stools so still unable to place a Mepilex dressing to sacral pressure injury. will continue Triad cream until stools lessen. plan to place a Mepilex as soon as possible.
[2021-06-30 15:22] VITALS: BP 144/65; PULSE 76; RESP 15; TEMP 37; O2SAT 99
[2021-06-30] MEDS: Loperamide 2 MG Capsule 4 MG PO (15:22)
--- NOTE | 2021-06-30 15:48 | CASEMGMT ---
Patient is ready for discharge back to [facility] today. TRISTA faxed orders and negative COVID to [facility]. TRISTA arranged for patient to get picked up at via cot. SW notified RN, secretary book keeper, patient, and Dameeko at [facility]. RN will notify patient's . Plan: d/c back to [facility] under skilled level of care. [facility] transported via cot. Anjana CANTU
--- NOTE | 2021-06-30 16:16 | DS.PCM_ITS ---
Providers Date of Admission: 06/23/21 Primary Care Physician: Dr. Lloyd Bernal MD Consultations 06/23/21 04:48 Consult: Gastroenterology Routine Consulting Provider: Nanci Gastroenterology Reason for Consult: Hemorrhagic shock, GI bleed EMERGENT Consult: No Notified: Yes Date Notified: 06/23/21 Time Notified: 03:07 Method of Notification: called per ED, cortext Consult: [employer]ling Ball Engraver / Pulmonary Medicine Routine Consulting Provider: Miles Prince Reason for Consult: Hemorrhagic shock, GI bleed EMERGENT Consult: No Notified: Yes Date Notified: 06/23/21 Time Notified: 03:08 Method of Notification: cortext Consult: Nephrology Routine Consulting Provider: Josette Valencia Reason for Consult: ESRD on HD, admit w/ hemorrhagic shock, GI bleed EMERGENT Consult: No Notified: Yes Date Notified: 06/23/21 Time Notified: 09:44 Method of Notification: Page 06/23/21 06:35 Consult: Onc/Wound/intake rn Routine Comment: Reason for Consult:: SACRUM DECUB Reason For Visit: HEMORRHAGIC SHOCK, GI BLEED, PAF W/ RVR Diagnosis Discharge Diagnosis (1) ESRD (end stage renal disease): Status: Acute Code(s): N18.6 - End stage renal disease (2) Hemorrhagic shock: Status: Acute Code(s): R57.8 - Other shock (3) A-fib: Status: Acute Code(s): I48.91 - Unspecified atrial fibrillation (4) Pneumonia: Status: Acute Code(s): J18.9 - Pneumonia, unspecified organism Medications at Discharge Home Medications doxazosin 2 mg PO QHS 06/27/17 metoprolol succinate 50 mg PO DAILY 06/27/17 simvastatin 20 mg PO QHS 06/27/17 albuterol sulfate 2.5 mg INHALATION Q2H PRN 06/22/21 diltiazem HCl 180 mg PO DAILY 06/22/21 fluoxetine [Prozac] 20 mg PO DAILY 06/22/21 lisinopril 40 mg PO DAILY 06/22/21 melatonin 3 mg PO QHS 06/22/21 ergocalciferol (vitamin D2) 1,250 mcg PO QWEEK 06/23/21 amoxicillin-pot clavulanate [Augmentin] 1 tab PO BID 2 Days #4 tab 06/30/21 midodrine 10 mg PO TIDCM #0 tab 06/30/21 pantoprazole [Protonix] 40 mg PO BID #14 tab 06/30/21 sucralfate 1 g PO 1HR_ACHS #0 tab 06/30/21 Hospital Course Operations None Procedures 2-D Echocardiogram and EGD Summary of Care Provided Minutes Spent on Discharge: 50 Hospital Course: Per HPI: The patient is a 70 y/o M w/ PMHx: ESRD on HD, HTN, HLD, PAF, Diabetes mellitus type II, Former tobacco use who presents to the [facility] ED on 06/23/21 from [facility] with history of onset significant bouts of hematemesis noted to be bright red as well as bright red rectal bleeding and possibly hematuria with lower blood pressures as well as increased fatigue, malaise and confusion prompting ED referral. No reported history of any fevers, chills, cough or dyspnea at facility. Work-up in the ED included T 98.2, heart rate 131, BP initially 96/82 with most recent repeat 78/56, respiratory rate 24, on her percent on room air, CBC with WBC 11.6, hemoglobin 6.8, platelet 137 with left shift and lymphopenia, coags with PT 16.7, INR 1.4, PTT 42.2, CMP with sodium 134, chloride 93, carbon oxide 33, BUN/creatinine 88/5.13, glucose 266, not marked hepatic profile, lipase 34, type and cross performed per ED physician for 1 unit and discussed with ED with request for 2nd unit also. In the ED patient administered pantoprazole 80 mg IV bolus x1 as well as 1 L normal saline. Also discussed plan for ED to discuss case with Gastroenterology and [facility] ordered/discussed with Pharmacy. Patient became increasingly hypotension in the ED with central line placement and NEP initiated. Hospital Course: 1. Acute Hemorrhagic Shock secondary to Acute GI Bleed and possibly hematuria w/ resultant Acute Blood Loss Anemia on Chronic Anemia/AOCD and Acute Encephalopathy: Will admit to the ICU, continue consultation with gastroenterology and buggy loader, given currently MAP less than 65 will attempt additional aggressive IV fluid bolus, continue planned total 2 u PRBC administration, continue NEP given MAP < 65, maintain on IVFs, will continue IV PPI, n.p.o. status. Holding patient home Eliquis therapy. -06/24/2021: He was transfused 3 units yesterday and still hemoglobin of 6.8 therefore will receive 2 more units today. Levophed is up to 12 mcg/h -06/25/2021: This morning his Levophed has a drip to 20mcg/min, he was transfused another unit this morning and now is down to 14 mcg/min, is also on vasopressin. Repeat hemoglobin this morning when he was 8.9 after his transfusion. -06/26/2021: Hemoglobin is 8 this morning, Levophed is down to 11 mcg/min and vasopressin is off, will check a hemoglobin this afternoon -06/27/2021: Hemoglobin is stable at 7.9. Levophed is down to 9 however still struggling to wean it off further. In discussion with buggy loader, will add midodrine today -06/28/2021: Hemoglobin is 7.4, he is off of Levophed with the addition of midodrine. We will recheck his hemoglobin in the morning and if at or below 7, will transfuse as he has been having difficulty maintaining his hemoglobin -06/29/2021: Hemoglobin has stabilized and is now up to 7.8. We will continue to monitor. He is not need to be on Levophed since the beginning of midodrine. -06/30/2021: His hemoglobin has remained stable and actually went up today. He is remained stable and tolerating dialysis with the midodrine which we will continue on discharge. I do recommend that he obtain a CBC and a BMP at the senior care for further monitoring of his hemoglobin. We will also plan for twice daily PPI as well as Carafate to stabilize his gastric ulcer. He will need to follow-up with GI postoperatively for evaluation and follow-up of possible gastric carcinoma. As he is stable and he is from a senior care we will plan to discharge back to the senior care today. 2. Paroxysmal atrial fibrillation with RVR: EKG in ED w/ atrial fibrillation with RVR. Will maintain on telemetry, obtain cardiac enzyme serial set, obtain magnesium level, obtain ECHO, obtain TSH level, holding patient Eliquis given presentation as noted above #1, given blood pressure will initiate amnio bolus and drip with continued close vital sign monitoring. -06/24/2021: Continue with amiodarone with pressor support - 06/26/2021: He spontaneously converted overnight his amiodarone is off -06/30/2021: We will hold his Eliquis as he is now back in a normal sinus rhythm secondary to his excessive GI bleed 3. Pneumonia, Possible Aspiration, Possible GN/GP Organism: CXR in the ED w/ infiltrate, concern for aspiration given current presentation, obtained fol lowing central line placement, awaiting final read. Will maintain on oxygen with wean as tolerated to room air, PRN albuterol, maintained on IV Zosyn and Vancomycin w/ pending MRSA screen and de-escalation as able, HOB, IS parameters w/ pending sputum cultures and urine antigens. Bld cx x 2 requested. This may possibly be related to the hypotension in addition to #1. -06/24/2021, will continue with empiric antibiotics for now, blood cultures are pending -06/26/2021: Cultures are negative -06/29/2021: We will discontinue vancomycin and continue with just Zosyn, can be transitioned to Augmentin p.o. on discharge -06/30/2021: We will plan for 2 more days of Augmentin to complete treatment for his aspiration pneumonia 4. Diabetes mellitus type II: Hold oral home regimen, continue home insulin regimen, NPO status w/ q 6 hour accu checks w/ ISS. 5. ESRD: Patient with recent dialysis on day prior to current presentation, Sunday, will consult nephrology. 6. Hypertension: Given presentation holding all patient hypertensive regimen, add back once appropriate. 7. Hyperlipidemia: Continue home statin regimen. 8. Anxiety and depression: We will continue patient home fluoxetine regimen. Physical Exam Const alert and no apparent distress General Appearance: cooperative HEENT normocephalic and moist oral mucous membranes Eyes PERRL, EOMs intact bilaterally and conjunctivae normal Neck supple and no JVD Resp normal respiratory effort, no retractions, no use of accessory muscles and clear to auscultation bilaterally Auscultation: Negative for crackles, rales, rhonchi or wheezes Cardio regular rate, regular rhythm, S1 normal heart sound, S2 normal heart sound and no murmurs GI soft to palpation, non-tender and non-distended; Negative for hepatosplenomegaly Extremity no clubbing, cyanosis or edema Skin no rashes or lesions noted Neuro no focal motor deficits and no sensory deficits noted Psych Appearance: appropriate Mood & Affect: flat affect Weight / BMI Weight Weight: 151 lb 14.376 oz Body Mass Index (BMI) 22.4 ABG / Lab / Microbiology Data Result Diagrams: 06/30/21 06:36 06/30/21 06:36 Laboratory: Laboratory Results - last 24 hr 06/29/21 08:30: POC Glucose 105 06/29/21 21:32: POC Glucose 125 H 06/30/21 06:32: POC Glucose 121 H 06/30/21 06:36: WBC 6.3, RBC 2.75 L, Hgb 8.3 L, Hct 26.6 L, MCV 96.7 H D, MCH 30.2, MCHC 31.2 L D, RDW Std Deviation 54.4 H, RDW Coeff of Rose 15.9 H, Plt Count 147 L, MPV 9.7, Immature Gran % (Auto) 0.600, Neut % (Auto) 72.6 H, Lymph % (Auto) 16.0 L, [place] % (Auto) 7.2, Eos % (Auto) 3.0, Baso % (Auto) 0.6, Absolute Neuts (auto) 4.5, Absolute Lymphs (auto) 1.00, Nucleated RBC % 0 06/30/21 06:36: Sodium 134 L, Potassium 3.3 L, Chloride 102, Carbon Dioxide 24.0, Anion Gap 8, BUN 27 H, Creatinine 2.73 H, Estim Creat Clear Calc 24.19, Est GFR (MDRD) Af Amer 30 L, Est GFR (MDRD) Non-Af 25 L, BUN/Creatinine Ratio 9.9 L, Glucose 120 H, Calcium 6.6 L 06/30/21 12:25: POC Glucose 134 H Microbiology: Microbiology 06/30/21 00:30 Stool C. difficile GDH Antigen & Toxins - Final 06/30/21 13:15 Nasal Secretion SARS-CoV-2 Antigen (Rapid) - Final 06/23/21 05:15 Blood Culture (Wb) - Anticubital Right Blood Culture - Final No growth in 5 days. 06/23/21 05:15 Blood Culture (Wb) - Line Draw Blood Culture - Final No growth in 5 days. 06/23/21 04:40 Mucosa - Nose Respiratory Panel (PCR) - Final Meaningful Use Info Meaningful Use Diagnoses (Choose all that apply): None applicable Discharge Plan Admission Admit Date/Time: 06/23/21 03:06 Attending Provider: Janusz Peralta Primary Care Provider: Lloyd Bernal Consulting Providers: Miles Prince ; Josette Valencia Discharge Orders/Prescriptions Prescriptions: New sucralfate 1 gram Tablet 1 g PO 1HR_ACHS Qty: 0 RF: 0 midodrine 5 mg Tablet 10 mg PO TIDCM Qty: 0 RF: 0 amoxicillin-pot clavulanate [Augmentin] 875-125 mg tablet 1 tab PO BID 2 Days Qty: 4 RF: 0 pantoprazole [Protonix] 40 mg tablet,delayed release (DR/EC) 40 mg PO BID Qty: 14 RF: 0 Continued doxazosin 1 MG tablet 2 mg PO QHS RF: 0 simvastatin 40 MG tablet 20 mg PO QHS RF: 0 albuterol sulfate 2.5 mg /3 mL (0.083 %) Solution For Nebulization 2.5 mg INHALATION Q2H PRN (Reason: SOB) RF: 0 melatonin 3 mg Tablet 3 mg PO QHS RF: 0 fluoxetine [Prozac] 20 mg Capsule 20 mg PO DAILY RF: 0 ergocalciferol (vitamin D2) 1,250 mcg (50,000 unit) Capsule 1,250 mcg PO QWEEK RF: 0 Held metoprolol succinate 50 MG tablet extended release 24 hr 50 mg PO DAILY RF: 0 Hold Instructions: Resume on 07/07/21. diltiazem HCl 180 mg Capsule,Extended Release 24hr 180 mg PO DAILY RF: 0 Hold Instructions: Resume on 07/07/21. lisinopril 40 mg Tablet 40 mg PO DAILY RF: 0 Hold Instructions: Resume on 07/07/21. Discontinued dexamethasone 6 mg Tablet 6 mg PO DAILY RF: 0 Eliquis 2.5 mg Tablet 2.5 mg PO BID RF: 0 Referrals / Follow Up: Lloyd Bernal MD [Primary Care Provider] - Within 1 Week Disposition Disposition (needs filled in before D/C Order can be placed): Longterm Facility Charges/Coding Visit Charges Inpatient E&M: 74333 Disch Hosp
[2021-06-30 17:35] LABS: Bedside Glucose 122 mg/dL (70-110)
--- NOTE | 2021-06-30 17:39 | NURSING ---
report called to [facility] nurse Tess Casey
[2021-06-30] MEDS: oxyCODONE 5 MG Tablet PO (17:48)
== END 2021-06-30 18:02 | disposition skilled nursing facility (03) | DRG 377 ==
LOC: ED 06-23 00:10 → ICU 06-23 03:27 → PCU 06-29 15:45
PROVIDERS: Anesthesiology; Internal Medicine Critical Care Medicine; Internal Medicine Gastroenterology; Nurse Practitioner Adult Health; Admitting Provider Family Medicine; Emergency Provider Emergency Medicine; PCP Family Medicine; Visit Provider Family Medicine
PROC: 0DJ08ZZ Inspection of Upper Intestinal Tract, Via Natural or Artificial Opening Endoscopic (ICD-10-PCS; CPT 43235; principal; 2021-06-23 15:55)
DX: K26.4 Chronic or unspecified duodenal ulcer with hemorrhage (principal); J69.0 Pneumonitis due to inhalation of food and vomit; N18.6 End stage renal disease; R57.8 Other shock; G93.41 Metabolic encephalopathy; I12.0 Hypertensive chronic kidney disease with stage 5 chronic kidney disease or end stage renal disease; D62 Acute posthemorrhagic anemia; K25.4 Chronic or unspecified gastric ulcer with hemorrhage; K20.90 Esophagitis, unspecified without bleeding; D63.8 Anemia in other chronic diseases classified elsewhere; E11.22 Type 2 diabetes mellitus with diabetic chronic kidney disease; E11.319 Type 2 diabetes mellitus with unspecified diabetic retinopathy without macular edema; E78.5 Hyperlipidemia, unspecified; E88.09 Other disorders of plasma-protein metabolism, not elsewhere classified; E83.42 Hypomagnesemia; E83.39 Other disorders of phosphorus metabolism; F32.A Depression, unspecified; F41.9 Anxiety disorder, unspecified; I95.9 Hypotension, unspecified; I48.0 Paroxysmal atrial fibrillation; M79.601 Pain in right arm; M79.89 Other specified soft tissue disorders; M10.9 Gout, unspecified; Z66 Do not resuscitate; Z99.2 Dependence on renal dialysis; Z23 Encounter for immunization; Z87.19 Personal history of other diseases of the digestive system; Z87.442 Personal history of urinary calculi; Z86.16 Personal history of COVID-19; Z79.4 Long term (current) use of insulin; Z79.01 Long term (current) use of anticoagulants; Z79.899 Other long term (current) drug therapy; Z87.891 Personal history of nicotine dependence
CPT/HCPCS: 36415; 71045; 80048; 80053; 80202; 82962; 83690; 83735; 84100; 84145; 84484; 85014; 85018; 85025; 85027; 85610; 85730; 86850; 86900; 86901; 86920; 86922; 87040; 87426; 87493; 87633; 88305; 88342; 90937; 92526; 92610; 93005; 93306; 97110; 97116; 97163; 97166; 97530; 97802; 97803; 99251; 99285; J7030; J7040; J7050; J7120; J7168; P9016; A4216; C1751; G0257; G0463; J0610; J3490; Q5106

== ENCOUNTER → 2021-07-06 09:00 | Outpatient (CLI) | payer SELFPAY ==
[2021-07-06 09:16] VITALS: BP 137/84; PULSE 79; RESP 16; TEMP 35.9; O2SAT 97
[2021-07-06 10:00] VITALS: BP 130/50; PULSE 67; RESP 16; TEMP 36; O2SAT 100
[2021-07-06 10:55] VITALS: BP 135/78; PULSE 78; RESP 16; TEMP 36.1
[2021-07-06 11:55] VITALS: BP 123/60; PULSE 80; RESP 16; TEMP 36.2; O2SAT 100
== END ==
PROVIDERS: PCP Family Medicine; Referring Provider Family Medicine; Visit Provider Family Medicine
DX: D64.9 Anemia, unspecified (principal)
CPT/HCPCS: 36415; 36430; 86850; 86900; 86901; 86920; 86922; J7040; P9016; A4216

== ENCOUNTER 2021-08-03 21:55 | Inpatient (IN) | payer MEDICARE, SELFPAY ==
[2021-08-03 21:56] VITALS: BP 152/82; PULSE 82; RESP 16; TEMP 36.7; O2SAT 100; BMI 22.1
--- NOTE | 2021-08-03 22:11 | EKG12_ITS ---
Test Reason : GEN ILL Blood Pressure : / mmHG Vent. Rate : 081 BPM Atrial Rate : 081 BPM P-R Int : 128 ms QRS Dur : 086 ms QT Int : 392 ms P-R-T Axes : 028 042 046 degrees QTc Int : 455 ms Normal sinus rhythm Normal ECG Confirmed by BRIAN WALTER, PABLITO ([id number]), editor managing director LOAN WILKS ([id number]) on 08/08/2021 9:21:55 AM Referred By: ERIN Confirmed By:JUDY TORRES MD
--- NOTE | 2021-08-03 22:32 | EDS_ITS ---
HPI History of Present Illness Chief Complaint: General Illness Informant: patient, EMS and SNF Narrative Narrative: Apparently patient has felt weak and lightheaded at times for the past several weeks. Today lab work showed hemoglobin of 6.7, also potassium of 5.6 and context of chronic renal failure and missing dialysis for the past 2 days, the patient states he gets hemodialysis 4 times weekly, including Sunday and Sunday, today is Sunday and his last dialysis was on Sunday, during which his left upper extremity fistula infiltrated and now they have not been using it. Patient states staff told him he was having blood in his stool but he is not sure he cannot see it. He denies having abdominal pain, nausea, vomiting. He denies any chest discomfort or dyspnea with exertion, however for the past 2 weeks at least he has not been able to walk due to feeling too weak in his legs. [facility] Medical History A-fib Anemia CKD (chronic kidney disease) Depression Diabetes type 2, controlled Diabetic nephropathy Diabetic retinopathy ESRD (end stage renal disease) Gastrointestinal bleeding Gout Hyperlipemia Hypertension Irregular heart beat Nephrolithiasis Home Medications doxazosin 2 mg PO QHS 06/27/17 [History Last Taken Unknown] metoprolol succinate 50 mg PO SUTHSA 06/27/17 [History Last Taken 07/04/17 07:30] simvastatin 20 mg PO QHS 06/27/17 [History Last Taken Unknown] albuterol sulfate 2.5 mg INHALATION Q2H PRN 06/22/21 [History Last Taken Unkn own] diltiazem HCl 180 mg PO SUTUSA 06/22/21 [History Last Taken Unknown] fluoxetine [Prozac] 20 mg PO DAILY 06/22/21 [History Last Taken Unknown] lisinopril 40 mg PO SUTUSA 06/22/21 [History Last Taken Unknown] melatonin 3 mg PO QHS 06/22/21 [History Last Taken Unknown] ergocalciferol (vitamin D2) 1,250 mcg PO MO 06/23/21 [History Last Taken Unknown] pantoprazole [Protonix] 40 mg PO BID #14 tab 06/30/21 [Rx Last Taken Unknown] sucralfate 1 g PO 1HR_ACHS #0 tab 06/30/21 [Rx Last Taken Unknown] ascorbic acid (vitamin C) [Vitamin C] 500 mg PO DAILY 08/03/21 [History Last Taken Unknown] calcium carbonate 1,200 mg PO DAILY 08/03/21 [History Last Taken Unknown] Allergy/AdvReac Type Severity Reaction Status Date / Time Iodinated Contrast Media Allergy Hives Verified 08/03/21 21:56 [Iodinated Contrast- Oral and IV Dye] Family History Mother Heart disease Father Heart disease Surgical History Hx of appendectomy Hx of arteriovenostomy for renal dialysis Hx of cholecystectomy Hx of shoulder surgery Social History housing: [facility] Smoking Status: Former smoker second hand exposure: No alcohol intake: never substance use type: does not use caffeine: Yes what type of physical activity do you participate in: none seatbelt use: always ROS ROS ED Constitutional Constitutional ED: Reports fatigue; Denies chills or fever(s) Eyes Eyes: Denies change in vision or diplopia ENT ENT ED: Denies rhinorrhea or sore throat Cardiovascular Cardiovascular: Denies chest pain or palpitations Respiratory/Chest Respiratory/Chest: Denies cough or dyspnea Gastrointestinal Gastrointestinal: Reports as per HPI and rectal bleeding; Denies abdominal pain, diarrhea, nausea or vomiting Genitourinary Genitourinary ED: Denies dysuria or hematuria Musculoskeletal Musculoskeletal: Denies back pain or neck pain Integumentary Denies abscess or rash Neurologic Neurologic: Denies headache(s), paresthesias or weakness Psychiatric Psychiatric: Denies anxiety or suicidal thoughts EXAM Physical Exam Const Vital Signs: 08/03/21 21:56 08/03/21 22:01 08/03/21 23:45 Temperature 98.1 F Temperature Source Oral Pulse Rate 82 84 Respiratory Rate 16 15 Respiratory Effort Normal Non-Labored Respiratory Pattern Normal Blood Pressure 152/82 H Blood Pressure Mean 105 Pulse Ox 100 Oxygen Delivery Method Nasal Cannula Oxygen Flow Rate (L/min) 2 Positive well nourished and well developed General Appearance ED: well developed and NAD HEENT Reports moist mucous membranes normocephalic and atraumatic Eyes PERRL and EOMs intact bilaterally Neck full ROM and supple Resp normal respiratory effort and clear to auscultation bilaterally Cardio regular rate and regular rhythm Rate: Negative for tachycardic GI non-tender and non-distended Auscultation: normoactive bowel sounds Palpation: soft Rectal Exam: heme positive stool gross blood (mixed in w/ brown stool, no active bleeding/pooling on RANDELL); Negative for tenderness Back/Spine no CVA tenderness General Back: other FROM Extremity normal to inspection General Extremety ED: Negative for edema, pulses abnormal or tenderness General Extremity: Negative for edema or pulses abnormal Neuro oriented x3, CN's II-XII intact bilaterally and no sensory deficits noted Sensorium / Orientation: awake and alert Motor Exam: strength 5/5 throughout Skin no rashes or lesions noted and no wounds MDM MDM MDM Narrative Medical decision making narrative: Patient is clinically and hemodynamically stable. I discussed with Dr. Interiano on for gastroenterology, he agreed with transfusing the patient with a unit of blood even though his hemoglobin is a little higher than it was earlier today, and putting him on a Protonix drip. Apparently the patient is on Protonix 40 mg twice daily, likely due to GI bleed causing hemorrhagic shock when he was here in June, since then he has been off of the Eliquis he was on for atrial fibrillation. Discussed blood transfusion with him, he consents. Also his potassium is increasing as is his BUN now at 101, it was 91 earlier today, the hyperkalemic order set was ordered, which for him includes albuterol, insulin, dextrose. I spoke with the joint setter affirmative action officer for his joint setter Dr. Hayden, he does not come here he goes to the hospital in [place], and the physician on-call does not know this particular patient or the issue with his left forearm. Lab Data Attestation: I reviewed the patient's lab results. Labs: Laboratory Results - last 24 hr 08/03/21 08/03/21 08/03/21 22:02 22:02 22:02 WBC 5.6 RBC 2.46 L Hgb 7.2 L Hct 22.4 L MCV 91.1 MCH 29.3 MCHC 32.1 RDW Std Deviation 51.8 H RDW Coeff of Rose 15.5 H Plt Count 214 MPV 9.5 Immature Gran % (Auto) 0.500 Neut % (Auto) 76.8 H Lymph % (Auto) 12.4 L Bureau % (Auto) 7.6 Eos % (Auto) 1.6 Baso % (Auto) 1.1 H Absolute Neuts (auto) 4.3 Absolute Lymphs (auto) 0.70 L Nucleated RBC % 0 Sodium 132 L Potassium 6.1 H* Chloride 96 L Carbon Dioxide 27.0 Anion Gap 9 BUN 101 H* Creatinine 5.83 H Estim Creat Clear Calc 11.02 Est GFR (MDRD) Af Amer 12 L Est GFR (MDRD) Non-Af 10 L BUN/Creatinine Ratio 17.3 Glucose 142 H Calcium 8.4 L Troponin I High Sens 11 Blood Type Cancelled Antibody Screen Cancelled Crossmatch See Detail 08/03/21 22:45 WBC RBC Hgb Hct MCV MCH MCHC RDW Std Deviation RDW Coeff of Rose Plt Count MPV Immature Gran % (Auto) Neut % (Auto) Lymph % (Auto) Bureau % (Auto) Eos % (Auto) Baso % (Auto) Absolute Neuts (auto) Absolute Lymphs (auto) Nucleated RBC % Sodium Potassium Chloride Carbon Dioxide Anion Gap BUN Creatinine Estim Creat Clear Calc Est GFR (MDRD) Af Amer Est GFR (MDRD) Non-Af BUN/Creatinine Ratio Glucose Calcium Troponin I High Sens Blood Type Antibody Screen Crossmatch See Detail EKG Initial EKG: Attestation: I personally reviewed and interpreted this EKG as follows: Interpretation: Sinus Rhythm and No Acute Injury Pattern Comments: nml EKG Critical Care Time Critical Care Time: Yes Critical care time (excluding procedures): 30-74 minutes (33 min), Including time spent:, Discussing w/Patient &/or Family/After School Teacher, Discussing w/Consultants, Arranging Admission or Transfer and Performing Direct Patient Care at Bedside Discharge Plan Triage Chief Complaint: General Illness ED Provider: Kris Chowdhury Dx/Rx/DC Orders Clinical Impression: Acute blood loss anemia, Acute GI bleeding, Acute hyperkalemia, ESRD on dialysis Prescriptions: No Action doxazosin 1 MG tablet 2 mg PO QHS RF: 0 metoprolol succinate 50 MG tablet extended release 24 hr 50 mg PO SUTHSA RF: 0 Hold Instructions: Resume on 07/07/21. simvastatin 40 MG tablet 20 mg PO QHS RF: 0 albuterol sulfate 2.5 mg /3 mL (0.083 %) Solution For Nebulization 2.5 mg INHALATION Q2H PRN (Reason: SOB) RF: 0 diltiazem HCl 180 mg Capsule,Extended Release 24hr 180 mg PO SUTUSA RF: 0 Hold Instructions: Resume on 07/07/21. melatonin 3 mg Tablet 3 mg PO QHS RF: 0 lisinopril 40 mg Tablet 40 mg PO SUTUSA RF: 0 Hold Instructions: Resume on 07/07/21. fluoxetine [Prozac] 20 mg Capsule 20 mg PO DAILY RF: 0 ergocalciferol (vitamin D2) 1,250 mcg (50,000 unit) Capsule 1,250 mcg PO MO RF: 0 sucralfate 1 gram Tablet 1 g PO 1HR_ACHS Qty: 0 RF: 0 pantoprazole [Protonix] 40 mg tablet,delayed release (DR/EC) 40 mg PO BID Qty: 14 RF: 0 calcium carbonate 600 mg calcium (1,500 mg) Tablet 1,200 mg PO DAILY RF: 0 ascorbic acid (vitamin C) [Vitamin C] 500 mg Tablet 500 mg PO DAILY RF: 0 Primary Care Provider: Lloyd Bernal Referrals: Lloyd Bernal MD [Primary Care Provider] - Disposition Disposition: Acute Care Hospital [facility]
[2021-08-03 22:42] LABS: Absolute Neutrophil Count 4.3 X10^3/uL (2.0-7.7); Basophil# 0.06 X10^3/uL; Basophil% 1.1 % (0-1); Eosinophil# 0.09 X10^3/uL; Eosinophils% 1.6 % (0-5); Hematocrit 22.4 % (40-54); Hemoglobin 7.2 g/dL (13.0-16.5); Lymphocyte % 12.4 % (19-41); Mean Corp Hgb Conc 32.1 g/dL (32-36); Mean Corpuscular Hgb 29.3 pg (27.0-32.0); Mean Corpuscular Volume 91.1 fL (80-94); Mean Platelet Vol. 9.5 fl (6.2-12.0); Monocyte# 0.43 X10^3/uL; Monocyte% 7.6 % (0-10); NRBC Flagged by Analyzer 0 % (0-5); Neutrophil # 4.32 X10^3/uL (2.7-7.7); Neutrophil % 76.8 % (47-70); Platelet Count 214 K/mm3 (150-450); RBC Distribution Width CV 15.5 % (11.6-14.6); RBC Distribution Width SD 51.8 fl (35.1-43.9); Red Blood Count 2.46 M/mm3 (4.6-6.2); White Blood Count 5.6 K/mm3 (4.4-11.0)
[2021-08-03 23:03] LABS: Anion Gap 9 (5-15); BUN 101 mg/dL (7-18); BUN/Creat Ratio 17.3 RATIO (10-20); Calcium,Total 8.4 mg/dL (8.5-10.1); Chloride 96 mmol/L (98-107); Creatinine, Serum 5.83 mg/dL (0.70-1.30); EST Glomerular Filtration Rate 10 mL/min (>60); Est Glom Filt Rate - Afr Amer 12 mL/min (>60); Estimated Creatinine Clearance 11.02 ml/min; Glucose 142 mg/dL (74-106); Potassium 6.1 mmol/L (3.5-5.1); Sodium Level 132 mmol/L (136-145); Troponin-I HS 11 pg/mL (3.0-78.0)
[2021-08-03] MEDS: Insulin Lispro 10 UNIT in Syringe 0 ML 6 UNIT IV (23:29)
[2021-08-03] MEDS: Dextrose 50%-Water 25 GM/50 ML DISP.SYRIN IV (23:29)
[2021-08-03 23:45] VITALS: PULSE 84; RESP 15
--- NOTE | 2021-08-03 23:48 | PCM.HP.STD ---
HPI - General HPI Narrative VALENTINA MAHONEY, is a 71 M is SNF resident with multiple comorbidities was brought to ER for anemia, hemoglobin found 6.7 on 08/03. Patient does not know himself but was told by nursing staff that he has blood in the stool. Patient has been feeling weak, lightheadedness, dyspnea on exertion although he is mainly sedentary in SNF. Denies abdominal pain. Stool for occult blood positive in ED. In ED, hemodynamically blood pressure and heart rate in normal range. Patient also had infiltration of AV fistula on left upper extremity that occurred on past Sunday 2 days ago and was not dialyzed yesterday. Patient gets hemodialysis every day except by Dr. Modesto Edwards in [place]. In ED, K6.1, BUN/creatinine 101/5.83. Patient is mainly anuric. Twelve-lead EKG shows sinus rhythm 81 beats per note but not tall T waves. [facility] Medical History A-fib Anemia CKD (chronic kidney disease) Depression Diabetes type 2, controlled Diabetic nephropathy Diabetic retinopathy ESRD (end stage renal disease) Gastrointestinal bleeding Gout Hyperlipemia Hypertension Irregular heart beat Nephrolithiasis Home Medications doxazosin 2 mg PO QHS 06/27/17 [History Last Taken Unknown] metoprolol succinate 50 mg PO SUTHSA 06/27/17 [History Last Taken 07/04/17 07:30] simvastatin 20 mg PO QHS 06/27/17 [History Last Taken Unknown] albuterol sulfate 2.5 mg INHALATION Q2H PRN 06/22/21 [History Last Taken Unknown] diltiazem HCl 180 mg PO SUTUSA 06/22/21 [History Last Taken Unknown] fluoxetine [Prozac] 20 mg PO DAILY 06/22/21 [History Last Taken Unknown] lisinopril 40 mg PO SUTUSA 06/22/21 [History Last Taken Unknown] melatonin 3 mg PO QHS 06/22/21 [History Last Taken Unknown] ergocalciferol (vitamin D2) 1,250 mcg PO MO 06/23/21 [History Last Taken Unknown] pantoprazole [Protonix] 40 mg PO BID #14 tab 06/30/21 [Rx Last Taken Unknown] sucralfate 1 g PO 1HR_ACHS #0 tab 06/30/21 [Rx Last Taken Unknown] ascorbic acid (vitamin C) [Vitamin C] 500 mg PO DAILY 08/03/21 [History Last Taken Unknown] calcium carbonate 1,200 mg PO DAILY 08/03/21 [History Last Taken Unknown] Allergy/AdvReac Type Severity Reaction Status Date / Time Iodinated Contrast Media Allergy Hives Verified 08/03/21 21:56 [Iodinated Contrast- Oral and IV Dye] Family History Mother Heart disease Father Heart disease Surgical History Hx of appendectomy Hx of arteriovenostomy for renal dialysis Hx of cholecystectomy Hx of shoulder surgery Social History housing: senior care Smoking Status: Former smoker second hand exposure: No alcohol intake: never substance use type: does not use caffeine: Yes what type of physical activity do you participate in: none seatbelt use: always ROS ROS Narrative Constitutional: Reports fatigue and weakness HEENT: Reports systems reviewed and no addt'l complaints, except as documented Respiratory/Chest: Denies chest pain. Gastrointestinal: Denies abdominal pain. Rest as mentioned in HPI Genitourinary: Anuric. On hemodialysis. Musculoskeletal: Reports joint pain and limited range of motion. Sedentary body habit Neurologic: Denies seizure-like activity skin: Bruise/ecchymosis in left upper extremity. Hemodialysis fistula. Endocrinology: Reports systems reviewed and no addt'l complaints, except as documented Hematologic/Lymphatic: Reports systems reviewed and no addt'l complaints, except as documented Rest 12 ROS are negative except as mentioned in HPI Vital Signs Vital Signs Vital Signs: 08/03/21 21:56 08/03/21 22:01 08/03/21 23:45 Temperature 98.1 F Temperature Source Oral Pulse Rate 82 84 Respiratory Rate 16 15 Respiratory Effort Normal Non-Labored Respiratory Pattern Normal Blood Pressure 152/82 H Blood Pressure Mean 105 Pulse Ox 100 Oxygen Delivery Method Nasal Cannula Oxygen Flow Rate (L/min) 2 Weight Weight: 150 lb Body Mass Index (BMI) 22.1 Physical Exam Narrative General: Alert, Oriented x3, Cooperative HEENT: Atraumatic, PERRLA, EOMI, Normocephalic Oral: Oral mucosa dry. No Gingival or Mucosal Lesions/ Ulcerations Neck: Supple, No JVD, Negative Carotid Bruits Lungs: Air entry diminished in bilateral lung bases. No crepitation/rhonchi Cardiovascular: Sinus rhythm, Normal S1, Normal S2, No murmurs Abdomen: Bowel Sounds Present, Soft, Non Tender, Non-Distended. Occult blood positive : No renal angle tenderness. No suprapubic tenderness. Extremities: No edema, Capillary Refill Less than 3 Seconds Skin: Left forearm AV fistula, good thrill palpable. Bruit is present. Musculoskeletal: No Tenderness to Palpation of Joints or Extremities Neurological: Cranial nerves II-XII grossly intact, DTR 2+/4 and Symmetrical, Neuro grossly intact Psych/Mental Status: Normal Affect, Appropriate. Results Lab / Micro Data Result Diagrams: 08/03/21 22:02 08/03/21 22:02 Labs: Laboratory Results - last 24 hr 08/03/21 22:02: WBC 5.6, RBC 2.46 L, Hgb 7.2 L, Hct 22.4 L, MCV 91.1, MCH 29.3, MCHC 32.1, RDW Std Deviation 51.8 H, RDW Coeff of Rose 15.5 H, Plt Count 214, MPV 9.5, Immature Gran % (Auto) 0.500, Neut % (Auto) 76.8 H, Lymph % (Auto) 12.4 L, Gosper % (Auto) 7.6, Eos % (Auto) 1.6, Baso % (Auto) 1.1 H, Absolute Neuts (auto) 4.3, Absolute Lymphs (auto) 0.70 L, Nucleated RBC % 0 08/03/21 22:02: Sodium 132 L, Potassium 6.1 H*, Chloride 96 L, Carbon Dioxide 27.0, Anion Gap 9, BUN 101 H*, Creatinine 5.83 H, Estim Creat Clear Calc 11.02, Est GFR (MDRD) Af Amer 12 L, Est GFR (MDRD) Non-Af 10 L, BUN/Creatinine Ratio 17.3, Glucose 142 H, Calcium 8.4 L, Troponin I High Sens 11 08/03/21 22:02: Blood Type Cancelled, Antibody Screen Cancelled, Crossmatch See Detail 08/03/21 22:45: Crossmatch See Detail Micro: Microbiology 08/03/21 22:40 Stool Stool Occult Blood ([facility]) - Final Occult Blood Positive Assessment & Plan Assessment/Plan (1) Acute GI bleeding: (2) Acute blood loss anemia: PLAN: 1. Acute blood loss anemia due to acute GI bleed, exact site unclear probably upper GI bleed: Patient is being admitted in PCU. Patient denies NSAID or anticoagulant. GI is being consulted. BUN high 101 for patient not dialyzed for 2 days. Patient on Protonix drip. Continue Carafate. Hemoglobin is 7.2. Plan for 1 week PRBC transfusion tomorrow while during dialysis to avoid fluid overload. The patient had EGD on 06/24/2021 reported as normal esophagus, large gastric ulcer, 2.1 cm cratered ulcer at the incisura. Biopsy negative for H. pylori, negative for malignancy. Patient was admitted in June 2020 in ICU with hemorrhagic shock from upper GI bleed 2. ESRD on hemodialysis with hyperkalemia: [employer] business services clerk is being consulted. Plan for hemodialysis tomorrow a.m. Kayexalate 30 g ordered. Not showing hyperkalemic arrhythmic changes on EKG 3. Paroxysmal A. fib: Currently EKG shows sinus rhythm. Not on anticoagulant. During previous admission he was in A. fib with RVR.2D echo on June 2021 EF 60%. LA mildly enlarged. 4. Diabetes mellitus type 2: Accu-Cheks and cover with sliding scale. 5. Other comorbidities of hypertension, dyslipidemia, anxiety and depression: Home medication reconciliation done. Charges/Coding Visit Charges Inpatient E&M: 75107 Init Hosp L3 Procedures Hospitalists Procedures: 95239 Advncd Care Plan 30 Min
[2021-08-04] VITALS (20 sets, daily range): BP systolic 129–175; BP diastolic 59–89; PULSE 83–108; RESP 14–18; TEMP 36.1–37; O2SAT 94–100; BMI 23.1
[2021-08-04 00:54] LABS: International Normalized Ratio 1.2; Prothrombin Time (Protime)PT. 14.3 SECONDS (11.7-14.9)
[2021-08-04 01:01] LABS: Magnesium 2.2 mg/dL (1.6-2.6); Phosphorus 2.3 mg/dL (2.5-4.9)
[2021-08-04] MEDS: Sodium Polystyrene Sulfonate 15 GM/60 ML UDC 30 GM PO (02:15)
[2021-08-04] MEDS: 0.9% Saline Lock 10 ML Syringe IV (04:04)
[2021-08-04] MEDS: 0.9% Normal Saline 1,000 ML 50 ML IV (04:04)
[2021-08-04 05:59] LABS: Absolute Lymphocyte Count 0.65 X10^3/uL (0.83-4.51); Basophil# 0.08 X10^3/uL; Basophil% 1.3 % (0-1); Eosinophil# 0.06 X10^3/uL; Eosinophils% 0.9 % (0-5); Hemoglobin 7.2 g/dL (13.0-16.5); Lymphocyte # 0.65 X10^3/ul (0.83-4.51); Lymphocyte % 10.3 % (19-41); Mean Corp Hgb Conc 32.7 g/dL (32-36); Mean Corpuscular Hgb 29.3 pg (27.0-32.0); Mean Corpuscular Volume 89.4 fL (80-94); Mean Platelet Vol. 9.4 fl (6.2-12.0); Monocyte# 0.52 X10^3/uL; Monocyte% 8.2 % (0-10); NRBC Flagged by Analyzer 0 % (0-5); Platelet Count 200 K/mm3 (150-450); RBC Distribution Width CV 15.4 % (11.6-14.6); RBC Distribution Width SD 50.9 fl (35.1-43.9); Red Blood Count 2.46 M/mm3 (4.6-6.2); White Blood Count 6.3 K/mm3 (4.4-11.0)
[2021-08-04] MEDS: Sucralfate 1 GM Tablet PO ×3 (06:01→21:31)
[2021-08-04 06:35] LABS: Bedside Glucose 101 mg/dL (70-110)
[2021-08-04 06:45] LABS: ALB/GLOB Ratio 0.5 RATIO (0.9-2.4); AST(SGOT) 6 U/L (15-37); Alanine Aminotransfer ALT/SGPT 10 U/L (16-61); Albumin, Serum 1.6 g/dL (3.2-5.0); Alkaline Phosphatase 85 U/L (45-117); Anion Gap 10 (5-15); BUN 108 mg/dL (7-18); BUN/Creat Ratio 18.4 RATIO (10-20); Chloride 97 mmol/L (98-107); Creatinine, Serum 5.87 mg/dL (0.70-1.30); EST Glomerular Filtration Rate 10 mL/min (>60); Est Glom Filt Rate - Afr Amer 12 mL/min (>60); Estimated Creatinine Clearance 11.38 ml/min; Globulin 3.4 g/dL (2.2-4.2); Glucose 101 mg/dL (74-106); Potassium 4.8 mmol/L (3.5-5.1); Sodium Level 133 mmol/L (136-145)
--- NOTE | 2021-08-04 07:30 | PCS.PANDOC ---
PANDEMIC DOCUMENTATION INITIATED: Date: 04/18/2021 Time: 190
--- NOTE | 2021-08-04 09:13 | PCM.CONS.R ---
Assessment & Plan Assessment/Plan (1) ESRD on dialysis: (2) Acute hyperkalemia: (3) Anemia: PLAN: On MWF HD schedule missed HD session yesterday Will arrange for HD session today with 2K K normalized with kayexalate RBC transfusion as per the primary service thank you HPI Consult Data Date of Consult: 08/04/21 HPI Narrative HPI Narrative: VALENTINA MAHONEY, is a 71 M PMH of ESRD on MWF HD schedule patient presented with Hgb < 7.0 feeling weak and dizzy lately.h/o GI bleed with last EGD showed large gastric ulcer Patient did not have HD session yesterday due to access infiltration last Sunday In ED. K was 6.1. Patient was given kayexalate. repeated K this am 4.8 ROS: 12 systems review is negative except weakness PFSH Medical History A-fib Anemia CKD (chronic kidney disease) Depression Diabetes type 2, controlled Diabetic nephropathy Diabetic retinopathy ESRD (end stage renal disease) Gastrointestinal bleeding Gout Hyperlipemia Hypertension Irregular heart beat Nephrolithiasis Home Medications doxazosin 2 mg PO QHS 06/27/17 [History Last Taken Unknown] metoprolol succinate 50 mg PO SUTHSA 06/27/17 [History Last Taken 07/04/17 07:30] simvastatin 20 mg PO QHS 06/27/17 [History Last Taken Unknown] albuterol sulfate 2.5 mg INHALATION Q2H PRN 06/22/21 [History Last Taken Unknown] diltiazem HCl 180 mg PO SUTUSA 06/22/21 [History Last Taken Unknown] fluoxetine [Prozac] 20 mg PO DAILY 06/22/21 [History Last Taken Unknown] lisinopril 40 mg PO SUTUSA 06/22/21 [History Last Taken Unknown] melatonin 3 mg PO QHS 06/22/21 [History Last Taken Unknown] ergocalciferol (vitamin D2) 1,250 mcg PO MO 06/23/21 [History Last Taken Unknown] pantoprazole [Protonix] 40 mg PO BID #14 tab 06/30/21 [Rx Last Taken Unknown] sucralfate 1 g PO 1HR_ACHS #0 tab 06/30/21 [Rx Last Taken Unknown] ascorbic acid (vitamin C) [Vitamin C] 500 mg PO DAILY 08/03/21 [History Last Taken Unknown] calcium carbonate 1,200 mg PO DAILY 08/03/21 [History Last Taken Unknown] Allergy/AdvReac Type Severity Reaction Status Date / Time Iodinated Contrast Media Allergy Hives Verified 08/03/21 21:56 [Iodinated Contrast- Oral and IV Dye] Family History Mother Heart disease Father Heart disease Surgical History Hx of appendectomy Hx of arteriovenostomy for renal dialysis Hx of cholecystectomy Hx of shoulder surgery Social History (Updated 08/04/21 @ 01:56 by Myra Luz) [facility] number of children: 4 service: No current occupational status: retired Smoking Status: Former smoker second hand exposure: No alcohol intake: never substance use type: does not use caffeine: Yes what type of physical activity do you participate in: none seatbelt use: always Physical Exam Narrative AA03 AT AL No JVD S1/S2 RRR CTA Soft + BS Ext no edema LUE AVF with infiltration + bruit No focal. awake and alert. follows commands No skin rash Lab / Micro Data Result Diagrams: 08/04/21 05:40 08/04/21 05:40 Labs: Laboratory Results - last 24 hr 08/03/21 22:02: WBC 5.6, RBC 2.46 L, Hgb 7.2 L, Hct 22.4 L, MCV 91.1, MCH 29.3, MCHC 32.1, RDW Std Deviation 51.8 H, RDW Coeff of Rose 15.5 H, Plt Count 214, MPV 9.5, Immature Gran % (Auto) 0.500, Neut % (Auto) 76.8 H, Lymph % (Auto) 12.4 L, Boyle % (Auto) 7.6, Eos % (Auto) 1.6, Baso % (Auto) 1.1 H, Absolute Neuts (auto) 4.3, Absolute Lymphs (auto) 0.70 L, Nucleated RBC % 0 08/03/21 22:02: Sodium 132 L, Potassium 6.1 H*, Chloride 96 L, Carbon Dioxide 27.0, Anion Gap 9, BUN 101 H*, Creatinine 5.83 H, Estim Creat Clear Calc 11.02, Est GFR (MDRD) Af Amer 12 L, Est GFR (MDRD) Non-Af 10 L, BUN/Creatinine Ratio 17.3, Glucose 142 H, Calcium 8.4 L, Troponin I High Sens 11 08/03/21 22:02: Blood Type Cancelled, Antibody Screen Cancelled, Crossmatch See Detail 08/03/21 22:02: PT 14.3, INR 1.2 08/03/21 22:02: Phosphorus 2.3 L, Magnesium 2.2 08/03/21 22:45: Blood Type O POSITIVE, Antibody Screen NEGATIVE, Crossmatch See Detail 08/04/21 05:40: WBC 6.3, RBC 2.46 L, Hgb 7.2 L, Hct 22.0 L, MCV 89.4, MCH 29.3, MCHC 32.7, RDW Std Deviation 50.9 H, RDW Coeff of Rose 15.4 H, Plt Count 200, MPV 9.4, Immature Gran % (Auto) 0.300, Neut % (Auto) 79.0 H, Lymph % (Auto) 10.3 L, Boyle % (Auto) 8.2, Eos % (Auto) 0.9, Baso % (Auto) 1.3 H, Absolute Neuts (auto) 5.0, Absolute Lymphs (auto) 0.65 L, Nucleated RBC % 0 08/04/21 05:40: Sodium 133 L, Potassium 4.8, Chloride 97 L, Carbon Dioxide 26.0, Anion Gap 10, BUN 108 H*, Creatinine 5.87 H, Estim Creat Clear Calc 11.38, Est GFR (MDRD) Af Amer 12 L, Est GFR (MDRD) Non-Af 10 L, BUN/Creatinine Ratio 18.4, Glucose 101, Calcium 8.0 L, Total Bilirubin 0.40, AST 6 L, ALT 10 L, Alkaline Phosphatase 85, Total Protein 5.0 L, Albumin 1.6 L, Globulin 3.4, Albumin/Globulin Ratio 0.5 L 08/04/21 05:59: POC Glucose 101 Micro: Microbiology 08/03/21 22:40 Stool Stool Occult Blood (KIA[facility]) - Final Occult Blood Positive
[2021-08-04] MEDS: Calcium (Elemental) 500 MG Tablet 1000 MG PO (09:42)
[2021-08-04] MEDS: Metoprolol(XL)Succ 50 MG Tablet PO (09:42)
[2021-08-04] MEDS: Ascorbic Acid 500 MG Tablet PO (09:42)
[2021-08-04] MEDS: FLUoxetine 20 MG Capsule PO (09:44)
--- NOTE | 2021-08-04 11:04 | PN.HOSP_ITS ---
Documented by User: Ignacia Gonzales NP-C 08/04/21 11:23 Subjective Subjective Patient seen and examined. Patient lying in bed eyes closed. Patient states that he is tired. Patient denies abdominal pain. Objective Data Objective Data Vital Signs: Vital Signs Temp Pulse Resp BP Pulse Ox 97.9 F 90 16 175/75 H 95 08/04/21 09:30 08/04/21 09:42 08/04/21 09:30 08/04/21 09:30 08/04/21 09:30 Oxygen Flow Rate (L/min) 2 Oxygen Delivery Method Nasal Cannula Weight: 157 lb 6.561 oz Body Mass Index (BMI) 23.1 Intake & Output: Intake and Output for Last 24 Hours 08/02/21 08/03/21 08/04/21 23:59 23:59 23:59 Intake Total 150 / 150 Balance 150 / 150 Lab / Micro Data Result Diagrams: 08/04/21 05:40 08/04/21 05:40 Labs: Laboratory Results - last 24 hr 08/03/21 22:02: WBC 5.6, RBC 2.46 L, Hgb 7.2 L, Hct 22.4 L, MCV 91.1, MCH 29.3, MCHC 32.1, RDW Std Deviation 51.8 H, RDW Coeff of Rose 15.5 H, Plt Count 214, MPV 9.5, Immature Gran % (Auto) 0.500, Neut % (Auto) 76.8 H, Lymph % (Auto) 12.4 L, Elliott % (Auto) 7.6, Eos % (Auto) 1.6, Baso % (Auto) 1.1 H, Absolute Neuts (auto) 4.3, Absolute Lymphs (auto) 0.70 L, Nucleated RBC % 0 08/03/21 22:02: Sodium 132 L, Potassium 6.1 H*, Chloride 96 L, Carbon Dioxide 27.0, Anion Gap 9, BUN 101 H*, Creatinine 5.83 H, Estim Creat Clear Calc 11.02, Est GFR (MDRD) Af Amer 12 L, Est GFR (MDRD) Non-Af 10 L, BUN/Creatinine Ratio 17.3, Glucose 142 H, Calcium 8.4 L, Troponin I High Sens 11 08/03/21 22:02: Blood Type Cancelled, Antibody Screen Cancelled, Crossmatch See Detail 12/01/21 22:02: PT 14.3, INR 1.2 08/03/21 22:02: Phosphorus 2.3 L, Magnesium 2.2 08/03/21 22:45: Blood Type O POSITIVE, Antibody Screen NEGATIVE, Crossmatch See Detail 08/04/21 05:40: WBC 6.3, RBC 2.46 L, Hgb 7.2 L, Hct 22.0 L, MCV 89.4, MCH 29.3, MCHC 32.7, RDW Std Deviation 50.9 H, RDW Coeff of Rose 15.4 H, Plt Count 200, MPV 9.4, Immature Gran % (Auto) 0.300, Neut % (Auto) 79.0 H, Lymph % (Auto) 10.3 L, Elliott % (Auto) 8.2, Eos % (Auto) 0.9, Baso % (Auto) 1.3 H, Absolute Neuts (auto) 5.0, Absolute Lymphs (auto) 0.65 L, Nucleated RBC % 0 08/04/21 05:40: Sodium 133 L, Potassium 4.8, Chloride 97 L, Carbon Dioxide 26.0, Anion Gap 10, BUN 108 H*, Creatinine 5.87 H, Estim Creat Clear Calc 11.38, Est GFR (MDRD) Af Amer 12 L, Est GFR (MDRD) Non-Af 10 L, BUN/Creatinine Ratio 18.4, Glucose 101, Calcium 8.0 L, Total Bilirubin 0.40, AST 6 L, ALT 10 L, Alkaline Phosphatase 85, Total Protein 5.0 L, Albumin 1.6 L, Globulin 3.4, Albumin/Globulin Ratio 0.5 L 08/04/21 05:59: POC Glucose 101 Micro: Microbiology 08/03/21 22:40 Stool Stool Occult Blood (KIAH) - Final Occult Blood Positive Physical Exam Const oriented x3 and no apparent distress Orientation / Consciousness: lethargic HEENT head/scalp atraumatic Head and Scalp: normocephalic Eyes conjunctivae normal and no scleral icterus Neck full ROM and supple General: trachea midline Resp normal respiratory effort and clear to auscultation bilaterally Effort and Inspection: able to speak in complete sentences and symmetric chest movement Cardio regular rate, regular rhythm, S1 normal heart sound and S2 normal heart sound GI normal to inspection, nondistended, normoactive bowel sounds, soft to palpation and non-tender Extremity normal to inspection, full ROM and no clubbing, cyanosis or edema Peripheral Pulses: Yes pulses 2+ throughout Neuro oriented x3, moves all extremities, no focal motor deficits and no sensory de ficits noted Sensorium / Orientation: awake and alert Psych affect normal Assessment & Plan Assessment/Plan (1) Anemia: QUALIFIERS: Anemia type: unspecified type Qualified Code(s): D64.9 - Anemia, unspecified (2) Acute GI bleeding: (3) Acute hyperkalemia: (4) ESRD on dialysis: PLAN: Patient is a 71-year-old male who presents with acute blood loss secondary to GI bleed. Patient has a history of gastric ulcers, GI consulted. Patient received 1 unit PRBC on 08/03/2021. 1. Acute blood loss anemia secondary to GI bleed -Hemoglobin stable at 7.2 -Daily CBC ordered -GI consulted -Continue Carafate and Protonix 2. End-stage renal disease on hemodialysis with hyperkalemia -Patient has not been dialyzed for the past 2 days, normally is dialyzed every day but per nephrology in [place] -Nephrology consulted -Per nephrology note patient will undergo dialysis again today -Potassium 4.8 today corrected with Kayexalate administration 3. Diabetes mellitus type 2 -AC at bedtime blood sugars are sliding scale insulin ordered 4. Paroxysmal A. fib -Currently sinus rhythm DVT prophylaxis-SCDs This patient was seen by DONNA Coughlin under the supervision of Dr. Fleming. Documented by User: Dr. Jamie Fleming MD 08/04/21 11:38 Objective Data Lab / Micro Data Result Diagrams: 08/04/21 05:40 08/04/21 05:40 Assessment & Plan Addt'l Comments This patient was seen in conjunction with DONNA oCughlin . I have independently interviewed and examined the patient and reviewed pertinent historical, laboratory, and other data. Please refer to DONNA Coughlin note for details of this patient's presentation, findings, and recommendations. I have reviewed DONNA Coughlin note and concur with documented findings. In brief, patient is a 71-year-old gentleman with multiple comorbidities including end-stage renal disease who was sent to the ED with progressive generalized weakness and lightheadedness. Patient had apparently not been able to be dialyzed due to his AV fistula infiltrated. He was found to be anemic on admission with hemoglobin of 6.7 and potassium of 6.1 admitted to monitored bed for subsequent management Physical Examination: GENERAL: cooperative HEENT: Atraumatic; EYES; Anicteric, Normal Conjunctiva NECK; supple, normal thyroid, RESPIRATORY: Diminished to auscultation CARDIOVASCULAR: Regular S1 S2, GI: soft, normoactive bowel sounds, : No Renal angle tenderness; EXTREMITIES: AV fistula left forearm with palpable thrill MUSCULOSKELETAL: no muscle waisting NEURO: Awake; no lateralizing signs. SKIN: No Rash PSYCH; Flat affect Assessment: 1. Severe anemia secondary to combination of anemia as a result of ESRD as well as acute blood loss anemia 2. End-stage renal disease 3. Hyperkalemia 4. Diabetes mellitus type 2 5. Essential hypertension 6. Dyslipidemia 7. GERD 8. Paroxysmal A. fib Recommendations: 1. I have discussed the results of my overview and impressions with the patient 2. Options for management were reviewed Charges/Coding Visit Charges Inpatient E&M: 23698 [facility] Hosp L3
--- NOTE | 2021-08-04 11:17 | CASEMGMT ---
Patient is from [facility]. TRISTA met with patient, introduced self and role at [facility]. SW asked patient if his plan is to return to [facility] for rehab. Patient confirmed that is his plan. TRISTA faxed updates to [facility]. Anjana CANTU
[2021-08-04 12:30] LABS: Bedside Glucose 89 mg/dL (70-110)
--- NOTE | 2021-08-04 14:22 | CHAPLAIN ---
Type of Pastoral Visit _x__ Initial Visit ___ Follow-up Visit ___ On-call Visit ___ General Patient Visit ___ Spiritual Assessment ___ Family Conference ___ Bereavement ___ Rapid Response ___ Code Blue ___ Other (describe below) Pastoral Care Referral From _x__ Patient ___ Family ___ Nurse ___ Physician ___ Concrete Gun Operator ___ Public Improvement Inspector ___ Other (describe below) Sacrament/Intervention _x__ Active listening ___ Anointing ___ Religious ___ Bereavement ___ Communion _x__ Katherine exploration ___ ___ Life review _x__ Prayer ___ Reconciliation ___ Sacrament of Sick _x__ Supportive presence ___ Wedding ___ Other (describe below) Pastoral Comments patient states that his loss of strength is most of his concern and that he also hopes that home help will be approved and provided; pt welcomes prayer and presence for spiritual care
[2021-08-04] MEDS: proCHLORPERazine 10 MG/2 ML Vial 5 MG IV (15:14)
[2021-08-04 17:30] LABS: Bedside Glucose 110 mg/dL (70-110)
--- NOTE | 2021-08-04 19:03 | DIALYSIS ---
HD X 3.5 HOURS UF-2500ML TOLERATED TX WELL. [facility] ECCHYMOTIC WITH A LARGE INFILTRATE FROM PREVIOUS STICKS-- STUCK 2 17GAUGE NEEDLES WITH BFR AT 250 STASIS AT [facility] REPORT TO TITI ALAN
[2021-08-04] MEDS: Doxazosin 1 MG Tablet 2 MG PO (21:31)
[2021-08-04] MEDS: MELATONIN 3 MG TABLET PO (21:32)
[2021-08-04] MEDS: Atorvastatin Calcium 10 MG Tablet PO (21:32)
[2021-08-04] MEDS: Insulin Lispro 100 UNIT/ML INSULN.PEN SC (21:47)
[2021-08-04 22:30] LABS: Bedside Glucose 159 mg/dL (70-110)
[2021-08-05] VITALS (9 sets, daily range): BP systolic 143–158; BP diastolic 66–87; PULSE 80–88; RESP 16–18; TEMP 36.7–36.9; O2SAT 86–98
[2021-08-05] MEDS: Sucralfate 1 GM Tablet PO ×2 (06:18→11:45)
[2021-08-05 06:46] LABS: Bedside Glucose 86 mg/dL (70-110)
[2021-08-05 06:53] LABS: Absolute Lymphocyte Count 0.45 X10^3/uL (0.83-4.51); Absolute Neutrophil Count 3.8 X10^3/uL (2.0-7.7); Basophil# 0.06 X10^3/uL; Basophil% 1.3 % (0-1); Eosinophil# 0.06 X10^3/uL; Eosinophils% 1.3 % (0-5); Hematocrit 24.8 % (40-54); Hemoglobin 7.8 g/dL (13.0-16.5); Lymphocyte # 0.45 X10^3/ul (0.83-4.51); Lymphocyte % 9.4 % (19-41); Mean Corp Hgb Conc 31.5 g/dL (32-36); Mean Corpuscular Hgb 28.5 pg (27.0-32.0); Mean Corpuscular Volume 90.5 fL (80-94); Mean Platelet Vol. 9.4 fl (6.2-12.0); Monocyte# 0.45 X10^3/uL; Monocyte% 9.4 % (0-10); NRBC Flagged by Analyzer 0 % (0-5); Neutrophil # 3.76 X10^3/uL (2.7-7.7); Neutrophil % 78.2 % (47-70); POSITIVE DIFFERENTIAL YES; Platelet Count 209 K/mm3 (150-450); RBC Distribution Width CV 15.2 % (11.6-14.6); RBC Distribution Width SD 50.7 fl (35.1-43.9); Red Blood Count 2.74 M/mm3 (4.6-6.2); White Blood Count 4.8 K/mm3 (4.4-11.0)
[2021-08-05 07:03] LABS: Differential Indicated SCAN CRITERIA MET
[2021-08-05 07:11] LABS: Anisocytosis 1+
[2021-08-05 07:22] LABS: Anion Gap 7 (5-15); BUN 55 mg/dL (7-18); BUN/Creat Ratio 13.2 RATIO (10-20); Calcium,Total 7.9 mg/dL (8.5-10.1); Chloride 98 mmol/L (98-107); Creatinine, Serum 4.16 mg/dL (0.70-1.30); EST Glomerular Filtration Rate 15 mL/min (>60); Est Glom Filt Rate - Afr Amer 18 mL/min (>60); Estimated Creatinine Clearance 16.05 ml/min; Glucose 80 mg/dL (74-106); Magnesium 1.8 mg/dL (1.6-2.6); Potassium 4.2 mmol/L (3.5-5.1); Sodium Level 134 mmol/L (136-145)
--- NOTE | 2021-08-05 09:30 | CASEMGMT ---
Patient is ready for discharge back to [facility] today. TRISTA called Jason at [facility] and left her a voice mail letting her know patient will be returning. Anjana Cagle ACTIVITIES VOLUNTEER ALONDRA
[2021-08-05] MEDS: Calcium (Elemental) 500 MG Tablet 1000 MG PO (10:10)
[2021-08-05] MEDS: Ascorbic Acid 500 MG Tablet PO (10:11)
[2021-08-05] MEDS: FLUoxetine 20 MG Capsule PO (10:11)
--- NOTE | 2021-08-05 11:43 | PCM.DC ---
Discharge Instructions Diet Discharge Diet: Low fat / Low cholesterol Activity Discharge Activity: Return to Normal Activity Dressing / Incision Call your doctor if you observe: Shortness of breath, Fainting spells, Swelling in the ankles and Chest pain Follow Up Care Please Follow Up With: Lloyd Bernal When: 1-2 weeks Test Results: Test results from this visit will be discussed in further detail at your follow-up appointment, if applicable. Discharge Plan Admission Admit Date/Time: 08/03/21 23:45 Primary Reason for Your Visit: GI bleed Attending Provider: Jamie Fleming Primary Care Provider: Lloyd Bernal Consulting Providers: Jazmine Corcoran Discharge Orders/Prescriptions Prescriptions: New pantoprazole 40 mg tablet,delayed release (DR/EC) 40 mg PO BID Qty: 60 RF: 0 Continued doxazosin 1 MG tablet 2 mg PO QHS RF: 0 metoprolol succinate 50 MG tablet extended release 24 hr 50 mg PO SUTHSA RF: 0 Hold Instructions: Resume on 07/07/21. simvastatin 40 MG tablet 20 mg PO QHS RF: 0 albuterol sulfate 2.5 mg /3 mL (0.083 %) Solution For Nebulization 2.5 mg INHALATION Q2H PRN (Reason: SOB) RF: 0 diltiazem HCl 180 mg Capsule,Extended Release 24hr 180 mg PO SUTUSA RF: 0 Hold Instructions: Resume on 07/07/21. melatonin 3 mg Tablet 3 mg PO QHS RF: 0 lisinopril 40 mg Tablet 40 mg PO SUTUSA RF: 0 Hold Instructions: Resume on 07/07/21. fluoxetine [Prozac] 20 mg Capsule 20 mg PO DAILY RF: 0 sucralfate 1 gram Tablet 1 g PO 1HR_ACHS Qty: 0 RF: 0 calcium carbonate 600 mg calcium (1,500 mg) Tablet 1,200 mg PO DAILY RF: 0 Discontinued ergocalciferol (vitamin D2) 1,250 mcg (50,000 unit) Capsule 1,250 mcg PO MO RF: 0 pantoprazole [Protonix] 40 mg tablet,delayed release (DR/EC) 40 mg PO BID Qty: 14 RF: 0 ascorbic acid (vitamin C) [Vitamin C] 500 mg Tablet 500 mg PO DAILY RF: 0 Referrals / Follow Up: Lloyd Bernal MD [Primary Care Provider] - FriendHermes DO [STAFF PHYSICIAN] - In 1 Week Disposition Disposition (needs filled in before D/C Order can be placed): Group Home Facility
[2021-08-05 11:50] LABS: Bedside Glucose 114 mg/dL (70-110)
--- NOTE | 2021-08-05 11:50 | PCM.DC.SUM ---
Providers Date of Admission: 08/03/21 Primary Care Physician: Dr. Lloyd Bernal MD Consultations 08/03/21 23:13 Consult: Gastroenterology Routine Consulting Provider: Nanci G[facility] Reason for Consult: upper GI Bleed, large gastric ulcer EMERGENT Consult: No Notified: Yes Date Notified: 08/03/21 Time Notified: 22:13 Method of Notification: Verbal 08/04/21 01:38 Consult: Nephrology Routine Consulting Provider: Jazmine Corcoran Reason for Consult: Hyperkalemia, ESRD on hemodialysis EMERGENT Consult: No Notified: Yes Date Notified: 08/04/21 Time Notified: 00:14 Method of Notification: Page Method of Consult:: Telemedicine Comments:: Paged by ER Reason For Visit: GI BLEED AND HYPERKALEMIA, ESRD ON HD Diagnosis Discharge Diagnosis (1) Anemia: Status: Acute Code(s): D64.9 - Anemia, unspecified Qualifiers: Anemia type: unspecified type Qualified Code(s): D64.9 - Anemia, unspecified (2) Acute GI bleeding: Status: Acute Code(s): K92.2 - Gastrointestinal hemorrhage, unspecified (3) Acute hyperkalemia: Status: Acute Code(s): E87.5 - Hyperkalemia (4) ESRD on dialysis: Status: Acute Code(s): N18.6 - End stage renal disease; Z99.2 - Dependence on renal dialysis Medications at Discharge Home Medications doxazosin 2 mg PO QHS 06/27/17 metoprolol succinate 50 mg PO SUTHSA 06/27/17 simvastatin 20 mg PO QHS 06/27/17 albuterol sulfate 2.5 mg INHALATION Q2H PRN 06/22/21 diltiazem HCl 180 mg PO SUTUSA 06/22/21 fluoxetine [Prozac] 20 mg PO DAILY 06/22/21 lisinopril 40 mg PO SUTUSA 06/22/21 melatonin 3 mg PO QHS 06/22/21 sucralfate 1 g PO 1HR_ACHS #0 tab 06/30/21 calcium carbonate 1,200 mg PO DAILY 08/03/21 pantoprazole 40 mg PO BID #60 tab 08/05/21 Hospital Course Operations None Procedures Blood transfusion Summary of Care Provided Minutes Spent on Discharge: 35 Hospital Course: Patient is a 71-year-old male who presented with suspected GI bleed. Patient received 1 unit packed red blood cells on 08/03/2021 and hemoglobin stabilized, 7.8 on discharge. Patient instructed to follow-up with Dr. Interiano within 1 week. Patient will be discharged home on Carafate as well as Protonix. Recommendations for CBC to be repeated on 08/07/2021. Patient also admitted with hyperkalemia which has resolved. Physical Exam Const oriented x3 and no apparent distress Orientation / Consciousness: lethargic HEENT head/scalp atraumatic Eyes conjunctivae normal and no scleral icterus Neck full ROM and supple General: trachea midline Resp normal respiratory effort and clear to auscultation bilaterally Effort and Inspection: able to speak in complete sentences and symmetric chest movement Cardio regular rate, regular rhythm, S1 normal heart sound and S2 normal heart sound GI normal to inspection, nondistended, normoactive bowel sounds, soft to palpation and non-tender Extremity normal to inspection, full ROM and no clubbing, cyanosis or edema Neuro oriented x3, moves all extremities, no focal motor deficits and no sensory deficits noted Sensorium / Orientation: awake and alert Psych affect normal Weight / BMI Weight Weight: 157 lb 10.088 oz Body Mass Index (BMI) 23.1 ABG / Lab / Microbiology Data Result Diagrams: 08/05/21 06:20 08/05/21 06:20 Laboratory: Laboratory Results - last 24 hr 08/04/21 12:25: POC Glucose 89 08/04/21 17:26: POC Glucose 110 08/04/21 21:36: POC Glucose 159 H 08/05/21 06:17: POC Glucose 86 08/05/21 06:20: WBC 4.8, RBC 2.74 L, Hgb 7.8 L, Hct 24.8 L, MCV 90.5, MCH 28.5, MCHC 31.5 L, RDW Std Deviation 50.7 H, RDW Coeff of Rose 15.2 H, Plt Count 209, MPV 9.4, Immature Gran % (Auto) 0.400, Neut % (Auto) 78.2 H, Lymph % (Auto) 9.4 L, [place] % (Auto) 9.4, Eos % (Auto) 1.3, Baso % (Auto) 1.3 H, Absolute Neuts (auto) 3.8, Absolute Lymphs (auto) 0.45 L, Nucleated RBC % 0, Anisocytosis 1+ 08/05/21 06:20: Sodium 134 L, Potassium 4.2, Chloride 98, Carbon Dioxide 29.0, Anion Gap 7, BUN 55 H, Creatinine 4.16 H, Estim Creat Clear Calc 16.05, Est GFR (MDRD) Af Amer 18 L, Est GFR (MDRD) Non-Af 15 L, BUN/Creatinine Ratio 13.2, Glucose 80, Calcium 7.9 L, Magnesium 1.8 Microbiology: Microbiology 08/03/21 22:40 Stool Stool Occult Blood (KIAH) - Final Occult Blood Positive D/C Instructions Discharge Diet: Low fat / Low cholesterol Call your doctor if you observe: Shortness of breath, Fainting spells, Swelling in the ankles and Chest pain Please Follow Up With: Lloyd Bernal When: 1-2 weeks Meaningful Use Info Meaningful Use Diagnoses (Choose all that apply): None applicable Discharge Plan Admission Admit Date/Time: 08/03/21 23:45 Primary Reason for Your Visit: GI bleed Attending Provider: Jamie Fleming Primary Care Provider: Lloyd Bernal Consulting Providers: Jazmine Corcoran Discharge Orders/Prescriptions Prescriptions: New pantoprazole 40 mg tablet,delayed release (DR/EC) 40 mg PO BID Qty: 60 RF: 0 Continued doxazosin 1 MG tablet 2 mg PO QHS RF: 0 metoprolol succinate 50 MG tablet extended release 24 hr 50 mg PO SUTHSA RF: 0 Hold Instructions: Resume on 07/07/21. simvastatin 40 MG tablet 20 mg PO QHS RF: 0 albuterol sulfate 2.5 mg /3 mL (0.083 %) Solution For Nebulization 2.5 mg INHALATION Q2H PRN (Reason: SOB) RF: 0 diltiazem HCl 180 mg Capsule,Extended Release 24hr 180 mg PO SUTUSA RF: 0 Hold Instructions: Resume on 07/07/21. melatonin 3 mg Tablet 3 mg PO QHS RF: 0 lisinopril 40 mg Tablet 40 mg PO SUTUSA RF: 0 Hold Instructions: Resume on 07/07/21. fluoxetine [Prozac] 20 mg Capsule 20 mg PO DAILY RF: 0 sucralfate 1 gram Tablet 1 g PO 1HR_ACHS Qty: 0 RF: 0 calcium carbonate 600 mg calcium (1,500 mg) Tablet 1,200 mg PO DAILY RF: 0 Discontinued ergocalciferol (vitamin D2) 1,250 mcg (50,000 unit) Capsule 1,250 mcg PO MO RF: 0 pantoprazole [Protonix] 40 mg tablet,delayed release (DR/EC) 40 mg PO BID Qty: 14 RF: 0 ascorbic acid (vitamin C) [Vitamin C] 500 mg Tablet 500 mg PO DAILY RF: 0 Referrals / Follow Up: Lloyd Bernal MD [Primary Care Provider] - Hermes Interiano DO [STAFF PHYSICIAN] - In 1 Week Disposition Disposition (needs filled in before D/C Order can be placed): Residential Facility
--- NOTE | 2021-08-05 11:51 | PCM.TXEXTCAR ---
Diet 08/04/21 12:39 Diet: Clear Liquid Is pt able to select menu?: No Diet Comments: No Reds/purples Routine Orders/Code Status Enema Type: Fleetz Enema Frequency: Daily PRN Suppository Type: Dulcolax 10mg Suppository Frequency: Daily PRN Routine Lab Work: CBC (2days) Code Status: DNRCC-A Wound(s) coccyx: Wound Type: Pressure Injury Suggestions for Active Care Change Position every (hours): 2 Therapies Physical Therapy: Eval and Treat Occupational Therapy: Eval and Treat Problem/Diagnosis (1) Anemia: Status: Acute (2) Acute GI bleeding: Status: Acute (3) Acute hyperkalemia: Status: Acute (4) ESRD on dialysis: Status: Acute Allergies/Procedures Done in Hospital Allergies Iodinated Contrast Media [Iodinated Contrast- Oral and IV Dye] Allergy (Verified 08/03/21 21:56) Hives Procedures: Blood transfusion Type of Care/Length of Stay Estimated LOS: Convalescent Care Less Than 30 days Type of Care Needed: Skilled Rehab Potential: Fair Prognosis: Fair Additional Orders/Day of Discharge Day of Discharge: 08/05/21 Dietary and Speech Recommendations Dietitian Recommendations/Changes: When medically indicated, recommend advance diet as tolerated to renal-general (no protein restriction) w/ 120mL Nepro CarbSteady ONS 4x/day. Daily wts. Follow Up Care Please Follow Up With: Lloyd Bernal When: 2 weeks Please Follow Up With: Hermes Interiano DO When: 1 week Discharge Plan Admission Admit Date/Time: 08/03/21 23:45 Primary Reason for Your Visit: GI bleed Attending Provider: Jamie Fleming Primary Care Provider: Lloyd Bernal Consulting Providers: Jazmine Corcoran Discharge Orders/Prescriptions Prescriptions: New pantoprazole 40 mg tablet,delayed release (DR/EC) 40 mg PO BID Qty: 60 RF: 0 Continued doxazosin 1 MG tablet 2 mg PO QHS RF: 0 metoprolol succinate 50 MG tablet extended release 24 hr 50 mg PO SUTHSA RF: 0 Hold Instructions: Resume on 07/07/21. simvastatin 40 MG tablet 20 mg PO QHS RF: 0 albuterol sulfate 2.5 mg /3 mL (0.083 %) Solution For Nebulization 2.5 mg INHALATION Q2H PRN (Reason: SOB) RF: 0 diltiazem HCl 180 mg Capsule,Extended Release 24hr 180 mg PO SUTUSA RF: 0 Hold Instructions: Resume on 07/07/21. melatonin 3 mg Tablet 3 mg PO QHS RF: 0 lisinopril 40 mg Tablet 40 mg PO SUTUSA RF: 0 Hold Instructions: Resume on 07/07/21. fluoxetine [Prozac] 20 mg Capsule 20 mg PO DAILY RF: 0 sucralfate 1 gram Tablet 1 g PO 1HR_ACHS Qty: 0 RF: 0 calcium carbonate 600 mg calcium (1,500 mg) Tablet 1,200 mg PO DAILY RF: 0 Discontinued ergocalciferol (vitamin D2) 1,250 mcg (50,000 unit) Capsule 1,250 mcg PO MO RF: 0 pantoprazole [Protonix] 40 mg tablet,delayed release (DR/EC) 40 mg PO BID Qty: 14 RF: 0 ascorbic acid (vitamin C) [Vitamin C] 500 mg Tablet 500 mg PO DAILY RF: 0 Referrals / Follow Up: Lloyd Bernal MD [Primary Care Provider] - FriendHermes DO [STAFF PHYSICIAN] - In 1 Week Disposition Disposition (needs filled in before D/C Order can be placed): Custodial Facility
[2021-08-05] MEDS: 0.9% Saline Lock 10 ML Syringe IV ×2 (12:56→14:55)
--- NOTE | 2021-08-05 13:19 | NURSING ---
Read and reviewed SN documentation.
--- NOTE | 2021-08-05 13:20 | NURSING ---
Read and reviewed SN documentation.
--- NOTE | 2021-08-05 13:23 | CASEMGMT ---
Addendum entered by Alejandra Palmer 08/05/21 15:15: Dialysis nurse here and running pt at this time. Pt to discharge back to [facility] after dialysis. Amado ALAN CM Original Note: Pt normally has dialysis M,T,W,F at [facility] and per Ramana at [facility], pt cannot be run at [facility] on return today but he states pt does need run today prior to returning to [facility] as he has only had two treatments this week and will not get run at [facility] again until sunday. Call out to Dr. Valencia for orders. CM to follow. Amado ALAN CM
--- NOTE | 2021-08-05 14:14 | PHA.DC.MR ---
Pharmacy Service has performed discharge medication reconciliation for this patient upon transfer to [facility]. Home Medications doxazosin 2 mg PO QHS 06/27/17 metoprolol succinate 50 mg PO SUTHSA 06/27/17 simvastatin 20 mg PO QHS 06/27/17 albuterol sulfate 2.5 mg INHALATION Q2H PRN 06/22/21 diltiazem HCl 180 mg PO SUTUSA 06/22/21 fluoxetine [Prozac] 20 mg PO DAILY 06/22/21 lisinopril 40 mg PO SUTUSA 06/22/21 melatonin 3 mg PO QHS 06/22/21 sucralfate 1 g PO 1HR_ACHS #0 tab 06/30/21 calcium carbonate 1,200 mg PO DAILY 08/03/21 pantoprazole 40 mg PO BID #60 tab 08/05/21 The patient's discharge medication list was reviewed for discrepancies and discrepancies were resolved.
--- NOTE | 2021-08-05 14:28 | CASEMGMT ---
TRISTA called Jason at [facility] again and left her another voice mail letting her know patient will be getting dialysis today before he returns. TRISTA told her patient will likely not be back until this evening. TRISTA faxed orders to [facility]. TRISTA called patient's and let her know patient will be headed back to [facility] today. She had some medical questions. TRISTA told her SW can see if the nurse can call and answer these questions. TRISTA then passed along this message to the RN. Plan: d/c back to [facility] under skilled level of care. [facility] will transport via cot. Anjana Cagle PADDING MACHINE OPERATOREdi CANTU
[2021-08-05] MEDS: proCHLORPERazine 10 MG/2 ML Vial 5 MG IV (14:55)
--- NOTE | 2021-08-05 16:10 | NURSING ---
Report called to Claire CORTÉS at [facility].
[2021-08-05 16:31] LABS: Bedside Glucose 86 mg/dL (70-110)
--- NOTE | 2021-08-05 19:56 | DIALYSIS ---
Hemodialysis today x 2hrs UF -1000mL removed. Pt tolerated tx well Pt stable Report to Milagros Guido pt stable
== END 2021-08-05 20:45 | disposition skilled nursing facility (03) | DRG 377 ==
LOC: ED 08-04 00:20 → PCU 08-04 00:31
PROVIDERS: Admitting Provider Internal Medicine; Emergency Provider Emergency Medicine; PCP Family Medicine; Visit Provider Internal Medicine
DX: K92.2 Gastrointestinal hemorrhage, unspecified (principal); N18.6 End stage renal disease; D62 Acute posthemorrhagic anemia; I12.0 Hypertensive chronic kidney disease with stage 5 chronic kidney disease or end stage renal disease; E11.22 Type 2 diabetes mellitus with diabetic chronic kidney disease; Z91.15 Patient's noncompliance with renal dialysis; E78.5 Hyperlipidemia, unspecified; E87.5 Hyperkalemia; F32.A Depression, unspecified; E11.319 Type 2 diabetes mellitus with unspecified diabetic retinopathy without macular edema; I48.0 Paroxysmal atrial fibrillation; K21.9 Gastro-esophageal reflux disease without esophagitis; M10.9 Gout, unspecified; Z66 Do not resuscitate; Z90.49 Acquired absence of other specified parts of digestive tract; Z99.2 Dependence on renal dialysis; Z87.442 Personal history of urinary calculi; Z87.19 Personal history of other diseases of the digestive system; Z79.899 Other long term (current) drug therapy
CPT/HCPCS: 36415; 80048; 80053; 82274; 82962; 83735; 84100; 84484; 85025; 85610; 86850; 86900; 86901; 86920; 86922; 87426; 90937; 93005; 94640; 97110; 97166; 97530; 97802; 99285; J7030; J7050; P9016; A4216; G0257; J2916

== ENCOUNTER 2021-10-06 09:44 | Day surgery (SDC) | payer MEDICARE, SELFPAY ==
--- NOTE | 2021-10-05 13:08 | EKG12_ITS ---
Test Reason : PRE OP Blood Pressure : / mmHG Vent. Rate : 091 BPM Atrial Rate : 091 BPM P-R Int : 176 ms QRS Dur : 080 ms QT Int : 378 ms P-R-T Axes : 053 022 032 degrees QTc Int : 464 ms Normal sinus rhythm Normal ECG Confirmed by CORAL WALTER, WALE ([id number]), sound editor LOAN WILKS ([id number]) on 10/06/2021 7:10:51 AM Referred By: Tree Long Confirmed By:WALE MONCADA MD
[2021-10-05 13:35] LABS: Hematocrit 31.7 % (40-54); Hemoglobin 10.4 g/dL (13.0-16.5); Mean Corp Hgb Conc 32.8 g/dL (32-36); Mean Corpuscular Volume 85.4 fL (80-94); Mean Platelet Vol. 8.7 fl (6.2-12.0); Platelet Count 151 K/mm3 (150-450); RBC Distribution Width CV 15.5 % (11.6-14.6); RBC Distribution Width SD 47.4 fl (35.1-43.9); Red Blood Count 3.71 M/mm3 (4.6-6.2); White Blood Count 3.4 K/mm3 (4.4-11.0)
[2021-10-05 14:04] LABS: Anion Gap 6 (5-15); BUN 56 mg/dL (7-18); BUN/Creat Ratio 11.2 RATIO (10-20); Calcium,Total 8.7 mg/dL (8.5-10.1); Chloride 95 mmol/L (98-107); Creatinine, Serum 5.01 mg/dL (0.70-1.30); EST Glomerular Filtration Rate 12 mL/min (>60); Est Glom Filt Rate - Afr Amer 15 mL/min (>60); Glucose 127 mg/dL (74-106); Potassium 4.2 mmol/L (3.5-5.1); Sodium Level 134 mmol/L (136-145)
[2021-10-06] VITALS (9 sets, daily range): BP systolic 94–157; BP diastolic 54–90; PULSE 62–97; RESP 14–62; TEMP 36.4–36.9; O2SAT 16–100; BMI 22.6
--- NOTE | 2021-10-06 10:18 | PCM.HP.BLA ---
History and Physical Date of Admission: 10/06/21 Visit Reasons: discuss surgery Chief Complaint: discuss surgery Allergies Iodinated Contrast Media [Iodinated Contrast- Oral and IV Dye] Allergy (Verified 10/05/21 12:28) Hives Medications doxazosin 1 mg PO QHS 06/27/17 [History Confirmed 10/05/21] metoprolol succinate 50 mg PO SUTHSA 06/27/17 [History Confirmed 10/05/21] simvastatin 10 mg PO QHS 06/27/17 [History Confirmed 10/05/21] albuterol sulfate 2.5 mg INHALATION Q2H PRN 06/22/21 [History Confirmed 10/05/21] diltiazem HCl 180 mg PO SUTHSA 06/22/21 [History Confirmed 10/05/21] fluoxetine [Prozac] 20 mg PO DAILY 06/22/21 [History Confirmed 10/05/21] lisinopril 40 mg PO SUTHSA 06/22/21 [History Confirmed 10/05/21] melatonin 3 mg PO QHS 06/22/21 [History Confirmed 10/05/21] sucralfate 1 g PO 1HR_ACHS #0 tab 06/30/21 [Rx Confirmed 10/05/21] calcium carbonate 1,200 mg PO DAILY 08/03/21 [History Confirmed 10/05/21] pantoprazole 40 mg PO BID #60 tab 08/05/21 [Rx Confirmed 10/05/21] B gdxhjid-R-oloqu acid-Zn tablet 1 tab PO DAILY 09/08/21 [History Confirmed 10/05/21] PFSH Medical History (Updated 10/05/21 @ 12:43 by Manisha Marshall) Anemia CKD (chronic kidney disease) Depression Diabetes Diabetes type 2, controlled Diabetic nephropathy Diabetic retinopathy Dietary restriction ESRD (end stage renal disease) Former smoker Gastrointestinal bleeding Gout History of atrial fibrillation History of echocardiogram Hx of aspiration pneumonitis Hyperlipemia Hypertension Irregular heart beat Nephrolithiasis On home oxygen therapy Problem with dialysis access Surgical History (Updated 10/05/21 @ 12:43 by Manisha Marshall) Hx of appendectomy Hx of arteriovenostomy for renal dialysis Hx of cholecystectomy Hx of esophagogastroduodenoscopy Hx of shoulder surgery Family History Mother Heart disease Father Heart disease Social History housing: snf number of children: 4 current occupational status: retired Smoking Status: Former smoker second hand exposure: No alcohol intake: never substance use type: does not use caffeine: Yes what type of physical activity do you participate in: none seatbelt use: always HPI HPI HPI: VALENTINA MAHONEY, is a 71 M who presents to the office today for for surgical planning regarding recreation of a new left upper extremity arteriovenous hemodialysis fistula and temporary placement of tunneled hemodialysis catheters. That was my initial interpretation as to how I wanted to proceed. He has had this left forearm radiocephalic arteriovenous hemodialysis fistula in place since 2018 never requiring a fistulogram. 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 There has been increased difficulty in access with some infiltration. Previous office notes reflect the following Intake Visit Reasons: NEEDS FISTULAGRAM Chief Complaint: needs fistulagram [employer] Required: No Is patient in pain?: No Allergies Iodinated Contrast Media [Iodinated Contrast- Oral and IV Dye] Allergy (Verified 09/08/21 09:16) Hives Medications doxazosin 2 mg PO QHS 06/27/17 [History Confirmed 09/08/21] metoprolol succinate 50 mg PO SUTHSA 06/27/17 [History Confirmed 09/08/21] simvastatin 20 mg PO QHS 06/27/17 [History Confirmed 09/08/21] albuterol sulfate 2.5 mg INHALATION Q2H PRN 06/22/21 [History Confirmed 09/08/21] diltiazem HCl 180 mg PO SUTUSA 06/22/21 [History Confirmed 09/08/21] fluoxetine [Prozac] 20 mg PO DAILY 06/22/21 [History Confirmed 09/08/21] lisinopril 40 mg PO SUTUSA 06/22/21 [History Confirmed 09/08/21] melatonin 3 mg PO QHS 06/22/21 [History Confirmed 09/08/21] sucralfate 1 g PO 1HR_ACHS #0 tab 06/30/21 [Rx Confirmed 09/08/21] calcium carbonate 1,200 mg PO DAILY 08/03/21 [History Confirmed 09/08/21] pantoprazole 40 mg PO BID #60 tab 08/05/21 [Rx Confirmed 09/08/21] B qzzqcqg-A-vxclw acid-Zn tablet tab PO 09/08/21 [History Confirmed 09/08/21] bisacodyl 5 mg tablet,delayed release 5 mg PO ONCE 09/08/21 [History Confirmed 09/08/21] [facility] Medical History (Updated 09/08/21 @ 15:07 by Nichole YEPEZ, PAJackelin) A-fib Anemia CKD (chronic kidney disease) Depression Diabetes type 2, controlled Diabetic nephropathy Diabetic retinopathy ESRD (end stage renal disease) Gastrointestinal bleeding Gout Hyperlipemia Hypertension Irregular heart beat Nephrolithiasis Problem with dialysis access Surgical History Hx of appendectomy Hx of arteriovenostomy for renal dialysis Hx of cholecystectomy Hx of shoulder surgery Family History Mother Heart disease Father Heart disease Social History housing: snf number of children: 4 current occupational status: retired Smoking Status: Former smoker second hand exposure: No alcohol intake: never substance use type: does not use caffeine: Yes what type of physical activity do you participate in: none seatbelt use: always HPI HPI HPI: VALENTINA MAHONEY, is a 71 M who presents to the office today for multiple infiltration and poor clearance. Patient has a left forearm radial to cephalic arteriovenous fistula created on 07/04/[address] Long. Patient has never had a previous fistulogram. His last office visit with our office was in 2018. Patient resides at [facility]. He dialyzes on M, , W and F. Patient states dialysis has infiltrated the top access site twice. He notes they have attempted to move up to the inner upper extremity with no success. He is not currently maintained on any blood thinners. Patient did arrive to our office with a vomit bag noting he was nauseated from the car ride to this appointment. Patient also states he had his second COVID vaccine yesterday. He notes having COVID previously. ROS General General: Yes fatigue and weakness HEENT HEENT: No difficulty swallowing, eye injury, eye surgery, swollen glands or hoarseness Additional Details: Left eye blindness Endo Endocrine: No thyroid disease, diabetes mellitus, thyroid cancer, Hair loss, heat intolerance or cold intolerance Skin Skin: No rash or changing moles Breast Breast: No left breast lump, right breast lump, nipple discharge, breast pain, abnormal mammogram, abnormal US or breast enlargement Musc Musculoskeletal: No back problems, arthritis, rheumatoid arthritis, gout or joint pain Cardio Cardiovascular: Yes heart disease and high blood pressure; No murmur, pacemaker, atrial fibrillation, heart attack, heart stent, palpitations, shortness of breat with exertion or chest pain Psych Psychiatric: No depression, anxiety or hearing voices Resp Respiratory: No shortness of breath, No sleep apnea, No cough, No COPD, No asthma, No emphysema and No wheezing Gastro Gastrointestinal: No abdominal pain, No nausea or vomiting, No diarrhea, No constipation, No blood in stool, No acid reflux, No hemorrhoids, Yes ulcers, No gallbladder problem and No black,tarry stools Holger Hematologic: No blood thinners, No blood disorders, No bleeding, Yes anemia and No blood clots Neuro Neurologic: No system reviewed and no additional complaints, except as documented, No as per HPI, No abnormal gait, No abnormal hearing, No abnormal movements, No abnormal speech, No behavioral changes, No burning sensations, No confusion, No convulsions, No disequilibrium, No dizziness, No localized weakness, No frequent falls, No headache(s), No lack of coordination, No loss of vision, No memory loss, No numbness, No other visual disturbances, No radicular pain, No restless legs, No sensory deficit, No syncope, No tingling, No tremor(s), Yes weakness and No other Exam Const General: cooperative, disheveled and frail appearing Nutritional Appearance: thin and underweight Orientation: alert, awake and oriented x3 Other: In a wheelchair [facility] Head: normal to inspection Eyes General: appearance normal, both eyes and all related structures Neck Neck: normal visual inspection Neck mass: No Resp Effort & Inspection: normal respiratory effort Auscultation: clear to auscultation bilaterally Cardio Rate: regular rate Rhythm: regular rhythm GI Inspection: normal to inspection Palpation: soft Auscultation: normal bowel sounds Musc Cervical Spine: normal cervical lordosis Skin General: no rashes or lesions noted Neuro General: no focal motor deficits and CN's II-XI intact bilaterally Extrem General: normal to inspection Other: Left forearm AV fistula- good pulse, bruit and thrill. Dr. Long evaluated patient' fistula under ultrasound in the office. Superior access site demonstrated a thrombus from previous infiltration. Remaining fistula appears patent. Psych Appearance: disheveled Affect: flat Thought Process: normal Thought Content: normal COVID (Procedure Consent) Procedure Criteria Procedure Criteria: Yes Elective The surgeon/proceduralist and patient have discussed in detail the risk of exposure to and/or potential harm posed by the COVID-19 virus with having a surgery/procedure at this time versus the risk of delaying the surgery/procedure. It is not possible to know either the risk of delaying the surgery or procedure or chance of getting an infection with perfect accuracy, but a joint decision was made between the patient and the surgeon/proceduralist to proceed at this time with the scheduled surgery/procedure as indicated on the consent form. Assessment and Plan Assessment and Plan (1) Problem with dialysis access: Status: Acute Qualifiers: Encounter type: initial encounter Qualified Code(s): T82.898A - Other specified complication of vascular prosthetic devices, implants and grafts, initial encounter Plan - Nichole YEPEZ PA-C: Dr. Long has also evaluated this patient. Dr. Long will plan to perform a revision of the left forearm radial to cephalic AV fistula with plans to secure the cephalic vein inferior to the antecubital space and maintaining the basilic vein to the radial artery. Dr. Long mercedes a diagram of the specific area of revision. Patient does have excellent maturation of the basilic vein within the upper extremity. Patient would also need tunneled dialysis chest catheters placed in the right possible left chest at the same setting. Patient will not be able to start utilizing the revised fistula right away. Unfortunately patient was also dry heaving due to car sickness in our office. Patient will have to recover from illness prior to proceeding with proposed procedure. Dialysis may continue to utilize the fistula in the meantime. Will have to avoid the superior access site due to thrombus location. Our office will contact the snf to schedule this procedure. Patient will need to be NPO after midnight the night before the procedure. Patient has had the opportunity to ask and have questions answered. Patient verbally understands and agrees with the plan. ROS General General: Yes fatigue and weakness HEENT HEENT: No difficulty swallowing, eye injury, eye surgery, swollen glands or hoarseness Additional Details: Left eye blindness Endo Endocrine: No thyroid disease, diabetes mellitus, thyroid cancer, Hair loss, heat intolerance or cold intolerance Skin Skin: No rash or changing moles Breast Breast: No left breast lump, right breast lump, nipple discharge, breast pain, abnormal mammogram, abnormal US or breast enlargement Musc Musculoskeletal: No back problems, arthritis, rheumatoid arthritis, gout or joint pain Cardio Cardiovascular: Yes heart disease and high blood pressure; No murmur, pacemaker, atrial fibrillation, heart attack, heart stent, palpitations, shortness of breat with exertion or chest pain Psych Psychiatric: No depression, anxiety or hearing voices Resp Respiratory: No shortness of breath, No sleep apnea, No cough, No COPD, No asthma, No emphysema and No wheezing Gastro Gastrointestinal: No abdominal pain, No nausea or vomiting, No diarrhea, No constipation, No blood in stool, No acid reflux, No hemorrhoids, Yes ulcers, No gallbladder problem and No black,tarry stools Holger Hematologic: No blood thinners, No blood disorders, No bleeding, Yes anemia and No blood clots Neuro Neurologic: No system reviewed and no additional complaints, except as documented, No as per HPI, No abnormal gait, No abnormal hearing, No abnormal movements, No abnormal speech, No behavioral changes, No burning sensations, No confusion, No convulsions, No disequilibrium, No dizziness, No localized weakness, No frequent falls, No headache(s), No lack of coordination, No loss of vision, No memory loss, No numbness, No other visual disturbances, No radicular pain, No restless legs, No sensory deficit, No syncope, No tingling, No tremor(s), Yes weakness and No other Exam Resp Effort & Inspection: normal respiratory effort Other: Slightly diminished in the bases bilaterally Cardio Rate: regular rate Rhythm: regular rhythm Extrem Other: Left upper extremity demonstrates left forearm radiocephalic arteriovenous fistula with 2 areas of aneurysmal change. At the antecubital space there is seemingly good flow both into the cephalic vein and basilic vein with the branch point being just distal to the antecubital space. The left upper arm cephalic and basilic veins are widely patent. Assessment and Plan Assessment and Plan (1) Problem with dialysis access: Status: Acute Qualifiers: Encounter type: initial encounter Qualified Code(s): T82.898A - Other specified complication of vascular prosthetic devices, implants and grafts, initial encounter Plan - Dr. Tree Long MD: After my current review I think it is not unreasonable to plan creation of a left upper arm transposed cephalic vein to brachial artery arteriovenous hemodialysis fistula. I would need to ligate the cephalic vein after just distal to the antecubital space keeping flow to the basilic vein from the AV fistula open. Initially I thought that I would need to place tunneled dialysis catheters however if upon ligating the cephalic vein and creating the fistula the original radiocephalic fistula is still functioning that I anticipate that he would continue to get hemodialysis through that fistula until the upper arm fistula could be utilized. I would not want to do anything to compromise the left upper arm basilic vein outflow which also has matured nicely. We will do our best to avoid tunneled dialysis catheters but the patient is aware that if tunneled dialysis catheters are required then we will place them at the same setting. I would anticipate right internal jugular approach favorable over left internal jugular approach. The patient has had an opportunity to ask and have questions answered. He is scheduled for surgery tomorrow. Tree Long M.D., F.A.C.S. I have re-examined the patient. There are no clinical changes since date of exam.
--- NOTE | 2021-10-06 10:18 | EX.PCM.DISCH ---
Discharge Instructions Procedure Fistula Diet Discharge Diet: Renal Diet Activity Discharge Activity: May Not Drive (for 2-3 days or while taking narcotic pain medications.), May Shower and May Take a Tub Bath (in 5 days.) Lifting Restrictions: 5 pounds Keep extremity elevated above heart level: - (Keep arm elevated above the heart level for 3 days.) Dressing / Incision Call your doctor if your incision/area has: Continuous Slow Oozing, Sudden Increased Bleeding (apply pressure and call your doctor.), Increased Pain/ Swelling, Increased Redness and Foul Smelling Discharge Call your doctor if you observe: Fever of 101 or Higher Suture Line Care: Avoid Pulling/Pushing and Avoid Pinching/Bending Cleanse incision/area with: Keep Dressing Clean & Dry Additional Dressing/Incision Instructions:: Change or remove dressing in one day. May protect with a gauze bandaid. Follow Up Care Please Follow Up With: Tree Long MD When: Call [phone] to make an appointment for suture removal and follow up in 1 week. Test Results: Test results from this visit will be discussed in further detail at your follow-up appointment, if applicable. Discharge Plan Admission Attending Provider: Tree Long Primary Care Provider: Lloyd Bernal Discharge Orders/Prescriptions Prescriptions: No Action B abwenty-G-clztb acid-Zn Tablet 1 tab PO DAILY RF: 0 doxazosin 1 MG tablet 1 mg PO QHS RF: 0 metoprolol succinate 50 MG tablet extended release 24 hr 50 mg PO SUTHSA RF: 0 Hold Instructions: Resume on 07/07/21. simvastatin 40 MG tablet 10 mg PO QHS RF: 0 albuterol sulfate 2.5 mg /3 mL (0.083 %) Solution For Nebulization 2.5 mg INHALATION Q2H PRN (Reason: SOB) RF: 0 diltiazem HCl 180 mg Capsule,Extended Release 24hr 180 mg PO SUTHSA RF: 0 Hold Instructions: Resume on 07/07/21. melatonin 3 mg Tablet 3 mg PO QHS RF: 0 lisinopril 40 mg Tablet 40 mg PO SUTHSA RF: 0 Hold Instructions: Resume on 07/07/21. fluoxetine [Prozac] 20 mg Capsule 20 mg PO DAILY RF: 0 sucralfate 1 gram Tablet 1 g PO 1HR_ACHS Qty: 0 RF: 0 calcium carbonate 600 mg calcium (1,500 mg) Tablet 1,200 mg PO DAILY RF: 0 pantoprazole 40 mg tablet,delayed release (DR/EC) 40 mg PO BID Qty: 60 RF: 0
[2021-10-06] MEDS: Heparin Injection (Vial) 5,000 UNIT/ML VIAL 5000 UNIT (12:45)
[2021-10-06] MEDS: Lidocaine 1% (30 ml sdv) 30 ML Vial (12:45)
[2021-10-06] MEDS: Bupivacaine Mpf 0.5% 30 ML VIAL (12:45)
--- NOTE | 2021-10-06 13:34 | PCM.OPRPT ---
Problems Associated Problem List Diagnoses (1) Problem with dialysis access: Report of Operation Date of Procedure: 10/06/21 Pre-Operative Diagnosis: Increased difficulty accessing left forearm radiocephalic arteriovenous hemodialysis fistula Post-Operative Diagnosis: Same Surgery/Procedure Performed:: Left upper arm cephalic to brachial artery arteriovenous hemodialysis fistula creation Description of Surgical Findings:: Timeout informed consent was obtained. 71-year-old gentleman was taken to the operating placed on the table he received 2 g of Ancef he went underwent monitored anesthesia care the left upper extremity was sterilely prepped and draped 1% lidocaine mixed 50-50 with 0.5% Marcaine was used as a local anesthetic the course of the left upper arm cephalic vein had been marked. Local was instilled just proximal to the antecubital space then a slightly oblique transverse incision was created sharp blunt dissection was used used to dissect out the cephalic vein proximal to the antecubital space. Sharp and blunt dissection was used to identify the brachial artery. The patient received 7000 units of heparin based upon weight. The cephalic vein was ligated distally with a double loop of 4-0 Vicryl ligature. The end was slightly spatulated. Peripheral vascular clamps were placed on the brachial artery and 11 blade was used to make an arteriotomy which was extended with Guillen scissors. A end-to-side venous to arterial anastomosis was created with running 7-0 Prolene. A single repair suture of 7-0 Prolene required. Good hemostasis was achieved. At the completion there appeared to be good flow through the left upper arm brachial cephalic AV fistula with a palpable pulse and thrill. There remained a pulse and thrill within the forearm radiocephalic arteriovenous hemodialysis fistula. It was felt that the forearm could be utilized long enough to allow the upper arm to mature. No tunneled dialysis catheters were placed. The patient received 20 mg of protamine as reversal agent. The wound was closed with a deep layer of interrupted 3-0 Vicryl. The skin edges approximated running subicular 4-0 Monocryl. Steri-Strips Telfa OpSite dressing applied. Sponge and instrument and needle counts were reported to the surgeon to be correct. Specimens none. Drains none. Blood loss minimal. The patient was taken to the recovery room in satisfactory addition without apparent complication Tree Long M.D., F.A.C.S. Surgeon: Tree Long Type of Anesthesia: Local MAC Anesthesiologist: Hari Moreno
--- NOTE | 2021-10-06 15:39 | SUR.PHASEII ---
report called to Lu nurse at [facility].
== END 2021-10-06 23:59 | disposition home or self-care (01) ==
LOC: SDC 09:47 → AC 09:48
PROVIDERS: PCP Family Medicine; Referring Provider Surgery; Visit Provider Surgery
PROC: (CPT 36832; principal; 2021-10-06 11:45)
DX: T82.898A Other specified complication of vascular prosthetic devices, implants and grafts, initial encounter (principal); E11.22 Type 2 diabetes mellitus with diabetic chronic kidney disease; E11.319 Type 2 diabetes mellitus with unspecified diabetic retinopathy without macular edema; I12.0 Hypertensive chronic kidney disease with stage 5 chronic kidney disease or end stage renal disease; N18.6 End stage renal disease; E78.5 Hyperlipidemia, unspecified; Z87.891 Personal history of nicotine dependence; Z86.16 Personal history of COVID-19; F32.A Depression, unspecified; M10.9 Gout, unspecified; Z87.19 Personal history of other diseases of the digestive system; Z79.899 Other long term (current) drug therapy; Z87.442 Personal history of urinary calculi; Z90.49 Acquired absence of other specified parts of digestive tract; Z87.01 Personal history of pneumonia (recurrent)
CPT/HCPCS: 36832; 01844; 36415; 80048; 82962; 85027; 93005; J7040; J2405

== ENCOUNTER 2021-10-06 11:46 | Outpatient (CLI) | payer MEDICARE, OTHER, SELFPAY ==
[2021-10-06 11:40] LABS: Bedside Glucose 114 mg/dL (70-110)
== END 2021-10-06 23:59 | disposition home or self-care (01) ==
LOC: PAT 11-17 11:46
PROVIDERS: PCP Family Medicine; Visit Provider Surgery
DX: E11.9 Type 2 diabetes mellitus without complications (principal)
CPT/HCPCS: 82962

== ENCOUNTER 2021-10-20 05:33 | Day surgery (SDC) | payer MEDICARE, OTHER, SELFPAY ==
[2021-10-20] VITALS (10 sets, daily range): BP systolic 108–163; BP diastolic 59–79; PULSE 69–86; RESP 16–18; TEMP 36.4–36.9; O2SAT 94–98; BMI 21.5
--- NOTE | 2021-10-20 | IMM_PTH ---
PATIENT: VALENTINA MAHONEY LOC: EN U#:[id number] AGE/SX: 71/M ROOM: RE10/20/[address]: Dr. Hermes Interiano DO : 1950 BED: DIS: 10/20/2021 SPEC #: [id number] RECD: 10/21/21 14:09 STATUS: TRU REDannielle #: [id number] KENYATTA: 10/20/21 00:[address]: Hermes Interiano DEPT: IMMUNOHISTOCHEMISTRY RECD BY: Yolanda Talamantes ENTERED: 10/21/21 14:10 SP TYPE: IMMUNO OTHR DR: Dr. Lloyd Bernal MD Tissues: F - Sigmoid colon biopsy Procedures: SMA (add) CALPONIN-1 (add) DESMIN (add) Vimentin (initial) S-100 (add) PHYSICIAN & INSTITUTION [place] [id number] SPECIMEN INFORMATION: Tissue Source: F ? Sigmoid colon polyps Clinical Info: Anemia Specimen Number: [id number] F1 CPT code: 80717, 76108 x4 METHODOLOGY: Deparaffinized sections of prefer/formalin-fixed tissue or PAP/DQ stained slides are incubated with monoclonal/polyclonal antibodies/oligonucleotide probes. Localization is made via biotin free immunoperoxidase method. Appropriate controls are performed and reacted as expected. Results on target cell population are indicated in the following table: RESULTS: ANTIBODY / CLONE RESULT Block F1 Actin (1A4) positive Desmin (CE-R-11) positive S-100 (4C4.9) negative Calponin-1 (YO064R) positive Vimentin (V9) positive These tests were developed and their performance characteristics determined by [facility]. They may not have been cleared or approved by the U.S. Food and Drug Administration. The FDA has determined that such clearance or approval is not necessary. The above immunohistochemical/dualISH markers are ordered and reviewed by the Pathologist. INTERPRETATION: F. Sigmoid colon polyps, biopsy: Submucosal leiomyoma. SJ:cj 10/24/2021
[2021-10-20] MEDS: 0.9% Normal Saline 1,000 ML 15 ML IV (07:16)
[2021-10-20 07:21] LABS: Bedside Glucose 135 mg/dL (70-110)
--- NOTE | 2021-10-20 08:22 | HP.PCM_ITS ---
History and Physical Date of Admission: 10/20/21 71 M who presents to the office today for Last seen as [facility] inpatient 06/23/21. Presented to [facility] ED for evaluation of GIB AEB hematemesis and bright red rectal bleeding. Resides at [facility] and is nonverbal and a poor historian. Additional history of A.fib with anticoagulation, diabetes, CKD. EGD performed 06/24/21. Red blood noted in the entire stomach. Large ulcer in stomach likely secondary to H.Pylori and highly suspicious for adenocarcinoma. Recommend CEA bloodwork. Biopsy ? H.pylori negative. Negative for malignancy. Extensive ulceration and acute inflammation. CEA not performed. Stool Occult 08/03/21 and positive for blood. 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 On regular dialysis where he typically receives iron. 08/08/21 hemoglobin 7.9 with no transfusion. 6.7 hemoglobin at beginning of 08/04/21 with transfusion following. Dizziness, general edema have all resolved. Continues to have fatigue and decreased energy. ROS General General: Yes fatigue and weakness HEENT HEENT: No difficulty swallowing, eye injury, eye surgery, swollen glands or hoarseness Additional Details: Left eye blindness Endo Endocrine: No thyroid disease, diabetes mellitus, thyroid cancer, Hair loss, heat intolerance or cold intolerance Skin Skin: No rash or changing moles Breast Breast: No left breast lump, right breast lump, nipple discharge, breast pain, abnormal mammogram, abnormal US or breast enlargement Musc Musculoskeletal: No back problems, arthritis, rheumatoid arthritis, gout or joint pain Cardio Cardiovascular: Yes heart disease and high blood pressure; No murmur, pacemaker, atrial fibrillation, heart attack, heart stent, palpitations, shortness of breat with exertion or chest pain Psych Psychiatric: No depression, anxiety or hearing voices Resp Respiratory: No shortness of breath, No sleep apnea, No cough, No COPD, No asthma, No emphysema and No wheezing Gastro Gastrointestinal: No abdominal pain, No nausea or vomiting, No diarrhea, No constipation, No blood in stool, No acid reflux, No hemorrhoids, Yes ulcers, No gallbladder problem and No black,tarry stools Holger Hematologic: No blood thinners, No blood disorders, No bleeding, Yes anemia and No blood clots Neuro Neurologic: No system reviewed and no additional complaints, except as documented, No as per HPI, No abnormal gait, No abnormal hearing, No abnormal movements, No abnormal speech, No behavioral changes, No burning sensations, No confusion, No convulsions, No disequilibrium, No dizziness, No localized weakness, No frequent falls, No headache(s), No lack of coordination, No loss of vision, No memory loss, No numbness, No other visual disturbances, No radicular pain, No restless legs, No sensory deficit, No syncope, No tingling, No tremor(s), Yes weakness and No other Exam Const General: cooperative, disheveled and frail appearing Nutritional Appearance: thin and underweight Orientation: alert, awake and oriented x3 Other: In a wheelchair [facility] Head: normal to inspection Eyes General: appearance normal, both eyes and all related structures Neck Neck: normal visual inspection Neck mass: No Resp Effort & Inspection: normal respiratory effort Auscultation: clear to auscultation bilaterally Cardio Rate: regular rate Rhythm: regular rhythm GI Inspection: normal to inspection Palpation: soft Auscultation: normal bowel sounds Musc Cervical Spine: normal cervical lordosis Skin General: no rashes or lesions noted Neuro General: no focal motor deficits and CN's II-XI intact bilaterally Extrem General: normal to inspection Quality Reporting Tobacco Screening ([facility] 138) Smoking Status: Former smoker Assessment and Plan Assessment and Plan (1) Anemia: Status: Acute Qualifiers: Anemia type: unspecified type Qualified Code(s): D64.9 - Anemia, unspecified Plan - Dr. Mirza Friend, DO: Patient is hemoglobin is holding and mildly improving. He should have a repeat upper endoscopy to document healing of gastric ulcer and to see if there are any more AVMs. He also should have a colonoscopy as he has not had a colonoscopy. I have re-examined the patient. There are no clinical changes since date of exam.
--- NOTE | 2021-10-20 08:30 | EGD_PTH ---
PATIENT: VALENTINA MAHONEY LOC: EN U#:[id number] AGE/SX: 71/M ROOM: RE10/20/[address]: Dr. Hermes Interiano DO : 1950 BED: DIS: 10/20/2021 SPEC #: [id number] RECD: 10/20/21 10:18 STATUS: TRU KASHMIR #: [id number] KENYATTA: 10/20/21 08:[address]: Hermes Interiano DEPT: SURGICAL PATHOLOGY RECD BY: Shayla Long ENTERED: 10/20/21 13:02 SP TYPE: EGD BIOPSY [facility] DR: Dr. Lloyd Bernal MD Tissues: A - Duodenum, NOS B - Duodenum, NOS C - Cecum, NOS D - Ascending colon E - Transverse colon F - Sigmoid colon biopsy Procedures: Surgery Specimen Level IV HEADER OPERATION: Colonoscopy with polyp removal, EGD with gold probe cautery PRE-OP DIAGNOSIS: Anemia TISSUE SUBMITTED: A ? Duodenum biopsy, B ? Duodenal polyp biopsy, C ? Cecum polyps, D ? Ascending colon polyps, E ? Transverse colon polyps, F ? Sigmoid colon polyps MICROSCOPIC DIAGNOSIS A. Duodenum, biopsy: Fragments of duodenal mucosa with congestion and hemorrhage. B. Duodenal polyp, biopsy: Fragments of duodenal mucosa with Ulices gland hyperplasia. C. Cecum polyps, biopsy: Fragments of tubular adenoma. D. Ascending colon polyps, biopsy: Fragments of tubular adenoma. E. Transverse colon polyps, biopsy: Fragments of tubular adenoma. F. Sigmoid colon polyps, biopsy: Fragments of villous adenoma. A submucosal leiomyoma. See comment. SJ:cj 10/21/2021 COMMENT F. The smaller polyp is consistent with submucosal leiomyoma (1 cm in greatest dimension). Immunohistochemistry ([id number]) supports the above diagnosis. MICROSCOPIC DESCRIPTION Slides are reviewed. GROSS DESCRIPTION A - Received in fixative is one container labeled with the patient's name and designated duodenum biopsy. The specimen consists of multiple irregular fragments of light leggett soft tissue that in aggregate measure 1 x 0.5 x 0.1 cm. The specimen is totally submitted in one cassette. B - Received in fixative is one container labeled with the patient's name and designated duodenal polyp biopsy. The specimen consists of two irregular fragments of light leggett soft tissue that in aggregate measure 0.7 x 0.3 x 0.1 cm. The specimen is totally submitted in one cassette. C - Received in fixative is one container labeled with the patient's name and designated cecum polyps. The specimen consists of multiple irregular fragments of leggett soft tissue mixed with fecal material that in aggregate measure 2 x 1.3 x 0.3 cm. The specimen is totally submitted in one cassette. D - Received in fixative is one container labeled with the patient's name and designated ascending colon polyps. The specimen consists of multiple irregular fragments of light leggett soft tissue that in aggregate measure 2.5 x 2 x 0.3 cm. The specimen is totally submitted in one cassette. E - Received in fixative is one container labeled with the patient's name and designated transverse colon polyps. The specimen consists of multiple irregular fragments of light leggett soft tissue that in aggregate measure 1.5 x 1 x 0.2 cm. The specimen is totally submitted in one cassette. F - Received in fixative is one container labeled with the patient's name and designated sigmoid colon polyps. The specimen consists of two pieces of leggett-pink polyp measuring 1.5 x 1 x 1 cm and 1 x 0.5 x 0.8 cm. Also present in the container are multiple fragments of leggett soft tissue mixed with fecal material that in aggregate measure 1.5 x 0.5 x 0.1 cm. The two larger pieces of polyp are bisected. The specimen is totally submitted in two cassettes. / SJ:rg 10/20/2021 TC:1 CPT: 93602 x6
--- NOTE | 2021-10-20 08:59 | OP.CCLET_ITS ---
05/22/2022 Lloyd Bernal MD [address] [phone] Re : Upper GI endoscopy procedure for Tucker Cartwright Dear Dr. Bernal This procedure was performed on October. My impressions and recommendations are as follows: Impressions : - Grade I esophageal varices. - Red blood at the gastroesophageal junction. Treated with argon beam coagulation. - No gross lesions in the stomach. - Duodenitis. Biopsied. - One non-bleeding duodenal ulcer with no stigmata of bleeding. Biopsied. Recommendations : - Await pathology results. - Repeat upper endoscopy in 1 year for surveillance. - Return to GI clinic. - Continue present medications. My findings are described in the full procedure note, which is enclosed. If I can be of further assistance, please feel free to contact me at . Sincerely, Hermes Interiano, 10/20/2021 8:58:49 AM This report has been signed electronically.
--- NOTE | 2021-10-20 08:59 | OP.EGD_ITS ---
Patient Name: Tucker Cartwright Procedure Date: 10/20/2021 8:28 AM Date of : 1950 Age: 71 Procedure: Upper GI endoscopy Indications: Iron deficiency anemia Providers: Hermes Interiano DO Medicines: See the Anesthesia note for documentation of the administered medications Patient Profile: This is a 71 year old male. Refer to note in patient chart for documentation of history and physical. Patient has symptoms. Complications: No immediate complications. Procedure: Pre-Anesthesia Assessment: - Prior to the procedure, a History and Physical was performed, and patient medications and allergies were reviewed. The risks and benefits of the procedure and the sedation options and risks were discussed with the patient. All questions were answered and informed consent was obtained. Patient identification and proposed procedure were verified by the physician in the pre-procedure area. Mental Status Examination: alert and oriented. Airway Examination: normal oropharyngeal airway and neck mobility. Respiratory Examination: clear to auscultation. CV Examination: normal. Prophylactic Antibiotics: The patient does not require prophylactic antibiotics. Prior Anticoagulants: The patient has taken no previous anticoagulant or antiplatelet agents. ASA Grade Assessment: II - A patient with mild systemic disease. After reviewing the risks and benefits, the patient was deemed in satisfactory condition to undergo the procedure. The anesthesia plan was to use moderate sedation / analgesia (conscious sedation). Immediately prior to administration of medications, the patient was re-assessed for adequacy to receive sedatives. The heart rate, respiratory rate, oxygen saturations, blood pressure, adequacy of pulmonary ventilation, and response to care were monitored throughout the procedure. The physical status of the patient was re-assessed after the procedure. After obtaining informed consent, the endoscope was passed under direct vision. Throughout the procedure, the patient's blood pressure, pulse, and oxygen saturations were monitored continuously. The Endoscope was introduced through the mouth, and advanced to the second part of duodenum. The upper GI endoscopy was accomplished without difficulty. The patient tolerated the procedure well. Moderate Sedation: Moderate (conscious) sedation was administered by the endoscopy nurse and supervised by the endoscopist. The patient's oxygen saturation, heart rate, blood pressure and response to care were monitored. Total physician intraservice time was 15 minutes. Scope In: 8:40:40 AM Scope Out: 8:53:15 AM Total Procedure Duration Time 0 hours 12 minutes 35 seconds Findings: Grade I varices were found in the lower third of the esophagus. They were 5 mm in largest diameter. Red blood was found at the gastroesophageal junction. Coagulation for hemostasis using argon beam at 0.3 liters/minute and 20 arora was successful. Estimated blood loss was minimal. No gross lesions were noted in the entire examined stomach. Scattered moderate inflammation characterized by congestion (edema) and granularity was found in the duodenal bulb. Biopsies were taken with a cold forceps for histology. Verification of patient identification for the specimen was done. Estimated blood loss was minimal. One non-bleeding cratered duodenal ulcer with no stigmata of bleeding was found in the second portion of the duodenum. The lesion was 6 mm in largest dimension. Biopsies were taken with a cold forceps for histology. Impression: - Grade I esophageal varices. - Red blood at the gastroesophageal junction. Treated with argon beam coagulation. - No gross lesions in the stomach. - Duodenitis. Biopsied. - One non-bleeding duodenal ulcer with no stigmata of bleeding. Biopsied. Recommendation: - Await pathology results. - Repeat upper endoscopy in 1 year for surveillance. - Return to GI clinic. - Continue present medications. Procedure Code(s): --- Professional --- 17594, 59, Esophagogastroduodenoscopy, flexible, transoral; with control of bleeding, any method 29306, Esophagogastroduodenoscopy, flexible, transoral; with biopsy, single or multiple 99985, 59, Moderate sedation services provided by the same physician or other qualified health career technical counselor performing the diagnostic or therapeutic service that the sedation supports, requiring the presence of an independent trained observer to assist in the monitoring of the patient's level of consciousness and physiological status; initial 15 minutes of intraservice time, patient age 5 years or older CPT copyright 2017 [employer]. All rights reserved. The codes documented in this report are preliminary and upon consumer relations complaint clerk review may be revised to meet current compliance requirements. Hermes Interiano DO 10/20/2021 8:58:49 AM This report has been signed electronically. Number of Addenda: 1 Note Initiated On: 10/20/2021 8:28 AM Addendum Number: 1 Addendum Date: 05/22/2022 6:44:14 AM MAC was used for sedation during this procedure. Hermes Interiano DO 05/22/2022 6:44:18 AM This report has been signed electronically.
--- NOTE | 2021-10-20 10:02 | OP.COLON_ITS ---
Patient Name: Tucker Cartwright Procedure Date: 10/20/2021 8:55 AM Date of : 1950 Age: 71 Procedure: Colonoscopy Indications: Iron deficiency anemia Providers: Hermes Interiano DO Medicines: See the Anesthesia note for documentation of the administered medications Patient Profile: This is a 71 year old male. Refer to note in patient chart for documentation of history and physical. Patient has symptoms. Last Colonoscopy: none. The patient's first colonoscopy is today. Complications: No immediate complications. Procedure: Pre-Anesthesia Assessment: - Prior to the procedure, a History and Physical was performed, and patient medications and allergies were reviewed. The risks and benefits of the procedure and the sedation options and risks were discussed with the patient. All questions were answered and informed consent was obtained. Patient identification and proposed procedure were verified by the physician in the pre-procedure area. Mental Status Examination: alert and oriented. Airway Examination: normal oropharyngeal airway and neck mobility. Respiratory Examination: clear to auscultation. CV Examination: normal. Prophylactic Antibiotics: The patient does not require prophylactic antibiotics. Prior Anticoagulants: The patient has taken no previous anticoagulant or antiplatelet agents. ASA Grade Assessment: II - A patient with mild systemic disease. After reviewing the risks and benefits, the patient was deemed in satisfactory condition to undergo the procedure. The anesthesia plan was to use moderate sedation / analgesia (conscious sedation). Immediately prior to administration of medications, the patient was re-assessed for adequacy to receive sedatives. The heart rate, respiratory rate, oxygen saturations, blood pressure, adequacy of pulmonary ventilation, and response to care were monitored throughout the procedure. The physical status of the patient was re-assessed after the procedure. After I obtained informed consent, the scope was passed under direct vision. Throughout the procedure, the patient's blood pressure, pulse, and oxygen saturations were monitored continuously. The pediatric colonoscope was introduced through the anus and advanced to the cecum, identified by appendiceal orifice and ileocecal valve. The colonoscopy was performed without difficulty. The patient tolerated the procedure well. The quality of the bowel preparation was good. Moderate Sedation: Moderate (conscious) sedation was administered by the endoscopy nurse and supervised by the endoscopist. The following parameters were monitored: oxygen saturation, heart rate, blood pressure, and response to care. Total physician intraservice time was 15 minutes. Scope In: 9:01:27 AM Scope Withdrawal Time 0 hours 48 minutes 40 seconds Scope Out: 9:54:33 AM Total Procedure Duration Time 0 hours 53 minutes 6 seconds Findings: The perianal and digital rectal examinations were normal. 20 sessile polyps were found in the rectum, sigmoid colon, transverse colon, ascending colon and cecum. The polyps were 1 to 2 mm in size. These polyps were removed with a hot snare. Resection and retrieval were complete. Verification of patient identification for the specimen was done. Estimated blood loss was minimal. One large localized angiodysplastic lesion with bleeding was found in the ascending colon. Coagulation for hemostasis using argon beam at 0.3 liters/minute and 20 arora was successful. Estimated blood loss was minimal. A few small-mouthed diverticula were found in the sigmoid colon. Impression: - 20 1 to 2 mm polyps in the rectum, in the sigmoid colon, in the transverse colon, in the ascending colon and in the cecum, removed with a hot snare. Resected and retrieved. - One bleeding colonic angiodysplastic lesion. Treated with argon beam coagulation. - Diverticulosis in the sigmoid colon. Recommendation: - Discharge patient to home. - Resume previous diet. - Continue present medications. - Await pathology results. - Repeat colonoscopy in 1 year for surveillance of multiple polyps. Procedure Code(s): --- Professional --- 60582, 59, Colonoscopy, flexible; with control of bleeding, any method 27279, Colonoscopy, flexible; with removal of tumor(s), polyp(s), or other lesion(s) by snare technique 74683, 59, Moderate sedation services provided by the same physician or other qualified health health care assistant performing the diagnostic or therapeutic service that the sedation supports, requiring the presence of an independent trained observer to assist in the monitoring of the patient's level of consciousness and physiological status; initial 15 minutes of intraservice time, patient age 5 years or older CPT copyright 2017 [employer]. All rights reserved. The codes documented in this report are preliminary and upon soup mixer review may be revised to meet current compliance requirements. Hermes Interiano DO 10/20/2021 10:02:21 AM This report has been signed electronically. Number of Addenda: 1 Note Initiated On: 10/20/2021 8:55 AM Addendum Number: 1 Addendum Date: 05/22/2022 6:44:27 AM MAC was used for sedation during this procedure. Hermes Interiano DO 05/22/2022 6:44:31 AM This report has been signed electronically.
--- NOTE | 2021-10-20 10:03 | OP.CCLET_ITS ---
05/22/2022 Lloyd Bernal MD [address] [phone] Re : Colonoscopy procedure for Tucker Cartwright Dear Dr. Bernal This procedure was performed on October. My impressions and recommendations are as follows: Impressions : - 20 1 to 2 mm polyps in the rectum, in the sigmoid colon, in the transverse colon, in the ascending colon and in the cecum, removed with a hot snare. Resected and retrieved. - One bleeding colonic angiodysplastic lesion. Treated with argon beam coagulation. - Diverticulosis in the sigmoid colon. Recommendations : - Discharge patient to home. - Resume previous diet. - Continue present medications. - Await pathology results. - Repeat colonoscopy in 1 year for surveillance of multiple polyps. My findings are described in the full procedure note, which is enclosed. If I can be of further assistance, please feel free to contact me at . Sincerely, Hermes Interiano, 10/20/2021 10:02:21 AM This report has been signed electronically.
== END 2021-10-20 23:59 | disposition home or self-care (01) ==
LOC: EN 05:42 → AC 05:42
PROVIDERS: PCP Family Medicine; Referring Provider Family Medicine; Visit Provider Internal Medicine Gastroenterology
PROC: 0DJD8ZZ Inspection of Lower Intestinal Tract, Via Natural or Artificial Opening Endoscopic (ICD-10-PCS; CPT 45378; principal; 2021-10-20 08:25)
DX: K55.21 Angiodysplasia of colon with hemorrhage (principal); I85.01 Esophageal varices with bleeding; Z99.2 Dependence on renal dialysis; E11.22 Type 2 diabetes mellitus with diabetic chronic kidney disease; I12.0 Hypertensive chronic kidney disease with stage 5 chronic kidney disease or end stage renal disease; N18.6 End stage renal disease; I48.91 Unspecified atrial fibrillation; K57.30 Diverticulosis of large intestine without perforation or abscess without bleeding; Z87.891 Personal history of nicotine dependence; K29.80 Duodenitis without bleeding; Z90.49 Acquired absence of other specified parts of digestive tract; K26.9 Duodenal ulcer, unspecified as acute or chronic, without hemorrhage or perforation; D64.9 Anemia, unspecified; D12.0 Benign neoplasm of cecum; D12.2 Benign neoplasm of ascending colon; D12.3 Benign neoplasm of transverse colon; D12.5 Benign neoplasm of sigmoid colon; Z79.01 Long term (current) use of anticoagulants; Z79.899 Other long term (current) drug therapy; E78.5 Hyperlipidemia, unspecified; M10.9 Gout, unspecified; Z87.01 Personal history of pneumonia (recurrent); F32.A Depression, unspecified; Z87.19 Personal history of other diseases of the digestive system
CPT/HCPCS: 45385; 43239; 43255; 45382; 82962; 88305; 88341; 88342; J7030; J7040; J2405

== ENCOUNTER → 2021-10-24 | Outpatient (REF) | payer MEDICARE, OTHER, SELFPAY ==
[2021-10-24 09:06] LABS: Hematocrit 29.1 % (40-54); Hemoglobin 9.2 g/dL (13.0-16.5); Mean Corp Hgb Conc 31.6 g/dL (32-36); Mean Corpuscular Hgb 26.9 pg (27.0-32.0); Mean Corpuscular Volume 85.1 fL (80-94); Platelet Count 275 K/mm3 (150-450); RBC Distribution Width CV 16.5 % (11.6-14.6); RBC Distribution Width SD 50.5 fl (35.1-43.9); Red Blood Count 3.42 M/mm3 (4.6-6.2)
[2021-10-24 09:18] LABS: Anion Gap 8 (5-15); BUN 68 mg/dL (7-18); BUN/Creat Ratio 11.5 RATIO (10-20); Calcium,Total 8.6 mg/dL (8.5-10.1); Chloride 96 mmol/L (98-107); Creatinine, Serum 5.91 mg/dL (0.70-1.30); EST Glomerular Filtration Rate 10 mL/min (>60); Est Glom Filt Rate - Afr Amer 12 mL/min (>60); Glucose 90 mg/dL (74-106); Potassium 4.4 mmol/L (3.5-5.1); Sodium Level 137 mmol/L (136-145)
== END | disposition home or self-care (01) ==
LOC: OLS.SW300 04:00
PROVIDERS: PCP Family Medicine; Referring Provider Family Medicine; Visit Provider Family Medicine
DX: I10 Essential (primary) hypertension (principal); N18.6 End stage renal disease
CPT/HCPCS: 36415; 80048; 85027

== ENCOUNTER 2021-11-05 07:15 | Outpatient (REF) | payer MEDICARE, OTHER, SELFPAY ==
[2021-11-05 08:23] LABS: Hemoglobin 6.8 g/dL (13.0-16.5)
== END 2021-11-05 23:59 | disposition home or self-care (01) ==
LOC: OLS.SW300 07:15
PROVIDERS: PCP Family Medicine; Visit Provider Family Medicine
DX: D64.9 Anemia, unspecified (principal)
CPT/HCPCS: 36415; 85014; 85018

== ENCOUNTER 2021-11-08 05:00 | Outpatient (REF) | payer MEDICARE, OTHER, SELFPAY ==
[2021-11-08 07:04] LABS: Hematocrit 22.6 % (40-54); Hemoglobin 7.3 g/dL (13.0-16.5); Mean Corp Hgb Conc 32.3 g/dL (32-36); Mean Corpuscular Hgb 28.9 pg (27.0-32.0); Mean Corpuscular Volume 89.3 fL (80-94); Mean Platelet Vol. 9.1 fl (6.2-12.0); Platelet Count 268 K/mm3 (150-450); RBC Distribution Width CV 19.2 % (11.6-14.6); RBC Distribution Width SD 62.6 fl (35.1-43.9); Red Blood Count 2.53 M/mm3 (4.6-6.2); White Blood Count 4.1 K/mm3 (4.4-11.0)
== END 2021-11-08 23:59 | disposition home or self-care (01) ==
LOC: OLS.SW300 05:00
PROVIDERS: PCP Family Medicine; Visit Provider Family Medicine
DX: D64.9 Anemia, unspecified (principal)
CPT/HCPCS: 36415; 85027

== ENCOUNTER → 2021-11-21 | Outpatient (REF) | payer MEDICARE, OTHER, SELFPAY ==
[2021-11-21 08:23] LABS: Hematocrit 27.3 % (40-54); Hemoglobin 8.8 g/dL (13.0-16.5); Mean Corp Hgb Conc 32.2 g/dL (32-36); Mean Corpuscular Volume 90.1 fL (80-94); Mean Platelet Vol. 9.4 fl (6.2-12.0); Platelet Count 286 K/mm3 (150-450); RBC Distribution Width CV 19.1 % (11.6-14.6); RBC Distribution Width SD 62.6 fl (35.1-43.9); Red Blood Count 3.03 M/mm3 (4.6-6.2); White Blood Count 5.2 K/mm3 (4.4-11.0)
[2021-11-21 08:39] LABS: Anion Gap 7 (5-15); BUN 70 mg/dL (7-18); BUN/Creat Ratio 11.2 RATIO (10-20); Calcium,Total 8.4 mg/dL (8.5-10.1); Chloride 94 mmol/L (98-107); Creatinine, Serum 6.24 mg/dL (0.70-1.30); EST Glomerular Filtration Rate 9 mL/min (>60); Est Glom Filt Rate - Afr Amer 11 mL/min (>60); Glucose 123 mg/dL (74-106); Sodium Level 136 mmol/L (136-145)
== END | disposition home or self-care (01) ==
LOC: OLS.SW300 04:00
PROVIDERS: PCP Family Medicine; Referring Provider Family Medicine; Visit Provider Family Medicine
DX: I10 Essential (primary) hypertension (principal)
CPT/HCPCS: 36415; 80048; 85027